=== PATIENT | female | born 1985 | race Caucasian/White ===

== ENCOUNTER 2016-08-30 21:06 | Emergency (ER) | payer OTHER ==
[~2016-08-30] VITALS: Ht 157.5 cm; Wt 113.4 kg
[~2016-08-30 21:06] MED LIST: HYDR-757 PO; IBUP-1773 PO; LETR2.5T4 PO; MTF500T PO
--- OUTSIDE RECORDS SUMMARY | 2016-08-30 21:11 | XMS REPORT ---
Author SONAM Jones [facility] eClinicalWorks Address Unknown Phone Unavailable Care Team Providers [facility] [employer] Team Member Name Role Phone SONAM FERNANDEZ CP Unavailable Allergies No Known Allergies Problems Problem Type Condition Code Onset Dates Condition Status Problem Syncope and collapse 780.2 Active Problem Female infertility of unspecified origin 628.9 Active Problem Encounter for dental examination Z01.20 Active Assessment Encounter for test, result unknown Z32.00 Active Problem Acute upper respiratory infections of unspecified site 465.9 Active Problem Pain in joint, shoulder region 719.41 Active Medications No Known Medications Procedures Procedure Coding System Code Date VENIPUNCT, ROUTINE* CPT-4 91325 January 24, 2016 CHORIONIC GONADOTROPIN ASSAY CPT-4 91095 January 24, 2016 Results No Known Results Summary Purpose eClinicalWorks Submission
--- NOTE | 2016-08-30 21:25 | ED Abdominal Pain ---
General Chief Complaint: Abdominal/GI Problems Stated Complaint: ABD PAIN Nursing Triage Note: PT C/O DIFFUSE ABD CRAMPING, N/V/D SINCE LAST NOC. Sepsis Screen: No Definite Risk Source of Information: Patient Exam Limitations: No Limitations History of Present Illness Time Seen By Provider: 21:24 Initial Comments To ER with diffuse abdominal pain and cramping. Pain is periumbilical both sides. Began this evening. She had nausea vomiting and diarrhea that started last night but subsided this morning. She has not had any nausea vomiting or diarrhea since 9 a.m. this morning with the pain has gotten worse. Timing/Duration: 1-2 Days Severity/Quality: Cramping Location: Generalized Abdomen, Periumbilical Radiation: No Radiation Activities at Onset: None Associated Symptoms: No Back Pain, No Chest Pain, No Diaphoresis, No Fever/ Chills, Nausea/Vomiting Allergies and Home Medications Allergies Coded Allergies: No Known Drug Allergies (Unverified , 09/12/11) Home Medications Hydrocodone Bit/Acetaminophen 1 Each Tablet #30 1-2 EA PO Q4H PRN PRN MILD PAIN Prescribed by: JAH ROLLE on 10/01/14 0954 Ibuprofen 600 Mg Tablet #60 600 MG PO Q6H Prescribed by: JAH ROLLE on 10/01/14 0954 Metformin Hcl 500 Mg Tablet 500 MG PO DAILY (Reported) Review of Systems Constitutional: see HPINo chills, No fever EENTM: No Symptoms Reported Respiratory: No Symptoms Reported Cardiovascular: No Symptoms Reported Gastrointestinal: See HPI Abdominal Pain Diarrhea Nausea Vomiting Genitourinary: No Symptoms Reported Musculoskeletal: no symptoms reported Skin: no symptoms reported Psychiatric/Neurological: No Symptoms Reported Endocrine: No Symptoms Reported Hematologic/Lymphatic: No Symptoms Reported Past Uujssfw-Ohcpqj-Barkhq Hx Patient Social History Alcohol Use: Denies Use Recreational Drug Use: No Smoking Status: Never a Smoker 2nd Hand Smoke Exposure: No Recent Foreign Travel: No Contact w/Someone Who Travel: No Recent Infectious Disease Expo: No Recent Hopitalizations: No Seasonal Allergies Seasonal Allergies: No Surgeries HX Surgeries: Yes (LAPAROCOPY) Respiratory Hx Respiratory Disorders: No Cardiovascular Hx Cardiac Disorders: No Neurological Hx Neurological Disorders: No Reproductive System Hx Reproductive Disorders: Yes Genitourinary Hx Genitourinary Disorders: No Gastrointestinal Hx Gastrointestinal Disorders: No Musculoskeletal Hx Musculoskeletal Disorders: No Endocrine Hx Endocrine Disorders: No HEENT HX ENT Disorders: Yes (CONTACTS) Cancer Hx Cancer: No Psychosocial Hx Psychiatric Problems: No Integumentary HX Skin/Integumentary Disorder: No Blood Transfusions Hx Blood Disorders: Yes Physical Exam Vital Signs VS - Last 72 Hours, by Label 08/30/16 21:16 Temp 98.9 Pulse 90 Resp 18 B/P 145/84 Pulse Ox 99 O2 Delivery Room Air Capillary Refill : Less Than 3 Seconds General Appearance: WD/WN no apparent distress HEENT: PERRL/EOMI normal ENT inspection Neck: non-tender full range of motion Respiratory: normal breath sounds no respiratory distress no accessory muscle use Cardiovascular: regular rate, rhythm no murmur Gastrointestinal: normal bowel sounds soft other (there is tenderness to palpation only on the left upper quadrant) Extremities: normal range of motion non-tender Neurologic/Psychiatric: alert normal mood/affect oriented x 3 Skin: normal color warm/dry Progress/Results/Core Measures Results/Orders Lab Results Laboratory Tests Test 08/30/16 21:30 08/30/16 21:42 Range/Units Alanine Aminotransferase (ALT/SGPT) 45 0-55 U/L Albumin 4.2 3.2-4.5 G/DL Alkaline Phosphatase 66 40-136 U/L Anion Gap 14 5-14 MMOL/L Aspartate Amino Transf (AST/SGOT) 37 H 5-34 U/L BUN/Creatinine Ratio 12 Basophils # (Auto) 0.0 0.0-0.1 10^3/uL Basophils (%) (Auto) 0 0-10 % Blood Urea Nitrogen 9 7-18 MG/DL Calcium Level 9.4 8.5-10.1 MG/DL Carbon Dioxide Level 19 L 21-32 MMOL/L Chloride Level 106 98-107 MMOL/L Creatinine 0.77 0.60-1.30 MG/DL Eosinophils # (Auto) 0.1 0.0-0.3 10^3/uL Eosinophils (%) (Auto) 1 0-10 % Estimat Glomerular Filtration Rate > 60 Glucose Level 110 H 70-105 MG/DL Hematocrit 43 35-52 % Hemoglobin 14.4 11.5-16.0 G/DL Lymphocytes # (Auto) 0.7 L 1.0-4.0 X 10^3 Lymphocytes (%) (Auto) 7 L 12-44 % Mean Corpuscular Hemoglobin 31 25-34 PG Mean Corpuscular Hemoglobin Concent 33 32-36 G/DL Mean Corpuscular Volume 93 80-99 FL Mean Platelet Volume 10.3 7.4-10.4 FL Monocytes # (Auto) 0.6 0.0-1.0 X 10^3 Monocytes (%) (Auto) 6 0-12 % Neutrophils # (Auto) 8.1 H 1.8-7.8 X 10^3 Neutrophils (%) (Auto) 86 H 42-75 % Platelet Count 312 130-400 10^3/uL Potassium Level 4.0 3.6-5.0 MMOL/L Red Blood Count 4.63 4.35-5.85 10^6/uL Red Cell Distribution Width 13.3 10.0-14.5 % Sodium Level 139 135-145 MMOL/L Total Bilirubin 0.4 0.1-1.0 MG/DL Total Protein 7.6 6.4-8.2 G/DL White Blood Count 9.4 4.3-11.0 10^3/uL Urine Bacteria NONE /HPF Urine Bilirubin NEGATIVE NEGATIVE Urine Casts NONE /LPF Urine Clarity CLEAR Urine Color YELLOW Urine Crystals NONE /LPF Urine Culture Indicated NO Urine Glucose (UA) NEGATIVE NEGATIVE Urine Ketones NEGATIVE NEGATIVE Urine Leukocyte Esterase NEGATIVE NEGATIVE Urine Mucus NEGATIVE /LPF Urine Nitrite NEGATIVE NEGATIVE Urine Protein NEGATIVE NEGATIVE Urine RBC NONE /HPF Urine RBC (Auto) NEGATIVE NEGATIVE Urine Specific [place] 1.020 1.016-1.022 Urine Squamous Epithelial Cells 5-10 /HPF Urine Urobilinogen NORMAL NORMAL MG/DL Urine WBC RARE /HPF Urine pH 5 5-9 My Orders Orders-GRACE GIL APRN Saline Lock/Iv-Start (08/30/16 21:22) Cbc With Automated Diff (08/30/16 21:22) Comprehensive Metabolic Panel (08/30/16 21:22) Lipase (08/30/16 21:22) Ua Culture If Indicated (08/30/16 21:22) Hyoscyamine Sl Tablet (Levsin Sl Tablet) (08/30/16 21:30) Ketorolac Injection (Toradol Injection) (08/30/16 21:30) Lactated Ringers (Lr 1000 Ml Iv Solution (08/30/16 21:30) Urine Bedside (08/30/16 21:22) Medications Given in ED Current Medications Medications Dose Ordered Sig/Milly Route Start Time Stop Time Status Last Admin Dose Admin Hyoscyamine Sulfate 0.25 mg ONCE ONCE PO 08/30/16 21:30 08/30/16 21:31 DC 08/30/16 21:35 0.25 MG Ketorolac Tromethamine 30 mg ONCE ONCE IVP 08/30/16 21:30 08/30/16 21:31 DC 08/30/16 21:35 30 MG Vital Signs/I&O Vital Sign - Last 12Hours 08/30/16 21:16 Temp 98.9 Pulse 90 Resp 18 B/P 145/84 Pulse Ox 99 O2 Delivery Room Air Blood Pressure Mean: 104 Departure Impression Impression: Primary Impression: Nausea vomiting and diarrhea Disposition: HOME, SELF-CARE Condition: Stable Departure-Patient Inst. Decision time for Depature: 22:11 Referrals: NO,LOCAL PHYSICIAN (PCP) Primary Care Physician Patient Instructions: No Instuctions Given Add. Discharge Instructions: 1. Drink plenty of fluids. 2. Nausea medication as needed 3. Cramping medication as needed 3. Follow-up with your doctor next week 4. Return to ER for any worsening such as fevers, worsening pain, bloody diarrhea. All discharge instructions reviewed with patient and/or family. Voiced understanding. Scripts Hyoscyamine Sulfate (Levsin-Sl)0.125 Mg Tab.subl0.125 Mg SL Q4H PRN CRAMPS #10 TAB Prov:GRACE GIL APRN 08/30/16 Ondansetron (Zofran Odt)8 Mg Tab.rapdis8 Mg PO Q6H PRN NAUSEA/VOMITING #10 TAB Prov:GRACE GIL APRN 08/30/16 Work/School Note: Work Release Form Date Seen in the Emergency Department: Aug 30, 2016 Return to Work: Sep 01, 2016 GRACE GIL APRN Aug 30, 2016 21:25
[2016-08-30] MEDS ORDERED: LACTATED RINGERS 1,000 ML IV SCH (21:30)
[2016-08-30] MEDS ORDERED: HYOSCYAMINE 0.125 MG (LEVSIN) TAB PO ONE (21:30)
[2016-08-30] MEDS ORDERED: KETOROLAC 30 MG/ML VIAL IVP ONE (21:30)
[2016-08-30 21:41] LABS: BASOPHILS % (AUTO) 0 % (0-10); EOSINOPHILS # (AUTO) 0.1 10^3/uL (0.0-0.3); EOSINOPHILS % (AUTO) 1 % (0-10); LYMPHOCYTES # (AUTO) 0.7 X 10^3 (1.0-4.0); LYMPHOCYTES % (AUTO) 7 % (12-44); MEAN CORPUSCULAR HEMOGLOBIN 31 PG (25-34); MEAN CORPUSCULAR HGB CONC 33 G/DL (32-36); MEAN CORPUSCULAR VOLUME 93 FL (80-99); MEAN PLATELET VOLUME 10.3 FL (7.4-10.4); MONOCYTES # (AUTO) 0.6 X 10^3 (0.0-1.0); MONOCYTES % (AUTO) 6 % (0-12); NEUTROPHILS # (AUTO) 8.1 X 10^3 (1.8-7.8); NEUTROPHILS % (AUTO) 86 % (42-75); PLATELET COUNT 312 10^3/uL (130-400); RED BLOOD COUNT 4.63 10^6/uL (4.35-5.85); RED CELL DISTRIBUTION WIDTH 13.3 % (10.0-14.5); WHITE BLOOD COUNT 9.4 10^3/uL (4.3-11.0)
[2016-08-30 21:53] LABS: BILIRUBIN,URINE NEGATIVE (NEGATIVE); KETONES,URINE NEGATIVE (NEGATIVE); LEUKOCYTE ESTERASE ,URINE NEGATIVE (NEGATIVE); NITRITE,URINE NEGATIVE (NEGATIVE); PH,URINE 5 (5-9); PROTEIN,URINE NEGATIVE (NEGATIVE); UROBILINOGEN,URINE NORMAL (NORMAL)
[2016-08-30 22:00] LABS: WBC,URINE RARE /HPF
[2016-08-30 22:05] LABS: ALANINE AMINOTRANSFERASE 45 U/L (0-55); ALBUMIN 4.2 G/DL (3.2-4.5); ANION GAP 14 MMOL/L (5-14); ASPARTATE AMINO TRANSFERASE 37 U/L (5-34); BILIRUBIN,TOTAL 0.4 MG/DL (0.1-1.0); BLOOD UREA NITROGEN 9 MG/DL (7-18); BUN/CREATININE RATIO 12; CALCIUM 9.4 MG/DL (8.5-10.1); CARBON DIOXIDE 19 MMOL/L (21-32); CHLORIDE 106 MMOL/L (98-107); CREATININE SERUM 0.77 MG/DL (0.60-1.30); GFR ESTIMATED > 60; GLUCOSE 110 MG/DL (70-105); SODIUM 139 MMOL/L (135-145); TOTAL PROTEIN 7.6 G/DL (6.4-8.2)
[2016-08-30] MEDS ORDERED: ONDA8TAB9 PO (22:12)
[2016-08-30] MEDS ORDERED: HYOS0.1283 SL (22:12)
[2016-08-30 22:18] LABS: LIPASE 25 U/L (8-78)
[2016-08-30 22:28] VITALS: BP 145/84
== END 2016-08-30 22:30 | disposition home or self-care (01) ==
LOC: EDUNIT# 21:06 → ER 21:07
DX: R11.2 Nausea with vomiting, unspecified (principal); R19.7 Diarrhea, unspecified
CPT/HCPCS: 36415; 80053; 81000; 83690; 85025; 96374

== ENCOUNTER 2017-03-03 02:37 | Emergency (ER) | payer OTHER ==
[~2017-03-03] VITALS: Ht 157.5 cm; Wt 113.4 kg
[~2017-03-03 02:37] MED LIST changes: +HYOS0.1283 SL; +ONDA8TAB9 PO
--- NOTE | 2017-03-03 03:09 | ED Lower Extremity ---
General Chief Complaint: Lower Extremity Stated Complaint: LEFT ANKLE PAIN Nursing Triage Note: Pt report worsening pain over 24 hrs in left foot. Pt states she no longer can stand to bear weight in the night when getting up. Pt has tried Ibuprofen. Pt denies any injury. Nursing Sepsis Screen: No Definite Risk Source: patient, spouse Exam Limitations: no limitations History of Present Illness Time seen by provider: 03:02 Initial Comments Patient states she presents for a left foot swelling and pain started approximately 24 hours ago is progressively gotten worse not given her any rest tonight. She has been taking ibuprofen 4-6 tablets every 6 hours around-the- clock as well as Tylenol. She has a history of PCO S but no diabetes or prior injury to this foot. She has no wounds to the foot. It is painful over the dorsum with some swelling compared to right. She is right-handed. She says never injured the foot never had a fracture of the foot never had a major ankle sprain. She has no pain in her calfs nor shortness of breath no redness nor tenderness nor cough or hemoptysis. She says this is happened once or twice before to this left foot and she taken to urgent care and was told to do rice therapy which she did and it eventually got better. She's never had an x-ray of it nor any workup prove why it's injured. Allergies and Home Medications Allergies Coded Allergies: No Known Drug Allergies (Unverified , 09/12/11) Home Medications Hydrocodone Bit/Acetaminophen 1 Each Tablet, 1-2 EA PO Q4H PRN for MILD PAIN, # 30 Prescribed by: JAH ROLLE on 10/01/14 0954 Hyoscyamine Sulfate 0.125 Mg Tab.subl, 0.125 MG SL Q4H PRN for CRAMPS, #10 Prescribed by: GRACE GIL on 08/30/162211 Ibuprofen 600 Mg Tablet, 600 MG PO Q6H, #60 Prescribed by: JAH ROLLE on 10/01/14 0954 Metformin Hcl 500 Mg Tablet, 500 MG PO DAILY, (Reported) Ondansetron 8 Mg Tab.rapdis, 8 MG PO Q6H PRN for NAUSEA/VOMITING, #10 Prescribed by: GRACE GIL on 08/30/162211 Constitutional: No chills, No diaphoresis EENTM: No blurred vision, No double vision Respiratory: No cough, No hemoptysis, No short of breath Cardiovascular: No chest pain, No palpitations Gastrointestinal: No abdominal pain, No constipation, No nausea Genitourinary: No discharge, No dysuria Musculoskeletal: see HPI, No back pain, joint pain Skin: No pruritus, No rash Psychiatric/Neurological: Denies Headache, Denies Numbness, Denies Paresthesia Past Qgjeplp-Euleoe-Pffuah Hx Patient Social History Alcohol Use: Rarely Uses Recreational Drug Use: No Smoking Status: Never a Smoker 2nd Hand Smoke Exposure: No Recent Foreign Travel: No Contact w/Someone Who Travel: No Recent Infectious Disease Expo: No Recent Hopitalizations: No Seasonal Allergies Seasonal Allergies: No Surgeries History of Surgeries: Yes (LAPAROCOPY) Respiratory History of Respiratory Disorde: No Cardiovascular History of Cardiac Disorders: No Neurological History of Neurological Disord: No Reproductive System : No (no menses in last year) Hx Reproductive Disorders: Yes Female Reproductive Disorders: Menstrual Problems, Polycystic Ovarian Dis Gastrointestinal History of Gastrointestinal Di: No Musculoskeletal History of Musculoskeletal Dis: No Endocrine History of Endocrine Disorders: No HEENT History of HEENT Disorders: No Cancer History of Cancer: No Psychosocial History of Psychiatric Problem: No Integumentary History of Skin or Integumenta: No Blood Transfusions History of Blood Disorders: No Physical Exam Vital Signs Vital Sign - Last 12Hours 03/03/17 02:45 Temp 96.4 Pulse 99 Resp 20 B/P (MAP) 171/88 Pulse Ox 93 O2 Delivery Room Air Capillary Refill : Less Than 3 Seconds General Appearance: WD/WN, no apparent distress HEENT: PERRL/EOMI, pharynx normal Cardiovascular: normal peripheral pulses, regular rate, rhythm Respiratory: lungs clear, normal breath sounds Legs: bilateral leg non-tender, bilateral leg normal inspection, bilateral leg normal range of motion, bilateral leg no evidence of injury Knees: bilateral knee non-tender, bilateral knee normal inspection, bilateral knee normal range of motion, bilateral knee no evidence of injury Ankles: right ankle non-tender, right ankle normal inspection, left ankle normal range of motion, right ankle no evidence of injury, left ankle joint effusion, left ankle pain (directly over the dorsal extensor retinaculum), left ankle soft tissue tenderness, left ankle swelling (trace edema) Feet: bilateral foot non-tender, bilateral foot normal inspection, bilateral foot normal range of motion, bilateral foot no evidence of injury Neurologic/Tendon: normal sensation, normal motor functions, normal tendon functions, responds to pain, no evidence tendon injury Neurologic/Psychiatric: no motor/sensory deficits, alert, oriented x 3 Skin: normal color, warm/dry Lymphatic: no adenopathy Progress/Results/Core Measures Results/Orders My Orders Orders - JEF TORRES Dexamethasone Injection (Decadron Inject (03/03/17 03:15) Hydrocodone/Apap 5/325 Tablet (Lortab 5 (03/03/17 03:15) Vital Signs/I&O Vital Sign - Last 12Hours 03/03/17 02:45 Temp 96.4 Pulse 99 Resp 20 B/P (MAP) 171/88 Pulse Ox 93 O2 Delivery Room Air Blood Pressure Mean: 115 Progress Note : Time: 03:08 Progress Note No evidence of DVT on clinical exam. Her pain is directly over the retinaculum and seems like a soft tissue injury or reinjury. She would best be served by following up with podiatry. No evidence of a hot, swollen, red, infected joint or any fevers nausea or chills. With no traumatic history and x-rays back to be on unremarkable. Departure Impression Impression: Primary Impression: Left ankle pain Qualified Codes: M25.572 - Pain in left ankle and joints of left foot Additional Impression: Left ankle swelling Disposition: 01 HOME, SELF-CARE Condition: Stable Departure-Patient Inst. Decision time for Depature: 03:09 Referrals: NO,LOCAL PHYSICIAN (PCP/Family) Primary Care Physician Patient Instructions: Sprain (DC) Add. Discharge Instructions: Respiratory ankle when possible. Elevate above the level of your heart. Apply a light compression dressing such as an Sagar bandage. Apply ice for 20 minutes every 4-6 hours as needed to control swelling and pain. Sunday follow-up with a surfacer operator or your primary care physician. If your foot or calf becomes red hot and swollen or you develop a fever or nausea then you should return to the ER. Take Tylenol 1000 mg every 8 hours or ibuprofen 800 mg every 8 hours. In lieu of ibuprofen you can use Naprosyn or Aleve 2 capsules twice a day. The Decadron shot should start taking effect within 12-24 hours. It may cause a little insomnia or flushing in the face for the next few days. All discharge instructions reviewed with patient and/or family. Voiced understanding. JEF TORRES Mar 03, 2017 03:09
[2017-03-03] MEDS ORDERED: HYDROcodone/APAP 5 MG/325 MG (LORTAB) TAB PO ONE (03:15)
[2017-03-03] MEDS ORDERED: DEXAMETHASONE 4 MG/ML SDV (DECADRON) IV ONE (03:15)
[2017-03-03 03:27] VITALS: BP 171/88
== END 2017-03-03 03:27 | disposition home or self-care (01) ==
LOC: EDUNIT# 02:37 → ER 02:39
DX: M25.472 Effusion, left ankle (principal); Z87.42 Personal history of other diseases of the female genital tract; Z79.84 Long term (current) use of oral hypoglycemic drugs
CPT/HCPCS: 96374; 99284

== ENCOUNTER 2019-05-25 02:45 | Emergency (ER) | payer OTHER ==
[~2019-05-25] VITALS: Ht 157 cm; Wt 104.0 kg
[2019-05-25 03:43] LABS: BASOPHILS % (AUTO) 0 % (0-10); EOSINOPHILS # (AUTO) 0.1 10^3/uL (0.0-0.3); EOSINOPHILS % (AUTO) 2 % (0-10); HEMATOCRIT 42 % (35-52); HEMOGLOBIN 13.8 G/DL (11.5-16.0); LYMPHOCYTES % (AUTO) 22 % (12-44); MEAN CORPUSCULAR HEMOGLOBIN 31 PG (25-34); MEAN CORPUSCULAR HGB CONC 33 G/DL (32-36); MEAN CORPUSCULAR VOLUME 94 FL (80-99); MEAN PLATELET VOLUME 9.8 FL (7.4-10.4); MONOCYTES # (AUTO) 0.7 X 10^3 (0.0-1.0); MONOCYTES % (AUTO) 8 % (0-12); NEUTROPHILS % (AUTO) 68 % (42-75); PLATELET COUNT 331 10^3/uL (130-400); RED CELL DISTRIBUTION WIDTH 13.4 % (10.0-14.5); WHITE BLOOD COUNT 8.8 10^3/uL (4.3-11.0)
[2019-05-25] MEDS ORDERED: ONDANSETRON 4 MG/2 ML (SDV) Z0FRAN ONE (03:53)
[2019-05-25] MEDS ORDERED: LACTATED RINGERS 1,000 ML IV ONE (03:56)
[2019-05-25] MEDS ORDERED: ONDANSETRON 4 MG/2 ML (SDV) Z0FRAN IVP ONE (04:00)
[2019-05-25 04:02] LABS: BILIRUBIN,URINE NEGATIVE (NEGATIVE); CLARITY,URINE CLEAR; COLOR,URINE YELLOW; GLUCOSE, URINE (UA) NEGATIVE (NEGATIVE); KETONES,URINE NEGATIVE (NEGATIVE); LEUKOCYTE ESTERASE ,URINE 1+ (NEGATIVE); NITRITE,URINE NEGATIVE (NEGATIVE); PH,URINE 5.5 (5-9); PROTEIN,URINE NEGATIVE (NEGATIVE)
[2019-05-25 04:05] LABS: ALANINE AMINOTRANSFERASE 26 U/L (0-55); ALBUMIN 4.1 GM/DL (3.2-4.5); ALKALINE PHOSPHATASE 62 U/L (40-136); AMYLASE 153 U/L (25-125); BILIRUBIN,TOTAL 0.3 MG/DL (0.1-1.0); BUN/CREATININE RATIO 14; CALCIUM 9.6 MG/DL (8.5-10.1); CARBON DIOXIDE 21 MMOL/L (21-32); CHLORIDE 107 MMOL/L (98-107); CREATININE SERUM 0.86 MG/DL (0.60-1.30); GFR ESTIMATED > 60; GLUCOSE 187 MG/DL (70-105); LIPASE 49 U/L (8-78); POTASSIUM 4.1 MMOL/L (3.6-5.0); SODIUM 143 MMOL/L (135-145); TOTAL PROTEIN 7.5 GM/DL (6.4-8.2)
[2019-05-25] MEDS ORDERED: ORPHENADRINE 60 MG/2 ML (NORFLEX) AMP IV ONE (04:15)
[2019-05-25] MEDS ORDERED: KETOROLAC 30 MG/ML VIAL IVP ONE (04:15)
[2019-05-25 04:18] LABS: BACTERIA,URINE FEW /HPF; RBC,URINE 50-100 /HPF; SQUAMOUS EPITHELIAL CELL,UR 0-2 /HPF; WBC,URINE RARE /HPF
--- NOTE | 2019-05-25 04:18 | ED Abdominal Pain ---
General Chief Complaint: Abdominal/GI Problems Stated Complaint: ABD PAIN LT SIDE Source of Information: Patient History of Present Illness Date Seen by Provider: May 25, 2019 Time Seen by Provider: 03:25 Initial Comments PT ARRIVES VIA POV FROM HOME STATES SHE WOKE UP AT 0200 WITH SEVERE PAIN IN LLQ, THEN BEGAN HAVING NAUSEA AND VOMITING PAIN IS CONSTANT AND NOTHING WORSENS OR IMPROVES PAIN HAS NOT TAKEN ANYTHING FOR PAIN NO FEVER NO URINARY SYMPTOMS NO HISTORY OF SIMILAR ONLY PRIOR SURGERY WAS LAPAROSCOPY / HYSTEROSCOPY FOR INFERTILITY PROBLEMS--YEARS AGO. STATES DOES NOT FEEL LIKE PAIN SHE HAS HAD FROM OVARIAN CYSTS. LMP IS UNKNOWN--STATES SHE HAS PCOS AND DOES NOT REALLY HAVE PERIODS. NO CONTROL PCP: Allergies and Home Medications Allergies Coded Allergies: No Known Drug Allergies (Unverified , 09/12/11) Home Medications Hydrocodone Bit/Acetaminophen 1 Each Tablet, 1-2 EA PO Q4H PRN for MILD PAIN Prescribed by: JAH ROLLE on 10/01/14953 Hydrocodone/Ibuprofen 1 Each Tablet, 1-2 EACH PO Q4H PRN for PAIN-MODERATE Prescribed by: VERONICA KNOX on 05/25/19636 Hyoscyamine Sulfate 0.125 Mg Tab.subl, 0.125 MG SL Q4H PRN for CRAMPS Prescribed by: GRACE GIL on 08/30/162211 Ibuprofen 600 Mg Tablet, 600 MG PO Q6H Prescribed by: JAH ROLLE on 10/01/14953 Metformin Hcl 500 Mg Tablet, 500 MG PO DAILY, (Reported) Nitrofurantoin Monohyd/M-Cryst 100 Mg Capsule, 100 MG PO BID Prescribed by: VERONICA KNOX on 05/25/19636 Ondansetron 8 Mg Tab.rapdis, 8 MG PO Q6H PRN for NAUSEA/VOMITING Prescribed by: GRACE GIL on 08/30/162211 Ondansetron 8 Mg Tab.rapdis, 8 MG PO Q6H Prescribed by: VERONICA KNOX on 05/25/19636 Tamsulosin HCl 0.4 Mg Cap, 0.4 MG PO DAILY Prescribed by: VERONICA KNOX on 05/25/19636 Patient Home Medication List Home Medication List Reviewed: Yes Review of Systems Review of Systems Constitutional: no symptoms reported Respiratory: No Symptoms Reported Cardiovascular: No Symptoms Reported Gastrointestinal: See HPI, Abdominal Pain, Nausea, Vomiting Genitourinary: No Symptoms Reported Musculoskeletal: no symptoms reported; No back pain Skin: no symptoms reported Psychiatric/Neurological: Anxiety Endocrine: No Symptoms Reported Hematologic/Lymphatic: No Symptoms Reported Past Jwumota-Mlmrru-Xibpqf Hx Patient Social History Alcohol Use: Denies Use Recreational Drug Use: No Smoking Status: Current Everyday Smoker Type Used: Cigarettes 2nd Hand Smoke Exposure: No Recent Foreign Travel: No Contact w/Someone Who Travel: No Recent Hopitalizations: No Physical Abuse: No Sexual Abuse: No Mistreated: No Fear: No Immunizations Up To Date Tetanus Booster (TDap): Unknown PED Vaccines UTD: Yes Seasonal Allergies Seasonal Allergies: No Past Medical History Surgeries: Yes (LAPAROSCOPY/HYSTEROSCOPY FOR INFERTILITY ISSUES) Respiratory: No Cardiac: No Neurological: No : No (NO PERIODS FOR LONG TIME DUE TO PCOS, INFERTILE) Reproductive Disorders: Yes (INFERTILITY) Female Reproductive Disorders: Menstrual Problems, Polycystic Ovarian Dis Genitourinary: No Gastrointestinal: No Musculoskeletal: No Endocrine: Yes (MORBID OBESITY) HEENT: No Cancer: No Psychosocial: No Integumentary: No Blood Disorders: No Physical Exam Vital Signs Vital Signs - First Documented 05/25/19 03:22 Temp 36.7 Pulse 89 Resp 22 B/P (MAP) 140/108 (119) Pulse Ox 96 O2 Delivery Room Air Capillary Refill : Height/Weight/BMI Height: 5'2.00" Weight: 250lbs. oz. [id number]; 40.27 BMI Method:Stated General Appearance: obese, other (MOANING, ROCKING BACK AND FORTH, GUARDING LEFT ABDOMEN WITH PILLOW. APPEARS TO BE IN DISCOMFORT) Respiratory: normal breath sounds, no respiratory distress, no accessory muscle use, other (HYPERVENTILATING) Cardiovascular: regular rate, rhythm, no murmur Gastrointestinal: soft, guarding, tenderness (LLQ) Extremities: normal inspection, normal capillary refill Back: no CVA tenderness Neurologic/Psychiatric: research administrator II-XII nml as tested, no motor/sensory deficits, alert, oriented x 3 Skin: normal color, warm/dry; No rash Progress/Results/Core Measures Results/Orders Lab Results Laboratory Tests Test 05/25/19 03:30 05/25/19 03:40 Range/Units White Blood Count 8.8 4.3-11.0 10^3/uL Red Blood Count 4.44 4.35-5.85 10^6/uL Hemoglobin 13.8 11.5-16.0 G/DL Hematocrit 42 35-52 % Mean Corpuscular Volume 94 80-99 FL Mean Corpuscular Hemoglobin 31 25-34 PG Mean Corpuscular Hemoglobin Concent 33 32-36 G/DL Red Cell Distribution Width 13.4 10.0-14.5 % Platelet Count 331 130-400 10^3/uL Mean Platelet Volume 9.8 7.4-10.4 FL Neutrophils (%) (Auto) 68 42-75 % Lymphocytes (%) (Auto) 22 12-44 % Monocytes (%) (Auto) 8 0-12 % Eosinophils (%) (Auto) 2 0-10 % Basophils (%) (Auto) 0 0-10 % Neutrophils # (Auto) 6.0 1.8-7.8 X 10^3 Lymphocytes # (Auto) 2.0 1.0-4.0 X 10^3 Monocytes # (Auto) 0.7 0.0-1.0 X 10^3 Eosinophils # (Auto) 0.1 0.0-0.3 10^3/uL Basophils # (Auto) 0.0 0.0-0.1 10^3/uL Sodium Level 143 135-145 MMOL/L Potassium Level 4.1 3.6-5.0 MMOL/L Chloride Level 107 98-107 MMOL/L Carbon Dioxide Level 21 21-32 MMOL/L Anion Gap 15 H 5-14 MMOL/L Blood Urea Nitrogen 12 7-18 MG/DL Creatinine 0.86 0.60-1.30 MG/DL Estimat Glomerular Filtration Rate > 60 BUN/Creatinine Ratio 14 Glucose Level 187 H 70-105 MG/DL Calcium Level 9.6 8.5-10.1 MG/DL Corrected Calcium 9.5 8.5-10.1 MG/DL Total Bilirubin 0.3 0.1-1.0 MG/DL Aspartate Amino Transf (AST/SGOT) 25 5-34 U/L Alanine Aminotransferase (ALT/SGPT) 26 0-55 U/L Alkaline Phosphatase 62 40-136 U/L Total Protein 7.5 6.4-8.2 GM/DL Albumin 4.1 3.2-4.5 GM/DL Amylase Level 153 H 25-125 U/L Lipase 49 8-78 U/L Urine Color YELLOW Urine Clarity CLEAR Urine pH 5.5 5-9 Urine Specific [place] 1.025 H 1.016-1.022 Urine Protein NEGATIVE NEGATIVE Urine Glucose (UA) NEGATIVE NEGATIVE Urine Ketones NEGATIVE NEGATIVE Urine Nitrite NEGATIVE NEGATIVE Urine Bilirubin NEGATIVE NEGATIVE Urine Urobilinogen 0.2 < = 1.0 MG/DL Urine Leukocyte Esterase 1+ H NEGATIVE Urine RBC (Auto) 3+ H NEGATIVE Urine RBC 50-100 H /HPF Urine WBC RARE /HPF Urine Squamous Epithelial Cells 0-2 /HPF Urine Crystals NONE /LPF Urine Bacteria FEW H /HPF Urine Casts NONE /LPF Urine Mucus NEGATIVE /LPF Urine Culture Indicated NO My Orders Orders - VERONICA KNOX DO Ed Iv/Invasive Line Start (05/25/19 03:28) Urine Bedside (05/25/19 03:28) Amylase (05/25/19 03:28) Cbc With Automated Diff (05/25/19 03:28) Comprehensive Metabolic Panel (05/25/19 03:28) Lipase (05/25/19 03:28) Ua Culture If Indicated (05/25/19 03:28) Ondansetron Injection (Zofran Injectio (05/25/19 03:53) Ondansetron Injection (Zofran Injectio (05/25/19 04:00) Ed Iv/Invasive Line Start (05/25/19 03:56) Lactated Ringers (Lr 1000 Ml Iv Solution (05/25/19 03:56) Ct Abd/Pelvis Wo(Kidney Stone) (05/25/19 04:07) Acute Abd Series (05/25/19 04:07) Ketorolac Injection (Toradol Injection) (05/25/19 04:15) Orphenadrine Injection (Norflex Injectio (05/25/19 04:15) Rx-Hydrocodone/Apap 5-325 Mg (Rx-Vicodin (05/25/19 06:30) Rx-Ondansetron Po (Rx-Zofran Po) (05/25/19 06:28) Nitrofurantoin Capsule,Macro (Macrobid C (05/25/19 06:30) Tamsulosin Capsule (Flomax Capsule) (05/25/19 06:30) Medications Given in ED Current Medications Medications Dose Ordered Sig/Milly Route Start Time Stop Time Status Last Admin Dose Admin Ketorolac Tromethamine 30 mg ONCE ONCE IVP 05/25/19 04:15 05/25/19 04:16 DC 05/25/19 04:33 30 MG Lactated Ringer's 1,000 ml @ 0 mls/hr Q0M ONCE IV 05/25/19 03:56 05/25/19 03:57 DC 05/25/19 04:03 1,000 MLS/HR Ondansetron HCl 8 mg ONCE ONCE IVP 05/25/19 04:00 05/25/19 04:01 DC 05/25/19 04:01 8 MG Orphenadrine Citrate 60 mg ONCE ONCE IV 05/25/19 04:15 05/25/19 04:16 DC 05/25/19 04:32 60 MG Vital Signs/I&O 05/25/19 03:22 Temp 36.7 Pulse 89 Resp 22 B/P (MAP) 140/108 (119) Pulse Ox 96 O2 Delivery Room Air Progress Progress Note : Progress Note PT VOMITED/DRY HEAVED MULTIPLE TIMES ON ARRIVAL GIVEN ZOFRAN AND TORADOL WITH COMPLETE RESOLUTION OF PAIN AND NAUSEA Diagnostic Imaging Comments ABDOMEN XRAYS--NO ACUTE PROCESS, MULTIPLE CALCIFICATIONS IN PELVIS--PENDING RADIOLOGIST REVIEW CT ABDOMEN / PELVIS--PUNCTATE CALCIFICATION LEFT UVJ WITH MILD DILATION OF LEFT RENAL COLLECTING SYSTEM. MILD LEFT PERINEPHRIC STRANDING. NON OBSTRUCTING RIGHT INTRARENAL CALCULUS. HEPATOMEGALY AND DIFFUSE HEPATIC STEATOSIS. 5.1 CM RIGHT ADNEXAL CYSTIC MASS. PER [facility] VIA FAX AT 0619 Reviewed: Reviewed by Me Departure Impression Primary Impression: Calculus of distal left ureter Additional Impression: Right ovarian cyst Disposition: HOME, SELF-CARE Condition: Improved Departure-Patient Inst. Referrals: NO,LOCAL PHYSICIAN (PCP) Primary Care Physician CELI PASCUAL MD Patient Instructions: How to Strain Your Urine, Kidney Stones (DC), Ovarian Cyst (DC) Add. Discharge Instructions: LOTS OF CLEAR LIQUIDS STRAIN ALL URINE--RETURN ANY STONES TO DR'S OFFICE FOLLOW UP WITH DR. PASCUAL OR UROLOGIST OF CHOICE THIS WEEK FOR FURTHER CARE--RETURN TO ER IF SYMPTOMS WORSEN FOLLOW UP WITH YOUR STATIONARY ENGINEER SUPERVISOR IN 1-2 WEEKS FOR FOLLOW UP ON OVARIAN CYST All discharge instructions reviewed with patient and/or family. Voiced understanding. Scripts Ondansetron (Ondansetron Odt) 8 Mg Tab.rapdis 8 MG PO Q6H for Nausea/Vomiting, #10 TAB Prov: VERONICA KNOX DO 05/25/19 Nitrofurantoin Monohyd/M-Cryst (Macrobid 100 mg Capsule) 100 Mg Capsule 100 MG PO BID, #20 CAP Prov: VERONICA KNOX DO 05/25/19 Hydrocodone/Ibuprofen (Hydrocodone-Ibuprofen 7.5-200) 1 Each Tablet 1-2 EACH PO Q4H PRN for PAIN-MODERATE for 3 Days, #20 TAB Prov: VERONICA KNOX DO 05/25/19 Tamsulosin HCl (Flomax) 0.4 Mg Cap 0.4 MG PO DAILY, #10 CAP Prov: VERONICA KNOX DO 05/25/19 VERONICA KNOX DO May 25, 2019 04:18 POS
[2019-05-25] MEDS ORDERED: RX-ONDANSETRON 4 MG ODT (ZOFRAN) PPK #4 PO STA (06:28)
[2019-05-25] MEDS ORDERED: TAMSULOSIN 0.4 MG (FLOMAX) CAP PO SCH (06:30)
[2019-05-25] MEDS ORDERED: NITROFURANTOIN 100 MG (MACROBID) CAPSULE PO ONE (06:30)
[2019-05-25] MEDS ORDERED: RX-HYDROCODONE/APAP 5/325 MG #4 TAB PK PO PRN (06:30)
[2019-05-25] MEDS ORDERED: ONDA8TAB13 PO (06:37)
[2019-05-25] MEDS ORDERED: TAMS0.4C98 PO (06:37)
[2019-05-25] MEDS ORDERED: NITR-65 PO (06:37)
[2019-05-25] MEDS ORDERED: HYDR-87 PO (06:37)
--- NOTE | 2019-05-25 06:46 | Diagnostic Imaging Report ---
INDICATION: Pain FINDINGS: The lungs are clear. The heart and vessels normal. There is no effusion or pneumothorax. The bowel gas pattern unremarkable. Pelvic phleboliths present. Colonic fecal load is borderline mildly elevated. In the appropriate scenario mild constipation could not be excluded. This is not grossly pathologic however. IMPRESSION: No convincing evidence for acute abnormality. Questionable findings of mild constipation. Dictated by: Dictated on workstation # [id number]
--- NOTE | 2019-05-25 07:01 | Diagnostic Imaging Report ---
PROCEDURE: CT urinary tract, rule out kidney stone. TECHNIQUE: Multiple contiguous axial images were obtained through the abdomen and pelvis without the use of intravenous contrast. Auto Exposure Controls were utilized during the CT exam to meet ALARA standards for radiation dose reduction. INDICATION: Abdominal and pelvic pain. FINDINGS: Lung bases demonstrate no infiltrate or evidence of an effusion. There is no pericardial collection. The liver demonstrates marked low density with hepatomegaly. There is diffuse hepatic steatosis with some focal fatty sparing along the gallbladder fossa. Gallbladder nondistended without radiodense gallstone or evidence of biliary dilatation. The pancreas is unremarkable. The spleen is normal in size. There is no adrenal mass. There is a punctate stone demonstrated at the left ureterovesicular junction measures just over [address] This results in minimal left-sided hydronephrosis and hydroureter. There is a punctate stone in the right kidney. There is no right-sided hydronephrosis or stone within the collecting system. There are no findings of bowel obstruction. There is no abnormal bowel thickening. The appendix is normal. There is moderate stool within the colon. There is a 4.6 cm low density right adnexal lesion most compatible with an ovarian cyst. Left ovary unremarkable. Uterus is normal. Urinary bladder otherwise unremarkable. There are no findings of free air or free fluid or abscess. There are no pathologically enlarged lymph nodes. Aorta normal in caliber. There is no acute or suspicious osseous abnormality. IMPRESSION: 1. Tiny stone measuring just over 1 mm just at the left ureterovesicular junction results in mild left-sided hydronephrosis and hydroureter. 2. Punctate nonobstructive stone within the right kidney. 3. Hepatic steatosis. 4. Right ovarian cyst. No free air, free fluid or focal inflammation within the omentum or mesentery. Dictated by: Dictated on workstation # [id number]
[2019-05-25 07:17] VITALS: BP 121/64
== END 2019-05-25 07:17 | disposition home or self-care (01) ==
LOC: EDUNIT# 02:45 → ER 02:47
DX: N13.2 Hydronephrosis with renal and ureteral calculous obstruction (principal); N83.201 Unspecified ovarian cyst, right side; E66.01 Morbid (severe) obesity due to excess calories; F17.210 Nicotine dependence, cigarettes, uncomplicated; Z79.84 Long term (current) use of oral hypoglycemic drugs; Z68.41 Body mass index [BMI] 40.0-44.9, adult
CPT/HCPCS: 36415; 74022; 74176; 80053; 81000; 82150; 83690; 84703; 85025; 96361; 96374; 96375

== ENCOUNTER 2020-06-25 21:33 | Inpatient (IN) | payer OTHER ==
[~2020-06-25] VITALS: Ht 157.4 cm; Wt 126.8 kg
[~2020-06-25 21:33] MED LIST changes: +HYDR-87 PO; +NITR-65 PO; +ONDA8TAB13 PO; +TMSL.4C PO
[2020-06-25] MEDS ORDERED: LACTATED RINGERS 1,000 ML IV ONE (22:03)
[2020-06-25] MEDS ORDERED: KETOROLAC 30 MG/ML VIAL ONE (22:09)
[2020-06-25 22:15] LABS: BASOPHILS % (AUTO) 0 % (0-10); EOSINOPHILS # (AUTO) 0.1 10^3/uL (0.0-0.3); EOSINOPHILS % (AUTO) 0 % (0-10); HEMATOCRIT 40 % (35-52); HEMOGLOBIN 13.3 g/dL (11.5-16.0); LYMPHOCYTES # (AUTO) 1.7 10^3/uL (1.0-4.0); LYMPHOCYTES % (AUTO) 12 % (12-44); MEAN CORPUSCULAR HEMOGLOBIN 31 pg (25-34); MEAN CORPUSCULAR HGB CONC 33 g/dL (32-36); MEAN CORPUSCULAR VOLUME 94 fL (80-99); MEAN PLATELET VOLUME 10.5 fL (9.0-12.2); MONOCYTES # (AUTO) 0.9 10^3/uL (0.0-1.0); MONOCYTES % (AUTO) 7 % (0-12); NEUTROPHILS % (AUTO) 80 % (42-75); PLATELET COUNT 326 10^3/uL (130-400); WHITE BLOOD COUNT 13.7 10^3/uL (4.3-11.0)
[2020-06-25 22:25] LABS: ALBUMIN 3.8 GM/DL (3.2-4.5)
[2020-06-25] MEDS ORDERED: cefTRIAXone 1,000 MG/2.86 ml vial (IM ONLY) ONE (22:25)
[2020-06-25] MEDS ORDERED: WATER (STERILE) FOR INJECTION 10 ML ONE (22:25)
[2020-06-25 22:26] LABS: CHLORIDE 104 MMOL/L (98-107); POTASSIUM 3.7 MMOL/L (3.6-5.0); SODIUM 136 MMOL/L (135-145)
[2020-06-25 22:27] LABS: CALCIUM 8.9 MG/DL (8.5-10.1)
[2020-06-25 22:28] LABS: GLUCOSE 255 MG/DL (70-105); INR 1.1 (0.8-1.4); PROTHROMBIN TIME PATIENT 14.2 SEC (12.2-14.7); TOTAL PROTEIN 7.6 GM/DL (6.4-8.2)
[2020-06-25] MEDS ORDERED: VANCOMYCIN INJECTION 2,000 MG in NS IV 500 ML 500 ML IV ONE (22:28)
[2020-06-25 22:29] LABS: CARBON DIOXIDE 20 MMOL/L (21-32)
[2020-06-25 22:30] LABS: BILIRUBIN,TOTAL 0.4 MG/DL (0.1-1.0)
[2020-06-25] MEDS ORDERED: cefTRIAXone FOR IV USE 1,000 MG in WATER (STERILE) FOR INJECTION 10 ML IV ONE (22:30)
[2020-06-25 22:31] LABS: ALKALINE PHOSPHATASE 67 U/L (40-136)
[2020-06-25 22:32] LABS: CREATININE SERUM 0.82 MG/DL (0.60-1.30); GFR ESTIMATED > 60
[2020-06-25 22:33] LABS: BUN/CREATININE RATIO 13
[2020-06-25 22:35] LABS: ALANINE AMINOTRANSFERASE 23 U/L (0-55)
--- NOTE | 2020-06-25 22:45 | ED General ---
General Chief Complaint: Bite-Animal/Human/Insect Stated Complaint: BUG BITE,FEVER Nursing Triage Note: c/o possible spider bite since sunday, reports pain/redness worsened sunday. c/o fever today. Nursing Sepsis Screen: Possible Severe Sepsis Risk Source of Information: Patient Exam Limitations: No Limitations History of Present Illness Date Seen by Provider: Jun 25, 2020 Time Seen by Provider: 21:42 Initial Comments This 35-year-old woman presents to the emergency room with complaints of pain, swelling, and induration of the right upper inner thigh with associated fever. Symptoms started on June 21. She also reports a mild dry cough. She noticed some clear drainage coming from the center of the affected area but no purulent drainage. She denies any history of MRSA. She has no primary care provider. Allergies and Home Medications Allergies Coded Allergies: No Known Drug Allergies (Unverified , 09/12/11) Patient Home Medication List Home Medication List Reviewed: Yes Review of Systems Review of Systems Constitutional: see HPI EENTM: no symptoms reported Respiratory: see HPI Cardiovascular: other (Tachycardia) Gastrointestinal: no symptoms reported Genitourinary: no symptoms reported : No Musculoskeletal: no symptoms reported Skin: see HPI Psychiatric/Neurological: No Symptoms Reported Hematologic/Lymphatic: No Symptoms Reported Immunological/Allergic: no symptoms reported Past Sltavek-Aqbhme-Dkrjlj Hx Past Med/Social Hx: Reviewed Nursing Past Med/Soc Hx Patient Social History Alcohol Use: Rarely Uses Recreational Drug Use: No Smoking Status: Current Everyday Smoker Type Used: Cigarettes 2nd Hand Smoke Exposure: No Recent Foreign Travel: No Contact w/Someone Who Travel: No Recent Infectious Disease Expo: No Recent Hopitalizations: No Immunizations Up To Date Tetanus Booster (TDap): Unknown PED Vaccines UTD: Yes Seasonal Allergies Seasonal Allergies: No Past Medical History Surgeries: Yes (LAPAROSCOPY/HYSTEROSCOPY FOR INFERTILITY ISSUES) Respiratory: No Cardiac: No Neurological: No : No Last Menstrual Period: Jun 11, 2020 Reproductive Disorders: Yes (INFERTILITY) Female Reproductive Disorders: Menstrual Problems, Polycystic Ovarian Dis Genitourinary: No Gastrointestinal: No Musculoskeletal: No Endocrine: Yes (MORBID OBESITY) HEENT: No Cancer: No Psychosocial: No Integumentary: No Blood Disorders: No Physical Exam-Suspected Sepsis Physical Exam Vital Signs Vital Signs - First Documented 06/25/20 21:37 Temp 38.1 Pulse 96 Resp 22 B/P (MAP) 130/80 (97) Pulse Ox 98 O2 Delivery Room Air Capillary Refill : Less Than 3 Seconds Blood Pressure Mean: 97 Height, Weight, BMI Height: 5'2.00" Weight: 250lbs. oz. 113.622865fl; 42.00 BMI Method:Stated General Appearance: No Apparent Distress, WD/WN, Obese HEENT: PERRL/EOMI, Normal ENT Inspection Neck: Normal Inspection Respiratory: Lungs Clear, Normal Breath Sounds, No Accessory Muscle Use Cardiovascular: No Edema, No Murmur, Tachycardia Gastrointestinal: Non Tender, Soft Extremity: No Pedal Edema, Other (Large area of erythema, induration, and tenderness at the right upper inner thigh) Neurologic/Psychiatric: Alert, Oriented x3, No Motor/Sensory Deficits, Normal Mood/Affect, tobacco sizer II-XII Norm as Tested Skin: other (See above) Focused Exam Sepsis Stage: Severe Sepsis Possible Source: Skin/Soft Tissue Lactate Level 06/25/20 01:04: 06/25/20 21:55: Lactic Acid Level 2.18*H Time of Focused Exam: 23:00 Respiratory: Lungs Clear, Normal Breath Sounds, No Accessory Muscle Use Cardiovascular: No Edema, No Murmur, Tachycardia Capillary Refill: Less Than 3 Seconds Peripheral Pulses: 3+ Radial Pulses (L) Skin: normal color, warm/dry, other (Erythema of the right inner thigh as previously described) Lactic Acid Level Laboratory Tests Test 06/25/20 21:55 Lactic Acid Level 2.18 MMOL/L (0.50-2.00) *H Within 3hrs of presentation: Admin fluids, Admin 30ml/kg IBW due to BMI>30, Admin ABX, Blood cultures prior to ABX's, Focus exam, Lactate level Progress/Results/Core Measures Suspected Sepsis Recent Fever Within 48 Hours: Yes Infection Criteria Present: Suspected New Infection New/Unexplained Altered Menta: No Sepsis Screen: Possible Severe Sepsis Risk SIRS Temperature: Pulse: 96 Respiratory Rate: 22 Laboratory Tests 06/25/20 21:55: White Blood Count 13.7H Blood Pressure 130 /80 Mean: 97 06/25/20 01:04: 06/25/20 21:55: Lactic Acid Level 2.18*H Laboratory Tests 06/25/20 21:55: Creatinine 0.82, INR Comment 1.1, Platelet Count 326, Total Bilirubin 0.4 Results/Orders Lab Results Laboratory Tests Test 06/25/20 00:38 06/25/20 01:04 06/25/20 21:55 Range/Units Urine Color YELLOW Urine Clarity SL CLOUDY Urine pH 6.0 5-9 Urine Specific [place] 1.025 H 1.016-1.022 Urine Protein NEGATIVE NEGATIVE Urine Glucose (UA) 1+ H NEGATIVE Urine Ketones TRACE H NEGATIVE Urine Nitrite NEGATIVE NEGATIVE Urine Bilirubin NEGATIVE NEGATIVE Urine Urobilinogen 0.2 < = 1.0 MG/DL Urine Leukocyte Esterase NEGATIVE NEGATIVE Urine RBC (Auto) 1+ H NEGATIVE Urine RBC 5-10 H /HPF Urine WBC NONE /HPF Urine Squamous Epithelial Cells 5-10 /HPF Urine Crystals NONE /LPF Urine Bacteria FEW H /HPF Urine Casts NONE /LPF Urine Mucus MODERATE H /LPF Urine Culture Indicated CULTURE PENDING White Blood Count 13.7 H 4.3-11.0 10^3/uL Red Blood Count 4.28 3.80-5.11 10^6/uL Hemoglobin 13.3 11.5-16.0 g/dL Hematocrit 40 35-52 % Mean Corpuscular Volume 94 80-99 fL Mean Corpuscular Hemoglobin 31 25-34 pg Mean Corpuscular Hemoglobin Concent 33 32-36 g/dL Red Cell Distribution Width 12.6 10.0-14.5 % Platelet Count 326 130-400 10^3/uL Mean Platelet Volume 10.5 9.0-12.2 fL Immature Granulocyte % (Auto) 1 % Neutrophils (%) (Auto) 80 H 42-75 % Lymphocytes (%) (Auto) 12 12-44 % Monocytes (%) (Auto) 7 0-12 % Eosinophils (%) (Auto) 0 0-10 % Basophils (%) (Auto) 0 0-10 % Neutrophils # (Auto) 11.0 H 1.8-7.8 10^3/uL Lymphocytes # (Auto) 1.7 1.0-4.0 10^3/uL Monocytes # (Auto) 0.9 0.0-1.0 10^3/uL Eosinophils # (Auto) 0.1 0.0-0.3 10^3/uL Basophils # (Auto) 0.0 0.0-0.1 10^3/uL Immature Granulocyte # (Auto) 0.1 0.0-0.1 10^3/uL Prothrombin Time 14.2 12.2-14.7 SEC INR Comment 1.1 0.8-1.4 Activated Partial Thromboplast Time 30 24-35 SEC Sodium Level 136 135-145 MMOL/L Potassium Level 3.7 3.6-5.0 MMOL/L Chloride Level 104 98-107 MMOL/L Carbon Dioxide Level 20 L 21-32 MMOL/L Anion Gap 12 5-14 MMOL/L Blood Urea Nitrogen 11 7-18 MG/DL Creatinine 0.82 0.60-1.30 MG/DL Estimat Glomerular Filtration Rate > 60 BUN/Creatinine Ratio 13 Glucose Level 255 H 70-105 MG/DL Lactic Acid Level 2.18 *H 0.50-2.00 MMOL/L Calcium Level 8.9 8.5-10.1 MG/DL Corrected Calcium 9.1 8.5-10.1 MG/DL Total Bilirubin 0.4 0.1-1.0 MG/DL Aspartate Amino Transf (AST/SGOT) 13 5-34 U/L Alanine Aminotransferase (ALT/SGPT) 23 0-55 U/L Alkaline Phosphatase 67 40-136 U/L Lactate Dehydrogenase 188 125-220 U/L C-Reactive Protein High Sensitivity 17.16 H 0.00-0.50 MG/DL Total Protein 7.6 6.4-8.2 GM/DL Albumin 3.8 3.2-4.5 GM/DL Procalcitonin 0.08 <0.10 NG/ML Serum Test, Qualitative NEGATIVE NEGATIVE Coronavirus 2019 ([facility]) Negative Negative Micro Results Microbiology 06/25/20 Influenza Types A,B Antigen (CHRISTIE) - Final, Complete My Orders Orders - MEG SILVA MD Cbc With Automated Diff (06/25/20 21:46) Comprehensive Metabolic Panel (06/25/20 21:46) Blood Culture (06/25/20 21:46) Sputum Culture (06/25/20 21:46) Urinalysis (06/25/20 21:46) Urine Culture (06/25/20 21:46) Protime With Inr (06/25/20 21:46) Partial Thromboplastin Time (06/25/20 21:46) Chest 1 View, Ap/Pa Only (06/25/20 21:46) Ed Iv/Invasive Line Start (06/25/20 21:46) Ed Iv/Invasive Line Start (06/25/20 21:46) Vital Signs Adult Sepsis Patie Q15M (06/25/20 21:46) O2 (06/25/20 21:46) Remove Rings In Anticipation O (06/25/20 21:46) Lactic Acid Analyzer (06/25/20 21:46) Influenza A And B Antigens (06/25/20 21:46) Procalcitonin (Pct) (06/25/20 21:46) Hs C Reactive Protein (06/25/20 21:46) LDH (06/25/20 21:46) Hcg,Qualitative Serum (06/25/20 21:46) Covid 19 Inhouse Test (06/25/20 21:46) Lactated Ringers (Lr 1000 Ml Iv Solution (06/25/20 22:03) Ketorolac Injection (Toradol Injection) (06/25/20 22:09) Ceftriaxone For Iv Use (Rocephin For I (06/25/20 22:30) Water (Sterile) For Injection (Sterile W (06/25/20 22:25) Ceftriaxone For Im Use (Rocephin For Im (06/25/20 22:25) Vancomycin Injection (Vancomycin Injecti (06/25/20 22:28) Wound Culture (06/25/20 22:35) Ns Iv 1000 Ml (Sodium Chloride 0.9%) (06/25/20 23:15) Hemoglobin A1c (06/25/20 23:09) Medications Given in ED Current Medications Medications Dose Ordered Sig/Milly Route Start Time Stop Time Status Last Admin Dose Admin Ceftriaxone Sodium 1000 mg/ Sterile Water 10 ml @ 200 mls/hr ONCE ONCE IV 06/25/20 22:30 06/25/20 22:32 DC 06/25/20 22:30 200 MLS/HR Ketorolac Tromethamine 30 mg STK-MED ONCE .ROUTE 06/25/20 22:09 06/25/20 22:12 DC 06/25/20 22:13 30 MG Lactated Ringer's 1,000 ml @ ud STK-MED ONCE IV 06/25/20 22:03 06/25/20 22:06 DC 06/25/20 22:08 0 MLS/HR Sodium Chloride 1,000 ml @ 0 mls/hr Q0M ONCE IV 06/25/20 23:15 06/25/20 23:16 DC 06/25/20 23:10 0 MLS/HR Vancomycin HCl 2000 mg/Sodium Chloride 500 ml @ 260 mls/hr 2228 ONCE IV 06/25/20 22:28 06/26/20 00:23 DC 06/25/20 23:05 260 MLS/HR Vital Signs/I&O 06/25/20 06/25/20 06/25/20 06/25/20 21:37 22:13 23:31 23:57 Temp 38.1 38.1 37.2 37.8 Pulse 96 122 118 Resp 22 22 20 B/P (MAP) 130/80 (97) 103/67 127/67 Pulse Ox 98 96 96 O2 Delivery Room Air Room Air Room Air 06/26/20 06/26/20 00:19 01:08 Temp 37.3 Pulse 111 Resp 20 B/P (MAP) 101/62 (75) Pulse Ox 96 94 O2 Delivery Room Air Room Air 06/26/20 00:00 Intake Total 1010 ml Balance 1010 ml Capillary Refill : Less Than 3 Seconds Blood Pressure Mean: 97 Progress Note #1: Time: 22:45 Progress Note Patient was seen and examined. Tachycardia and fevers likely related to sepsis from cellulitis. Bedside ultrasound revealed a very small fluid collection toward the center of the affected area. This was a centimeter or less in diameter. Patient was treated with Toradol. Incision and drainage was attempted but only blood was yielded. The opening was cultured. Antibiotic therapy is being initiated with Rocephin and vancomycin. Rapid influenza and Covid screens are pending. Chest x-ray was unremarkable. Progress Note #2: Time: 23:18 Progress Note Rapid Covid and influenza screens were negative. Patient was no longer considered a PUI because of the negative rapid test and a lab profile that did not fit Covid. Sepsis is likely due to the cellulitis of the right thigh. Initial antibiotic therapy was started with Rocephin and vancomycin. It was then acknowledged that her blood sugar was 255 and she needs further evaluation for diabetes. Per severe sepsis order set Zosyn and vancomycin were selected for further treatment due to the possibility of diabetes. A1c was added to the work-up to evaluate for possible diabetes. Pain was treated with Toradol. Tylenol have been received at home. She received 2 L of IV boluses in the ER in addition to a 500 mL bag given with the vancomycin. This more than satisfies 30 mL/kg of ideal body weight which is only 1560 mL. Diagnostic Imaging Diagonstic Imaging: Xray Plain Films/CT/US/NM/MRI: chest Comments Chest x-ray viewed by me and report not yet available. No acute abnormalities appreciated. Departure Communication (Admissions) Time/Spoke to Admitting Phy: 23:00 Dr. Abdullahi Impression Primary Impression: Severe sepsis Additional Impressions: Cellulitis of right thigh Hyperglycemia Disposition: ADMITTED INPATIENT Condition: Improved Admissions Decision to Admit Reason: Admit from ER (General) Decision to Admit/Date: Jun 25, 2020 Time/Decision to Admit Time: 21:45 Departure-Patient Inst. Referrals: NO,LOCAL PHYSICIAN (PCP/Family) Primary Care Physician MEG SILVA MD Jun 25, 2020 22:45
[2020-06-25] MEDS ORDERED: NS IV 1000 ML 1,000 ML IV ONE (23:15)
--- NOTE | 2020-06-25 23:56 | NUR ---
"ZIA BRAXTON admitted to room 420-1, with an admitting diagnosis of SEVERE SEPSIS|CELLULITIS RIGHT THIGH, on 06/25/20 from ED via STRETCHER, accompanied by STAFF.ZIA BRAXTON introduced to surroundings, call light, bed controls, phone, TV, temperature control, lights, meal times, smoking policy, visitor policy, side rail policy, bathrooms and showers. Patient Rights given to patient in the handbook.ZIA BRAXTON verbalizes understanding that [facility] is not responsible for the loss or damage to any personal effects or valuables that are kept in the patients posession during their hospitalization."
[2020-06-25 23:57] VITALS: BP 127/67
[2020-06-26] VITALS (8 sets, daily range): BP systolic 101–126; BP diastolic 62–81
[2020-06-26] MEDS ORDERED: PIPERACILLIN/TAZO 4.5 GM/NS 100 ML IV ONE ×2 (00:30)
[2020-06-26] MEDS ORDERED: fentaNYL INJECTION 100 MCG/2 ML AMP IV PRN (00:30)
[2020-06-26 00:45] LABS: BILIRUBIN,URINE NEGATIVE (NEGATIVE); CLARITY,URINE SL CLOUDY; COLOR,URINE YELLOW; GLUCOSE, URINE (UA) 1+ (NEGATIVE); KETONES,URINE TRACE (NEGATIVE); LEUKOCYTE ESTERASE ,URINE NEGATIVE (NEGATIVE); NITRITE,URINE NEGATIVE (NEGATIVE); PROTEIN,URINE NEGATIVE (NEGATIVE)
[2020-06-26 00:56] LABS: BACTERIA,URINE FEW /HPF
[2020-06-26] MEDS: LACTATED RINGERS 1,000 ML IV SCH ×3 (01:10→14:25)
[2020-06-26] MEDS ORDERED: NS (IVPB) 100 ML ONE ×2 (01:14→06:10)
[2020-06-26] MEDS ORDERED: PIPERACILLIN/TAZO 4.5 GM VIAL (ZOSYN) IV ONE ×2 (01:14→06:09)
[2020-06-26 02:08] LABS: BASOPHILS % (AUTO) 0 % (0-10); EOSINOPHILS % (AUTO) 0 % (0-10); HEMATOCRIT 36 % (35-52); HEMOGLOBIN 11.7 g/dL (11.5-16.0); LYMPHOCYTES # (AUTO) 1.3 10^3/uL (1.0-4.0); LYMPHOCYTES % (AUTO) 10 % (12-44); MEAN CORPUSCULAR HEMOGLOBIN 31 pg (25-34); MEAN CORPUSCULAR HGB CONC 32 g/dL (32-36); MEAN CORPUSCULAR VOLUME 95 fL (80-99); MEAN PLATELET VOLUME 10.8 fL (9.0-12.2); MONOCYTES # (AUTO) 0.7 10^3/uL (0.0-1.0); MONOCYTES % (AUTO) 5 % (0-12); NEUTROPHILS # (AUTO) 11.6 10^3/uL (1.8-7.8); NEUTROPHILS % (AUTO) 84 % (42-75); PLATELET COUNT 290 10^3/uL (130-400); WHITE BLOOD COUNT 13.8 10^3/uL (4.3-11.0)
[2020-06-26 02:30] LABS: ALANINE AMINOTRANSFERASE 17 U/L (0-55); ALBUMIN 3.2 GM/DL (3.2-4.5); ALKALINE PHOSPHATASE 56 U/L (40-136); BILIRUBIN,TOTAL 0.3 MG/DL (0.1-1.0); BUN/CREATININE RATIO 15; CALCIUM 7.9 MG/DL (8.5-10.1); CARBON DIOXIDE 20 MMOL/L (21-32); CHLORIDE 109 MMOL/L (98-107); CREATININE SERUM 0.74 MG/DL (0.60-1.30); GFR ESTIMATED > 60; GLUCOSE 255 MG/DL (70-105); POTASSIUM 3.5 MMOL/L (3.6-5.0); SODIUM 138 MMOL/L (135-145); TOTAL PROTEIN 6.4 GM/DL (6.4-8.2)
[2020-06-26] MEDS: IBUPROFEN 600 MG (MOTRIN) TAB PO PRN ×2 (04:10→10:06)
[2020-06-26] MEDS ORDERED: ACETAMINOPHEN 325 MG TABLET PO PRN (04:15)
[2020-06-26] MEDS ORDERED: MELATONIN 3 MG TABLET PO PRN (04:15)
[2020-06-26] MEDS ORDERED: ONDANSETRON 4 MG/2 ML (SDV) Z0FRAN IV PRN (04:15)
[2020-06-26] MEDS ORDERED: ONDANSETRON 4 MG (ZOFRAN) ORAL DISSOLVE TAB PO PRN (04:15)
[2020-06-26] MEDS ORDERED: diphenhydrAMINE 25 MG TAB (BENADRYL) PO PRN (04:15)
[2020-06-26] MEDS ORDERED: ANTACID SUSP 30 ML UDC (MYLANTA) PO PRN (04:15)
[2020-06-26] MEDS ORDERED: polyethylene glycoL POWDER 17 GM (MIRALAX) PACK PO PRN (04:15)
[2020-06-26] MEDS: PIPERACILLIN/TAZO 4.5 GM/NS 100 ML IV SCH ×6 (06:38→21:57)
[2020-06-26] MEDS: inSUlin ASPART (NovoLOG) 1 UNIT/0.01 ML (CHARGE PER UNIT) SC SCH ×4 (06:38→20:55)
--- NOTE | 2020-06-26 07:30 | Diagnostic Imaging Report ---
EXAM: CHEST 1 VIEW, AP/PA ONLY INDICATION: Sepsis. COMPARISON: None. FINDINGS: Normal heart size and pulmonary vascularity. No dense consolidation, pleural effusion or pneumothorax. No acute osseous findings. IMPRESSION: No acute cardiopulmonary findings. Dictated by: Dictated on workstation # [id number]
[2020-06-26] MEDS: DOCUSATE SODIUM 100 MG (COLACE) CAP PO SCH ×2 (09:59→20:56)
[2020-06-26] MEDS: SENNOSIDES 8.6 MG (SENOKOT) TAB PO SCH ×2 (10:00→20:56)
[2020-06-26] MEDS: VANCOMYCIN INJECTION 1,000 MG in NS (IVPB) 250 ML IV SCH ×2 (10:01→16:00)
[2020-06-26] MEDS: ENOXAPARIN 60 MG/0.6 ML (LOVENOX) SYR SC SCH ×2 (10:01→20:56)
--- NOTE | 2020-06-26 13:36 | History & Physical-Hospitalist ---
History of Present Illness HPI/Chief Complaint Janelle Briseno is a 35 year old female with PMH PCOS who presented with right thigh pain. She has been having fevers. She has swelling and redness of her inner right thigh. She has not had any drainage. She has no history of MRSA. She has no history of diabetes. She does not take any medications regularly. She took Metformin in the past for PCOS. Source: patient Exam Limitations: no limitations Date Seen 06/26/20 Time Seen by a Provider: 07:30 Attending Physician Ce Mai MD PCP No,Local Physician Referring Physician Date of Admission Jun 25, 2020 at 23:17 Home Medications & Allergies Home Medications Reviewed patient Home Medication Reconciliation performed by pharmacy medication reconciliations heat transfer technician and/or nursing. Patients Allergies have been reviewed. Allergies Allergies Coded Allergies No Known Drug Allergies (Unverified09/12/11) Past Qvuadqc-Awbesk-Wntrne Hx Past Med/Social Hx: Reviewed Nursing Past Med/Soc Hx Patient Social History Alcohol Use: Rarely Uses Recreational Drug Use: No Smoking Status: Current Everyday Smoker Type Used: Cigarettes 2nd Hand Smoke Exposure: No Recent Foreign Travel: No Contact w/other who traveled: No Recent Hopitalizations: No Recent Infectious Disease Expo: No Immunizations Up To Date Tetanus Booster (TDap): Unknown Pediatric: Yes Seasonal Allergies Seasonal Allergies: No Past Medical History : No Reproductive: Yes (INFERTILITY) Female Reproductive Disorders: Menstrual Problems, Polycystic Ovarian Dis History of Blood Disorders: No Review of Systems Constitutional: fever EENTM: no symptoms reported Respiratory: no symptoms reported Cardiovascular: no symptoms reported Gastrointestinal: no symptoms reported Genitourinary: no symptoms reported Musculoskeletal: no symptoms reported Skin: rash Psychiatric/Neurological: No Symptoms Reported Physical Exam Physical Exam Vital Signs Vital Signs - First Documented 06/25/20 21:37 Temp 38.1 Pulse 96 Resp 22 B/P (MAP) 130/80 (97) Pulse Ox 98 O2 Delivery Room Air Capillary Refill : Less Than 3 Seconds Height, Weight, BMI Height: 5'2.00" Weight: 250lbs. oz. 113.790643gy; 51.18 BMI Method:Stated General Appearance: No Apparent Distress, Obese HEENT: PERRL/EOMI, Pharynx Normal Neck: Normal Inspection, Supple Respiratory: Lungs Clear, Normal Breath Sounds, No Respiratory Distress Cardiovascular: Regular Rate, Rhythm, No Edema, No Murmur, Normal Peripheral Pulses Gastrointestinal: Normal Bowel Sounds, Non Tender, Soft Extremity: No Pedal Edema, Inflammation, Swelling Neurologic/Psychiatric: Alert, Oriented x3, No Motor/Sensory Deficits, Normal Mood/Affect Skin: Warm/Dry, Rash (redness, swelling, induration of right inner thigh) Lymphatic: No Adenopathy Results Results/Procedures Labs Laboratory Tests 06/25/20 21:55 06/26/20 01:04 Patient resulted labs reviewed. Imaging: Reviewed Imaging Report Assessment/Plan Admission Diagnosis Severe sepsis due to cellulitis and abscess of right thigh Admission Status: Inpatient Order (span 2 midnights) Reason for Inpatient Admission: IV antibiotics and fluids Assessment and Plan Severe sepsis Cellulitis of right thigh Abscess of right thigh Lactic acidosis SIRS+ with fever and leukocytosis Lactic acid >2 I&D performed in ER, minimal output Culture pending Started on Vancomycin and Zosyn IV fluids Hyperglycemia Likely T2DM HgbA1C pending Sliding scale insulin PCOS Super obese BMI 51.2, clinically significant, no acute management needs DVT prophylaxis: Lovenox Diagnosis/Problems Diagnosis/Problems (1) Severe sepsis Status: Acute (2) Cellulitis of right thigh Status: Acute (3) Abscess of right thigh Status: Acute (4) Lactic acidosis Status: Acute (5) Hyperglycemia Status: Acute (6) PCOS (polycystic ovarian syndrome) Status: Chronic (7) Super obese Status: Chronic Clinical Quality Measures DVT/VTE Risk/Contraindication: Risk Factor Score Per Nursin RFS Level Per Nursing on Admit: 3=High CE MAI MD Jun 26, 2020 13:36
[2020-06-26] MEDS: ACETAMINOPHEN 500 MG TAB (TYLENOL) PO PRN (16:00)
[2020-06-26] MEDS: ONDANSETRON 4 MG/2 ML (SDV) Z0FRAN IV PRN (16:43)
--- NOTE | 2020-06-26 18:00 | NUR ---
PATIENT C/O HAVING HEADACHE UNRELIEVED BY TYLENOL OR FENTANYL, OXY GIVEN 5MG, C/O CHILLING, TEMP 101, C/O NAUSEA , ZOFRAN GIVEN, C/O CHEST HEAVINESS, BP 125/84, PULSE 118,DR MAI NOTIFIED AND ORDER GIVEN TO CONSULT DR ALTAMIRANO IN AM,
[2020-06-27] VITALS (10 sets, daily range): BP systolic 91–127; BP diastolic 55–74
[2020-06-27] MEDS: ONDANSETRON 4 MG/2 ML (SDV) Z0FRAN IV PRN (00:36)
[2020-06-27] MEDS: VANCOMYCIN INJECTION 1,000 MG in NS (IVPB) 250 ML IV SCH ×3 (00:37→17:09)
[2020-06-27] MEDS: ACET/BUTAL/CAFF (FIORICET) TAB PO PRN ×3 (01:10→15:16)
[2020-06-27] MEDS: LACTATED RINGERS 1,000 ML IV SCH ×3 (02:31→20:28)
[2020-06-27 05:54] LABS: BASOPHILS % (AUTO) 0 % (0-10); EOSINOPHILS % (AUTO) 0 % (0-10); HEMATOCRIT 33 % (35-52); HEMOGLOBIN 10.9 g/dL (11.5-16.0); LYMPHOCYTES # (AUTO) 1.5 10^3/uL (1.0-4.0); LYMPHOCYTES % (AUTO) 10 % (12-44); MEAN CORPUSCULAR HEMOGLOBIN 31 pg (25-34); MEAN CORPUSCULAR HGB CONC 33 g/dL (32-36); MEAN CORPUSCULAR VOLUME 96 fL (80-99); MEAN PLATELET VOLUME 10.6 fL (9.0-12.2); MONOCYTES # (AUTO) 0.7 10^3/uL (0.0-1.0); MONOCYTES % (AUTO) 5 % (0-12); NEUTROPHILS # (AUTO) 13.1 10^3/uL (1.8-7.8); NEUTROPHILS % (AUTO) 85 % (42-75); PLATELET COUNT 262 10^3/uL (130-400); WHITE BLOOD COUNT 15.4 10^3/uL (4.3-11.0)
[2020-06-27 06:10] LABS: ALBUMIN 3.1 GM/DL (3.2-4.5); CHLORIDE 104 MMOL/L (98-107); POTASSIUM 3.6 MMOL/L (3.6-5.0); SODIUM 135 MMOL/L (135-145)
[2020-06-27 06:11] LABS: CALCIUM 8.3 MG/DL (8.5-10.1)
[2020-06-27 06:12] LABS: GLUCOSE 193 MG/DL (70-105); TOTAL PROTEIN 6.4 GM/DL (6.4-8.2)
[2020-06-27 06:13] LABS: CARBON DIOXIDE 20 MMOL/L (21-32)
[2020-06-27 06:14] LABS: BILIRUBIN,TOTAL 0.6 MG/DL (0.1-1.0)
[2020-06-27 06:16] LABS: ALKALINE PHOSPHATASE 55 U/L (40-136); CREATININE SERUM 0.69 MG/DL (0.60-1.30); GFR ESTIMATED > 60
[2020-06-27 06:17] LABS: BUN/CREATININE RATIO 7
[2020-06-27 06:19] LABS: ALANINE AMINOTRANSFERASE 19 U/L (0-55)
[2020-06-27] MEDS: inSUlin ASPART (NovoLOG) 1 UNIT/0.01 ML (CHARGE PER UNIT) SC SCH ×4 (06:24→20:28)
[2020-06-27] MEDS: PIPERACILLIN/TAZO 4.5 GM/NS 100 ML IV SCH ×6 (06:24→21:54)
[2020-06-27 06:55] LABS: BAND NEUTROPHILS 6 %; LYMPHOCYTES % (MANUAL) 7 %; MONOCYTES % (MANUAL) 5 %; NEUTROPHILS % (MANUAL) 82 %; RBC MORPH NORMAL
[2020-06-27] MEDS: DOCUSATE SODIUM 100 MG (COLACE) CAP PO SCH ×2 (08:36→20:28)
[2020-06-27] MEDS: SENNOSIDES 8.6 MG (SENOKOT) TAB PO SCH ×2 (08:37→20:28)
[2020-06-27] MEDS: ENOXAPARIN 60 MG/0.6 ML (LOVENOX) SYR SC SCH ×2 (09:57→20:28)
--- NOTE | 2020-06-27 09:59 | NUR ---
DR ALTAMIRANO HERE, PATIENT GOING TO SURGERY FOR INCISION AND DRAINAGE RIGHT THIGH ABSCESS, LOVENOX HELD
--- NOTE | 2020-06-27 10:39 | Consultation - Surgery ---
History of Present Illness History of Present Illness Patient Consulted On(ghislaine/time) 06/27/20 10:33 Time Seen by Provider: 09:19 History of Present Illness Surgery asked to consult regarding right thigh abscess. HPI per ED: This 35-year-old woman presents to the emergency room with complaints of pain, swelling, and induration of the right upper inner thigh with associated fever. Symptoms started on June 21. She also reports a mild dry cough. She noticed some clear drainage coming from the center of the affected area but no purulent drainage. She denies any history of MRSA. She has no primary care provider. When I spoke to the pt this morning she stated the pain was about 4 out of 10; over the entire upper thigh. She thinks it has gotten slightly worse and the redness is outside the line they cat yesterday. She states she has had "boils before", not sure if they have ever been this bad; did have "cyst removed from my chest because is was right in bra line". She states she noticed the redness getting worse over the past 2 days and that's why she finally came in. Describes pain as dull and achey; does not radiate anywhere. Allergies and Home Medications Allergies Coded Allergies: No Known Drug Allergies (Unverified , 09/12/11) Patient Home Medication List Home Medication List Reviewed: Yes Past Bsgorgc-Elyvaj-Cxlrlg Hx Patient Social History Alcohol Use: Rarely Uses Recreational Drug Use: No Smoking Status: Current Everyday Smoker Type Used: Cigarettes 2nd Hand Smoke Exposure: No Recent Foreign Travel: No Contact w/Someone Who Travel: No Recent Infectious Disease Expo: No Recent Hopitalizations: No Immunizations Up To Date Tetanus Booster (TDap): Unknown PED Vaccines UTD: Yes Seasonal Allergies Seasonal Allergies: No Surgeries History of Surgeries: Yes (LAPAROSCOPY/HYSTEROSCOPY FOR INFERTILITY ISSUES) Respiratory History of Respiratory Disorde: No Cardiovascular History of Cardiac Disorders: No Neurological History of Neurological Disord: No Reproductive System : No Hx Reproductive Disorders: Yes (INFERTILITY) Female Reproductive Disorders: Menstrual Problems, Polycystic Ovarian Dis Genitourinary History of Genitourinary Disor: No Gastrointestinal History of Gastrointestinal Di: No Musculoskeletal History of Musculoskeletal Dis: No Endocrine History of Endocrine Disorders: Yes (MORBID OBESITY) HEENT History of HEENT Disorders: No Cancer History of Cancer: No Psychosocial History of Psychiatric Problem: No Integumentary History of Skin or Integumenta: Yes Blood Transfusions History of Blood Disorders: No Family Medical History Significant Family History: Heart Disease (grandmother had [place]), Diabetes (grand mother), Other Conditions/Hx (State her mother has no medical problems, Father is addicted to drugs and doesn't know much about him) Review of Systems-General Constitutional: chills; No diaphoresis; fever; No malaise, No weakness EENTM: No blurred vision, No double vision, No mouth pain, No mouth swelling, No epistaxis Respiratory: No cough, No dyspnea on exertion, No hemoptysis, No phlegm, No short of breath Cardiovascular: No chest pain, No edema, No palpitations Gastrointestinal: No abdominal pain, No jaundice, No nausea, No vomiting Genitourinary: No dysuria, No frequency, No hematuria Musculoskeletal: No joint pain, No joint swelling, No muscle pain, No muscle stiffness, No muscle cramps Skin: see HPI, other (hx of similar, never this bad) Psychiatric/Neurological: Denies Anxiety, Denies Depressed, Denies Seizure, Denies Tremors Other pt denies any hx of abnormal bleeding or bruising Physical Exam-General Problems Physical Exam Vital Signs Vital Signs - First Documented 06/25/20 21:37 Temp 38.1 Pulse 96 Resp 22 B/P (MAP) 130/80 (97) Pulse Ox 98 O2 Delivery Room Air Capillary Refill : Greater Than 3 Seconds General Appearance: mild distress, obese (morbidly) Eyes: Bilateral Eye PERRL, Bilateral Eye EOMI HEENT: pharynx normal; No scleral icterus (R), No scleral icterus (L) Neck: non-tender, full range of motion, supple, normal inspection Respiratory: lungs clear, normal breath sounds, no respiratory distress, no accessory muscle use Cardiovascular: regular rate, rhythm, no murmur Gastrointestinal: non tender, soft, no organomegaly, no pulsatile mass Rectal: deferred Extremities: no pedal edema, no calf tenderness, normal capillary refill, other (right upper inner thigh, firm area measuring appx 10cm, erythema measure about 60 square cm) Neurologic/Psychiatric: engineering coordinator II-XII nml as tested, no motor/sensory deficits, alert, normal mood/affect, oriented x 3 Skin: normal color, warm/dry Lymphatic: no adenopathy (neck, axilla or left groin. ?? LN palpated right groin) Data Review Labs Laboratory Tests 06/26/20 11:35: Glucometer 180H 06/26/20 15:53: Glucometer 203H 06/26/20 20:19: Glucometer 202H 06/27/20 05:33: White Blood Count 15.4H, Red Blood Count 3.48L, Hemoglobin 10.9L, Hematocrit 33L , Mean Corpuscular Volume 96, Mean Corpuscular Hemoglobin 31, Mean Corpuscular Hemoglobin Concent 33, Red Cell Distribution Width 12.6, Platelet Count 262, Mean Platelet Volume 10.6, Immature Granulocyte % (Auto) 1, Neutrophils (%) (Auto) 85H, Lymphocytes (%) (Auto) 10L, Monocytes (%) (Auto) 5, Eosinophils (%) (Auto) 0, Basophils (%) (Auto) 0, Neutrophils # (Auto) 13.1H, Lymphocytes # (Auto) 1.5, Monocytes # (Auto) 0.7, Eosinophils # (Auto) 0.0, Basophils # (Auto) 0.0, Immature Granulocyte # (Auto) 0.1, Neutrophils % (Manual) 82, Lymphocytes % (Manual) 7, Monocytes % (Manual) 5, Band Neutrophils 6, Blood Morphology Comment NORMAL, Sodium Level 135, Potassium Level 3.6, Chloride Level 104, Carbon Dioxid e Level 20L, Anion Gap 11, Blood Urea Nitrogen 5L, Creatinine 0.69, Estimat Glomerular Filtration Rate > 60, BUN/Creatinine Ratio 7, Glucose Level 193H, Calcium Level 8.3L, Corrected Calcium 9.0, Total Bilirubin 0.6, Aspartate Amino Transf (AST/SGOT) 12, Alanine Aminotransferase (ALT/SGPT) 19, Alkaline Phospha tase 55, Total Protein 6.4, Albumin 3.1L Microbiology 06/25/20 Gram Stain, Resulted Pending 06/25/20 Wound Culture - Preliminary, Resulted No growth 06/25/20 Blood Culture - Preliminary, Resulted No growth 06/25/20 Influenza Types A,B Antigen (CHRISTIE) - Final, Complete Assessment/Plan Assessment/Plan Assessment/Plan Right upper thigh Abscess Morbid Obesity I discussed with pt her options; 1) continue ABX, US tomorrow and could continue to monitor or surgery if worsens/US shows large abscess or 2) go to OR today for I&D with packing and drainage. We did talk about the fact that sometimes an I&D is done; no large abscess is found, but it stills seems to get better faster. She is on ABX and the erythema still spread; she wants to go to surgery and does not want to wait. Plan to go to OR to do I&D of right thigh. All questions answered to her satisfaction. Clinical Quality Measures DVT/VTE Risk/Contraindication: Risk Factor Score Per Nursin RFS Level Per Nursing on Admit: 3=High URBAN ALTAMIRANO DO Jun 27, 2020 10:39
[2020-06-27] MEDS ORDERED: PROPOFOL INJECTION 50 ML IV ONE (10:42)
[2020-06-27] MEDS ORDERED: MIDAZOLAM 2 MG/2 ML (VERSED) VIAL ONE (10:43)
[2020-06-27] MEDS ORDERED: fentaNYL INJECTION 100 MCG/2 ML AMP ONE (10:43)
--- NOTE | 2020-06-27 11:22 | NUR ---
TO SURGERY PER BED, VERBALIZED UNDERSTANDING Addendum: 06/27/20 at 1813 by ELIZABETH WATERMAN RN ABOVE ENTRY SHOULD BE [id number]
[2020-06-27] MEDS ORDERED: LACTATED RINGERS 1,000 ML IV PRN (11:30)
--- NOTE | 2020-06-27 11:50 | NUR ---
RETURNED FROM SURGERY, ALERT AND AWAKE, DRESSING DRY AND INTACT TO RIGHT THIGH, NO C/O PAIN REPORT FROM [facility]IA [place]
--- NOTE | 2020-06-27 12:02 | Progress Note-Post Operative ---
Post-Operative Progess Note Surgeon (s)/Dive Master (s) Surgeon URBAN ALTAMIRANO DO Dive Master: none Pre-Operative Diagnosis Right thigh Abscess Post-Operative Diagnosis same Procedure & Operative Findings Date of Procedure 06/27/20 Procedure Performed/Findings I&D with packing Anesthesia Type IV sedation by MANAGER TRADING Estimated Blood Loss Estimated blood loss (mL): less than 10ml Specimens/Packing Specimens Removed abscess culture Packing: right leg marked and agreed on at preoperative time out URBAN ALTAMIRANO DO Jun 27, 2020 12:02
[2020-06-27] MEDS: ACETAMINOPHEN 500 MG TAB (TYLENOL) PO PRN ×2 (14:36→20:29)
--- NOTE | 2020-06-27 15:34 | Progress Note - Hospitalist ---
Subjective HPI/CC On Admission Date Seen by Provider: Jun 27, 2020 Time Seen by Provider: 10:20 Janelle Briseno is a 35 year old female with PMH PCOS who presented with right thigh pain. She has been having fevers. She has swelling and redness of her inner right thigh. She has not had any drainage. She has no history of MRSA. She has no history of diabetes. She does not take any medications regularly. She took Metformin in the past for PCOS. Subjective/Events-last exam She has continued to have fevers. Her cellulitis is worsening. She would prefer to have a incision and drainage done today. Focused Exam Lactate Level 06/25/20 01:04: Lactic Acid Level 1.28 06/25/20 21:55: Lactic Acid Level 2.18*H Time of Focused Exam: 23:00 Objective Exam Vital Signs Vital Signs Date Time Temp Pulse Resp B/P (MAP) Pulse Ox O2 Delivery O2 Flow Rate FiO2 06/27/20 12:00 37.2 82 16 91/59 (70) 94 Room Air 06/27/20 11:20 6 Capillary Refill : Greater Than 3 Seconds General Appearance: No Apparent Distress, Obese Respiratory: Lungs Clear, Normal Breath Sounds, No Respiratory Distress Cardiovascular: No Murmur, Tachycardia Gastrointestinal: Normal Bowel Sounds, Non Tender, Soft Extremity: Inflammation, Swelling Neurologic/Psychiatric: Alert, Oriented x3, No Motor/Sensory Deficits Skin: Warm/Dry, Other (right inner thigh abscess with surrounding cellulitis worsening) Results/Procedures Lab Laboratory Tests 06/27/20 05:33 Patient resulted labs reviewed. Imaging: Reviewed Imaging Report Assessment/Plan Assessment and Plan Assess & Plan/Chief Complaint Severe sepsis Cellulitis of right thigh Abscess of right thigh Surgery consulted, appreciate assistance Planning for I&D today Continue Vancomycin and Zosyn Await culture results Hyperglycemia Likely T2DM HgbA1C pending Sliding scale insulin PCOS Super obese BMI 51.2, clinically significant, no acute management needs DVT prophylaxis: Lovenox Diagnosis/Problems Diagnosis/Problems (1) Severe sepsis Status: Acute (2) Cellulitis of right thigh Status: Acute (3) Abscess of right thigh Status: Acute (4) Lactic acidosis Status: Acute (5) Hyperglycemia Status: Acute (6) PCOS (polycystic ovarian syndrome) Status: Chronic (7) Super obese Status: Chronic Clinical Quality Measures DVT/VTE Risk/Contraindication: Risk Factor Score Per Nursin RFS Level Per Nursing on Admit: 3=High PERLA MAI MD Jun 27, 2020 15:34
--- NOTE | 2020-06-27 20:10 | OPERATIVE REPORT ---
DATE OF SERVICE: PREOPERATIVE DIAGNOSIS: Right thigh abscess. POSTOPERATIVE DIAGNOSIS: Right thigh abscess. PROCEDURE PERFORMED: Incision and drainage with packing, 8.1 cm incision. SURGEON: Dioni Elmore DO WATCH AND CLOCK REPAIR CLERK: None. ANESTHESIA: IV sedation by the MANAGER BUSINESS BANKING. SPECIMEN: Abscess culture. BLOOD LOSS: Less than 10 mL. The right leg was marked and agreed upon at timeout. INDICATION FOR PROCEDURE: The patient had a right upper inner thigh abscess that was getting worse. FINDINGS: The patient had abscess that was deep, a lot of purulent fluid. Culture was obtained. PROCEDURE NOTE: After informed consent was obtained, the patient was brought to the operating room. She remained in her bed. Legs were frog legged and she was then sterilely prepped and draped in normal fashion. An incision was made with #10 blade right above the firm area on her right upper thigh. This had been yoli previously, I made incision with #10 blade, carried down through the skin into subcutaneous tissue, it was approximately 8.1 cm long. Actually, it got down pretty deep with down 5.5 cm, encountered some purulent fluid. Culture obtained and then started dissecting bluntly and dissected another 3-4 cm laterally and got out more loculation of purulent fluid. I then used a pulse chief operator synthesis to carefully flushed this out. Hemostasis was obtained along the skin edges and deeper, did not really see any necrotic tissue, so it did not look like a necrotizing fasciitis and at this point after copiously irrigating with approximately a liter and half of the suction chief operator synthesis, I then elected to pack with one-inch iodoform packing, packed this tightly, a fit in this spot and then area was cleaned and dried, dressing placed. The patient tolerated the procedure. Sponge, instrument and needle count correct at the end of the case. Job ID: [id number] DocumentID: [id number] Dictated Date: 06/27/2020 12:02:49 Medical Device Sales Date: 06/27/2020 20:10:31 Dictated By: DIONI ELMORE DO
[2020-06-28] VITALS: BP 117/58
[2020-06-28] MEDS: VANCOMYCIN INJECTION 1,000 MG in NS (IVPB) 250 ML IV SCH ×3 (00:03→18:57)
[2020-06-28] MEDS: ACETAMINOPHEN 500 MG TAB (TYLENOL) PO PRN (03:48)
[2020-06-28 03:58] VITALS: BP 120/58
[2020-06-28] MEDS: inSUlin ASPART (NovoLOG) 1 UNIT/0.01 ML (CHARGE PER UNIT) SC SCH ×4 (05:47→21:17)
[2020-06-28] MEDS: PIPERACILLIN/TAZO 4.5 GM/NS 100 ML IV SCH ×6 (05:47→21:17)
[2020-06-28 06:21] LABS: BASOPHILS % (AUTO) 0 % (0-10); EOSINOPHILS # (AUTO) 0.1 10^3/uL (0.0-0.3); EOSINOPHILS % (AUTO) 1 % (0-10); HEMATOCRIT 29 % (35-52); HEMOGLOBIN 9.3 g/dL (11.5-16.0); LYMPHOCYTES # (AUTO) 1.5 10^3/uL (1.0-4.0); LYMPHOCYTES % (AUTO) 14 % (12-44); MEAN CORPUSCULAR HEMOGLOBIN 31 pg (25-34); MEAN CORPUSCULAR HGB CONC 33 g/dL (32-36); MEAN CORPUSCULAR VOLUME 95 fL (80-99); MEAN PLATELET VOLUME 10.7 fL (9.0-12.2); MONOCYTES # (AUTO) 0.5 10^3/uL (0.0-1.0); MONOCYTES % (AUTO) 5 % (0-12); NEUTROPHILS # (AUTO) 8.7 10^3/uL (1.8-7.8); NEUTROPHILS % (AUTO) 80 % (42-75); PLATELET COUNT 281 10^3/uL (130-400); WHITE BLOOD COUNT 10.8 10^3/uL (4.3-11.0)
[2020-06-28 06:47] LABS: ALANINE AMINOTRANSFERASE 22 U/L (0-55); ALBUMIN 2.9 GM/DL (3.2-4.5); ALKALINE PHOSPHATASE 83 U/L (40-136); BILIRUBIN,TOTAL 0.4 MG/DL (0.1-1.0); BUN/CREATININE RATIO 9; CALCIUM 8.3 MG/DL (8.5-10.1); CARBON DIOXIDE 26 MMOL/L (21-32); CHLORIDE 106 MMOL/L (98-107); CREATININE SERUM 0.64 MG/DL (0.60-1.30); GFR ESTIMATED > 60; GLUCOSE 163 MG/DL (70-105); POTASSIUM 3.3 MMOL/L (3.6-5.0); SODIUM 138 MMOL/L (135-145); TOTAL PROTEIN 6.2 GM/DL (6.4-8.2)
[2020-06-28] MEDS: LACTATED RINGERS 1,000 ML IV SCH ×2 (07:00→14:17)
[2020-06-28] MEDS: DOCUSATE SODIUM 100 MG (COLACE) CAP PO SCH ×2 (08:02→21:16)
[2020-06-28] MEDS: SENNOSIDES 8.6 MG (SENOKOT) TAB PO SCH ×2 (08:02→21:17)
--- NOTE | 2020-06-28 08:13 | Progress Note - Surgery ---
LOKESH VANESSA MED STUDENT 06/28/20 0813: Subjective Date Seen by a Provider: Jun 28, 2020 Time Seen by a Provider: 06:50 Subjective/Events-last exam Pt was seen and examined. She was resting in bed in NAD. She complains of 3-4/10 pain to her R thigh that has improved since the I&D and with pain medication. She denies chest pain, abd pain, N/V, SOB. Review of Systems General: No Chills HEENT: Head Aches Pulmonary: No Dyspnea Cardiovascular: No: Chest Pain, Palpitations, Lt Headedness Gastrointestinal: No: Nausea, Vomiting, Abdominal Pain Genitourinary: No Dysuria Neurological: No: Numbness Focused Exam Lactate Level 06/25/20 21:55: Lactic Acid Level 2.18*H Time of Focused Exam: 23:00 Objective Exam Vital Signs Date Time Temp Pulse Resp B/P (MAP) Pulse Ox O2 Delivery O2 Flow Rate FiO2 06/28/20 03:58 37.7 90 18 120/58 (78) 96 Room Air 06/28/20 00:00 36.5 78 18 117/58 (77) 96 Room Air 06/27/20 20:24 88 18 109/61 (77) 98 Room Air 06/27/20 20:00 Room Air 06/27/20 16:00 37.0 91 18 120/74 (89) 94 Room Air 06/27/20 12:00 37.2 82 16 91/59 (70) 94 Room Air 06/27/20 11:50 Room Air 06/27/20 11:50 36.3 18 101/58 (72) 95 Room Air 06/27/20 11:40 18 98/57 (71) 95 Room Air 06/27/20 11:38 Room Air 06/27/20 11:31 Room Air 06/27/20 11:30 18 93/55 (68) 100 Room Air 06/27/20 11:20 OxyMask 6 06/27/20 11:20 36.2 16 95/56 (69) 98 OxyMask 6 I & O 06/28/20 07:00 Intake Total 1050 ml Balance 1050 ml Capillary Refill : Less Than 3 Seconds General Appearance: No Apparent Distress, Obese HEENT: PERRL/EOMI Neck: Full Range of Motion, Normal Inspection, Non Tender, Supple Respiratory: Chest Non Tender, Lungs Clear, Normal Breath Sounds, No Accessory Muscle Use, No Respiratory Distress Cardiovascular: Regular Rate, Rhythm, No Gallop, No JVD, No Murmur, Normal Peripheral Pulses Peripheral Pulses: 3+ Radial Pulses (L) Gastrointestinal: normal bowel sounds, non tender, soft Extremity: Inflammation (R medial thigh), Swelling (R medial thigh) Neurologic/Psychiatric: Alert, Oriented x3, No Motor/Sensory Deficits, Normal Mood/Affect Skin: Warm/Dry, Other (right inner thigh abscess with surrounding cellulitis worsening) Lymphatic: No Adenopathy Results Lab Laboratory Tests 06/27/20 16:07: Glucometer 193H 06/27/20 20:22: Glucometer 173H 06/28/20 05:14: Glucometer 145H 06/28/20 05:45: White Blood Count 10.8, Red Blood Count 2.99L, Hemoglobin 9.3L, Hematocrit 29L, Mean Corpuscular Volume 95, Mean Corpuscular Hemoglobin 31, Mean Corpuscular Hemoglobin Concent 33, Red Cell Distribution Width 12.4, Platelet Count 281, Mean Platelet Volume 10.7, Immature Granulocyte % (Auto) 1, Neutrophils (%) (Auto) 80H, Lymphocytes (%) (Auto) 14, Monocytes (%) (Auto) 5, Eosinophils (%) (Auto) 1, Basophils (%) (Auto) 0, Neutrophils # (Auto) 8.7H, Lymphocytes # (Auto) 1.5, Monocytes # (Auto) 0.5, Eosinophils # (Auto) 0.1, Basophils # (Auto) 0.0, Immature Granulocyte # (Auto) 0.1, Sodium Level 138, Potassium Level 3.3L, Chloride Level 106, Carbon Dioxide Level 26, Anion Gap 6, Blood Urea Nitrogen 6L , Creatinine 0.64, Estimat Glomerular Filtration Rate > 60, BUN/Creatinine Ratio 9, Glucose Level 163H, Calcium Level 8.3L, Corrected Calcium 9.2, Total Bilir ubin 0.4, Aspartate Amino Transf (AST/SGOT) 20, Alanine Aminotransferase (ALT/SGPT) 22, Alkaline Phosphatase 83, Total Protein 6.2L, Albumin 2.9L Microbiology 06/25/20 Gram Stain - Final, Resulted 06/25/20 Wound Culture - Preliminary, Resulted No growth 06/25/20 Blood Culture - Preliminary, Resulted No growth 06/25/20 Influenza Types A,B Antigen (CHRISTIE) - Final, Complete 06/25/20 Urine Culture - Final, Complete 3 or more isolates Assessment/Plan Assessment/Plan Assessment/Plan s/p R medial thigh abscess I&D - 06/27 R thigh cellulitis Morbid Obesity POD#1 s/p I&D of R thigh abscess; draining large amounts of serous drainage with some blood tinge, large area of cellulitis around the site that appears to be worsening. Pt is on Abx therapy Continue to monitor VS/labs, pain management, dressing changes daily and prn Clinical Quality Measures DVT/VTE Risk/Contraindication: Risk Factor Score Per Nursin RFS Level Per Nursing on Admit: 3=JHON Montague DO 06/28/202028: Subjective Subjective/Events-last exam Patient lying in bed. Patient right thigh beginning to feel better. The erythema seems to be regressing. Pain controlled. Denies any nausea vomiting fever sweats chills shortness of breath or chest pain at this time. WBC decrea sing Objective Exam General Appearance: No Apparent Distress, Obese HEENT: PERRL/EOMI, Normal ENT Inspection Neck: Normal Inspection, Supple Respiratory: Chest Non Tender, No Accessory Muscle Use, No Respiratory Distress Cardiovascular: Regular Rate, Rhythm, No JVD Gastrointestinal: non tender, soft, other (Right thigh open wound packed decreasing erythema) Extremity: Inflammation (R medial thigh), Swelling (R medial thigh) Neurologic/Psychiatric: Alert, Oriented x3, No Motor/Sensory Deficits, Normal Mood/Affect Skin: Warm/Dry, Other (right inner thigh open wound with surrounding cellulitis regressing slight surrounding induration) Lymphatic: No Adenopathy Assessment/Plan Assessment/Plan Assessment/Plan s/p R medial thigh abscess I&D - 06/27 R thigh cellulitis Morbid Obesity POD#1 s/p I&D of R thigh abscess; Dressing changes daily Continue antibiotics Pain control Supervisory-Addendum Brief Verification & Attestation Participated in pt care: history, MDM, physical Personally performed: exam, history, MDM, supervision of care Care discussed with: Medical Student Procedures: n/a Results interpretation: Verified all documentation Verification and Attestation of Medical Student E/M Service A medical student performed and documented this service in my presence. I reviewed and verified all information documented by the medical student and made modifications to such information, when appropriate. I personally performed the physical exam and medical decision making. Jhon Mcfadden, Jun 28, 2020,20:28 LOKESH VANESSA MED STUDENT Jun 28, 2020 08:13 JHON MCFADDEN DO Jun 28, 2020 20:29
[2020-06-28 08:49] VITALS: BP 105/55
[2020-06-28] MEDS ORDERED: IBUP-2473 PO (09:43)
--- NOTE | 2020-06-28 09:43 | NUR ---
I SPOKE WITH THE PATIENT TO COMPLETE THIS MED REC. PT IS ONLY TAKING IBUPROFEN RIGHT NOW.
[2020-06-28] MEDS: ENOXAPARIN 60 MG/0.6 ML (LOVENOX) SYR SC SCH ×2 (10:06→21:16)
--- NOTE | 2020-06-28 13:01 | Anesthesia-General Post-Op ---
General Patient Condition Mental Status/LOC: Same as Preop Cardiovascular: Satisfactory Nausea/Vomiting: Absent Respiratory: Satisfactory Pain: Controlled Complications: Absent Post Op Complications Complications None Follow Up Care/Instructions Patient Instructions None needed. Anesthesia/Patient Condition Patient Condition Patient is doing well, no complaints, stable vital signs, no apparent adverse anesthesia problems. No complications reported per nursing. KALPESH GRAY CRNA Jun 28, 2020 13:01
--- NOTE | 2020-06-28 13:56 | Progress Note - Hospitalist ---
Subjective HPI/CC On Admission Date Seen by Provider: Jun 28, 2020 Time Seen by Provider: 13:52 Janelle Briseno is a 35 year old female with PMH PCOS who presented with right thigh pain. She has been having fevers. She has swelling and redness of her inner right thigh. She has not had any drainage. She has no history of MRSA. She has no history of diabetes. She does not take any medications regularly. She took Metformin in the past for PCOS. Subjective/Events-last exam Pt reports doing better today. No complaints. Erythema much better today. Focused Exam Lactate Level 06/25/20 21:55: Lactic Acid Level 2.18*H Time of Focused Exam: 23:00 Objective Exam Vital Signs Vital Signs Date Time Temp Pulse Resp B/P (MAP) Pulse Ox O2 Delivery O2 Flow Rate FiO2 06/28/20 08:49 37.2 72 16 105/55 (72) 95 Room Air 06/27/20 11:20 6 Capillary Refill : Less Than 3 Seconds General Appearance: No Apparent Distress, Obese Respiratory: Lungs Clear, No Respiratory Distress Cardiovascular: Regular Rate, Rhythm, No Murmur Neurologic/Psychiatric: Alert, Oriented x3 Results/Procedures Lab Laboratory Tests 06/28/20 05:45 Patient resulted labs reviewed. Imaging: Reviewed Imaging Report Assessment/Plan Assessment and Plan Assess & Plan/Chief Complaint Severe sepsis Cellulitis of right thigh Abscess of right thigh Surgery consulted, appreciate assistance I&D POD #1 Continue Vancomycin and Zosyn Await culture results from OR Hyperglycemia NIDDMII- newly diagnosed HgbA1C 8.4 Sliding scale insulin PCOS Super obese BMI 51.2, clinically significant, no acute management needs DVT prophylaxis: Lovenox Clinical Quality Measures DVT/VTE Risk/Contraindication: Risk Factor Score Per Nursin RFS Level Per Nursing on Admit: 3=High TRINITY DELA CRUZ MD Jun 28, 2020 13:56
[2020-06-28] MEDS ORDERED: KCL 20 MEQ TAB (K-DUR) PO NR (14:00)
[2020-06-28] MEDS: ACET/BUTAL/CAFF (FIORICET) TAB PO PRN ×2 (15:00→21:32)
--- NOTE | 2020-06-28 15:05 | NUR ---
"RD ASSESSMENT PMHx: PCOS PT INTERACTION: Pt was awake and pleasant during nutrition assessment. Pt states current appetite is not good, and has been this way for about 1week. Note avg PO intake 64% x2d, per chart review. Pt states following a regular diet at home, and has no issues with chewing/swallowing food. Pt states some recent issues with nausea and vomiting. Note last BM was 06/28, and pt currently on bowel regimen of colace BID, and senna BID, per chart review. Pt states no recent wt changes. Note unable to determine recent wt hx, per chart review. Note presence of wound (R thigh), per chart review. ABNORMAL NUTRITION-RELATED LAB VALUES LOW: K 3.3; BUN 6; Ca 8.3; Pro 6.2; alb 2.9; HIGH: glu 163; Est. kcal needs: 2516-5262 kcal | 25-30 kcal/kg IBW, based on IBW of 50 kg (110#) Est. Pro needs: 60-70 g Pro | 1.2-1.4 g Pro/kg IBW PES STATEMENT: Inadequate oral intake (NI-2.1) related to loss of appetite, as evidenced by pt interview, and avg PO intake 60% x2d. Inadequate protein intake (NI-5.6.1) related to increased protein needs as evidenced by presence of wound (R thigh). INTERVENTION: Continue with current diet order of CHO 75g/m 0snack diet. Add Ensure HP (vary) to meals TID. Provides 160 kcal and 16 g Pro per serving, for perceived benefit to wound healing. Will continue to follow and reassess as pt needs, intake, and status change. Joao OCAMPO, MS RD LD [phone] cell"
[2020-06-28 16:00] VITALS: BP 122/65
[2020-06-28] MEDS ORDERED: guaiFENesin/DM (ROBITUSSIN DM) 10 ML UDC PO PRN (16:30)
[2020-06-29] MEDS: VANCOMYCIN INJECTION 1,000 MG in NS (IVPB) 250 ML IV SCH (00:03)
[2020-06-29 00:36] VITALS: BP 117/58
[2020-06-29] MEDS: LACTATED RINGERS 1,000 ML IV SCH ×2 (05:00→05:10)
[2020-06-29] MEDS: PIPERACILLIN/TAZO 4.5 GM/NS 100 ML IV SCH ×2 (05:10)
[2020-06-29] MEDS: inSUlin ASPART (NovoLOG) 1 UNIT/0.01 ML (CHARGE PER UNIT) SC SCH ×2 (05:56→11:30)
[2020-06-29 06:27] LABS: BASOPHILS % (AUTO) 0 % (0-10); EOSINOPHILS # (AUTO) 0.1 10^3/uL (0.0-0.3); EOSINOPHILS % (AUTO) 2 % (0-10); HEMATOCRIT 30 % (35-52); HEMOGLOBIN 9.9 g/dL (11.5-16.0); LYMPHOCYTES # (AUTO) 1.3 10^3/uL (1.0-4.0); LYMPHOCYTES % (AUTO) 17 % (12-44); MEAN CORPUSCULAR HEMOGLOBIN 31 pg (25-34); MEAN CORPUSCULAR HGB CONC 33 g/dL (32-36); MEAN CORPUSCULAR VOLUME 96 fL (80-99); MEAN PLATELET VOLUME 10.4 fL (9.0-12.2); MONOCYTES # (AUTO) 0.5 10^3/uL (0.0-1.0); MONOCYTES % (AUTO) 7 % (0-12); NEUTROPHILS # (AUTO) 5.6 10^3/uL (1.8-7.8); NEUTROPHILS % (AUTO) 74 % (42-75); PLATELET COUNT 295 10^3/uL (130-400); WHITE BLOOD COUNT 7.5 10^3/uL (4.3-11.0)
[2020-06-29 06:44] LABS: ALANINE AMINOTRANSFERASE 25 U/L (0-55); ALBUMIN 2.9 GM/DL (3.2-4.5); ALKALINE PHOSPHATASE 58 U/L (40-136); BILIRUBIN,TOTAL 0.3 MG/DL (0.1-1.0); BUN/CREATININE RATIO 8; CALCIUM 8.2 MG/DL (8.5-10.1); CARBON DIOXIDE 24 MMOL/L (21-32); CHLORIDE 106 MMOL/L (98-107); CREATININE SERUM 0.64 MG/DL (0.60-1.30); GFR ESTIMATED > 60; GLUCOSE 138 MG/DL (70-105); POTASSIUM 3.3 MMOL/L (3.6-5.0); SODIUM 137 MMOL/L (135-145); TOTAL PROTEIN 6.3 GM/DL (6.4-8.2)
--- NOTE | 2020-06-29 07:41 | Progress Note - Surgery ---
LOKESH VANESSA MED STUDENT 06/29/20 0741: Subjective Date Seen by a Provider: Jun 29, 2020 Time Seen by a Provider: 06:40 Subjective/Events-last exam Pt seen and examined. She was resting in bed, NAD. She says that her headache, chest pain, and abd pain have all resolved. Complains of 2/10 pain to R thigh. Denies N/V, SOB. Review of Systems General: No Chills HEENT: No Head Aches Pulmonary: No Dyspnea Cardiovascular: No: Chest Pain, Palpitations, Lt Headedness Gastrointestinal: No: Nausea, Vomiting, Abdominal Pain Genitourinary: No Dysuria Neurological: No: Numbness Focused Exam Time of Focused Exam: 23:00 Objective Exam Vital Signs Date Time Temp Pulse Resp B/P (MAP) Pulse Ox O2 Delivery O2 Flow Rate FiO2 06/29/20 00:36 36.3 74 20 117/58 (77) 95 Room Air 06/28/20 20:00 Room Air 06/28/20 16:00 36.9 72 20 122/65 (84) 96 Room Air 06/28/20 08:49 37.2 72 16 105/55 (72) 95 Room Air 06/28/20 08:00 95 Room Air I & O 06/29/20 07:00 Intake Total 1360 ml Balance 1360 ml Capillary Refill : Less Than 3 Seconds General Appearance: No Apparent Distress, Obese HEENT: PERRL/EOMI, Normal ENT Inspection Neck: Full Range of Motion, Normal Inspection, Non Tender, Supple Respiratory: Chest Non Tender, Lungs Clear, Normal Breath Sounds, No Accessory Muscle Use, No Respiratory Distress Cardiovascular: Regular Rate, Rhythm, No JVD Peripheral Pulses: 3+ Radial Pulses (L) Gastrointestinal: normal bowel sounds, non tender, soft Extremity: Inflammation (R medial thigh), Swelling (R medial thigh), Other (Right thigh open wound packed decreasing erythema) Neurologic/Psychiatric: Alert, Oriented x3, No Motor/Sensory Deficits, Normal Mood/Affect Skin: Warm/Dry, Other (right inner thigh open wound with surrounding cellulitis regressing slight surrounding induration) Lymphatic: No Adenopathy Results Lab Laboratory Tests 06/28/20 11:38: Glucometer 151H 06/28/20 15:38: Glucometer 104 06/28/20 20:56: Glucometer 120H 06/29/20 05:54: Glucometer 148H 06/29/20 06:11: White Blood Count 7.5, Red Blood Count 3.15L, Hemoglobin 9.9L, Hematocrit 30L, Mean Corpuscular Volume 96, Mean Corpuscular Hemoglobin 31, Mean Corpuscular Hemoglobin Concent 33, Red Cell Distribution Width 12.8, Platelet Count 295, Mean Platelet Volume 10.4, Immature Granulocyte % (Auto) 1, Neutrophils (%) (Auto) 74, Lymphocytes (%) (Auto) 17, Monocytes (%) (Auto) 7, Eosinophils (%) (Auto) 2, Basophils (%) (Auto) 0, Neutrophils # (Auto) 5.6, Lymphocytes # (Auto) 1.3, Monocytes # (Auto) 0.5, Eosinophils # (Auto) 0.1, Basophils # (Auto) 0.0, Immature Granulocyte # (Auto) 0.0, Sodium Level 137, Potassium Level 3.3L, Chloride Level 106, Carbon Dioxide Level 24, Anion Gap 7, Blood Urea Nitrogen 5L , Creatinine 0.64, Estimat Glomerular Filtration Rate > 60, BUN/Creatinine Ratio 8, Glucose Level 138H, Calcium Level 8.2L, Corrected Calcium 9.1, Total Bilirubin 0.3, Aspartate Amino Transf (AST/SGOT) 23, Alanine Aminotransferase (ALT/SGPT) 25, Alkaline Phosphatase 58, Total Protein 6.3L, Albumin 2.9L Microbiology 06/27/20 Gram Stain - Final, Resulted 06/27/20 Anaerobic Culture, Resulted Pending 06/27/20 Surgical Culture - Preliminary, Resulted Staphylococcus capitis 06/27/20 MRSA Screen - Final, Complete MRSA not isolated 06/25/20 Blood Culture - Preliminary, Resulted No growth 06/25/20 Urine Culture - Final, Complete 3 or more isolates Assessment/Plan Assessment/Plan Assessment/Plan s/p R medial thigh abscess I&D - 06/27 R thigh cellulitis Morbid Obesity POD#2 s/p I&D of R thigh abscess; Dressing changes daily Cellulitis improving Continue antibiotics Pain control Clinical Quality Measures DVT/VTE Risk/Contraindication: Risk Factor Score Per Nursin RFS Level Per Nursing on Admit: 3=High JHON CORDERO DO 06/29/20 1634: Subjective Subjective/Events-last exam Feeling better. erythema less. wanting to go home. minimal pain to right leg. Denies n/v fever sweats chills shortness of breath or chest pain. Objective Exam General Appearance: No Apparent Distress, Obese HEENT: PERRL/EOMI, Normal ENT Inspection Neck: Full Range of Motion, Normal Inspection Respiratory: Chest Non Tender, No Accessory Muscle Use, No Respiratory Distress Cardiovascular: Regular Rate, Rhythm, No JVD Gastrointestinal: non tender, soft Extremity: Inflammation (R medial thigh less), Swelling (R medial thigh less), Other (Right thigh open wound packed decreasing erythema) Neurologic/Psychiatric: Alert, Oriented x3, No Motor/Sensory Deficits, Normal Mood/Affect Skin: Normal Color, Warm/Dry, Erythema ( less right medial thigh), Other (right inner thigh open wound with surrounding cellulitis regressing slight surrounding induration) Assessment/Plan Assessment/Plan Assessment/Plan s/p R medial thigh abscess I&D - 06/27 R thigh cellulitis Morbid Obesity POD#2 s/p I&D of R thigh abscess; Dressing changes daily Cellulitis improving Continue antibiotics Pain control ok to dc home with outpatient follow up told if any issues with packing will arrange through office. Supervisory-Addendum Brief Verification & Attestation Participated in pt care: history, MDM, physical Personally performed: exam, history, MDM, supervision of care Care discussed with: Medical Student Procedures: n/a Results interpretation: Verified all documentation Verification and Attestation of Medical Student E/M Service A medical student performed and documented this service in my presence. I reviewed and verified all information documented by the medical student and made modifications to such information, when appropriate. I personally performed the physical exam and medical decision making. Jhon Cordero, Jun 29, 2020,16:34 LOKESH VANESSA MED STUDENT Jun 29, 2020 07:41 JHON CORDERO DO Jun 29, 2020 16:34
[2020-06-29 08:00] VITALS: BP 117/58
[2020-06-29] MEDS: DOCUSATE SODIUM 100 MG (COLACE) CAP PO SCH (08:58)
[2020-06-29] MEDS: SENNOSIDES 8.6 MG (SENOKOT) TAB PO SCH (08:58)
[2020-06-29] MEDS: ENOXAPARIN 60 MG/0.6 ML (LOVENOX) SYR SC SCH (08:58)
[2020-06-29] MEDS ORDERED: AMOX-358 PO (12:13)
[2020-06-29] MEDS ORDERED: BENZ100C18 PO (12:14)
[2020-06-29] MEDS ORDERED: BENZONATATE 100 MG (TESSALON) CAPSULE PO PRN ×2 (12:15→12:30)
--- NOTE | 2020-06-29 12:21 | Discharge Inst-Simple/Standard ---
Discharge Inst-Standard Patient Instructions/Follow Up Plan of Care/Instructions/FU: Please continue to take your medications as written. Please follow up with aprimary care doctor at [facility] to follow up this hospital stay and with Dr Cordero as well. Activity as Tolerated: Yes Discharge Diet: No Restrictions Return to The Hospital For: Chest pain, fever, shortness of breath, abdominal pain, confusion, worsening drainage, pain or redness from surgery site. TRINITY DELA CRUZ MD Jun 29, 2020 12:21
[2020-06-29] MEDS ORDERED: CHLORASEPTIC LOZENGE MM PRN (12:30)
[2020-06-29] MEDS ORDERED: METF-397 PO (12:34)
--- NOTE | 2020-06-29 14:39 | Discharge Summary ---
Diagnosis/Chief Complaint Date of Admission Jun 25, 2020 at 23:17 Date of Discharge Discharge Date: Jun 29, 2020 Admission Diagnosis Severe sepsis due to cellulitis and abscess of right thigh Primary Care No,Local Physician Discharge Diagnosis (1) Severe sepsis Status: Acute (2) Cellulitis of right thigh Status: Acute (3) Abscess of right thigh Status: Acute (4) Lactic acidosis Status: Acute (5) Hyperglycemia Status: Acute (6) PCOS (polycystic ovarian syndrome) Status: Chronic (7) Super obese Status: Chronic Discharge Summary Procedures/Consulations Surgery- Dr Elmore and Dr Cordero Discharge Physical Exam Allergies: Coded Allergies: No Known Drug Allergies (Unverified , 09/12/11) Vitals & I&Os Vital Signs Date Time Temp Pulse Resp B/P (MAP) Pulse Ox O2 Delivery O2 Flow Rate FiO2 06/29/20 08:00 36.4 60 20 117/58 (77) 93 Room Air 06/27/20 11:20 6 General Appearance: No Apparent Distress, Obese Respiratory: Lungs Clear, No Respiratory Distress Cardiovascular: Regular Rate, Rhythm, No Murmur Extremity: Other (surgical wound dressed, erythema improving) Neurologic/Psychiatric: Alert, Oriented x3 Hospital Course Pt was admitted due to abscess and cellulitis and severe sepsis. She was started on IV abx and under I&D in the OR. She responded well and was able to be discharged home in stable condition on Augmentin. She was found to have elevated blood sugars and A1c was 8.4. She has had previously issues with this and was on metformin while seeking fertility treatment. Metformin was resumed upon discharge. She is to follow up at [facility] where she is employed. Labs (last 24 hrs) Laboratory Tests 06/28/20 15:38: Glucometer 104 06/28/20 20:56: Glucometer 120H 06/29/20 05:54: Glucometer 148H 06/29/20 06:11: White Blood Count 7.5, Red Blood Count 3.15L, Hemoglobin 9.9L, Hematocrit 30L, Mean Corpuscular Volume 96, Mean Corpuscular Hemoglobin 31, Mean Corpuscular Hemoglobin Concent 33, Red Cell Distribution Width 12.8, Platelet Count 295, Mean Platelet Volume 10.4, Immature Granulocyte % (Auto) 1, Neutrophils (%) (Auto) 74, Lymphocytes (%) (Auto) 17, Monocytes (%) (Auto) 7, Eosinophils (%) (Auto) 2, Basophils (%) (Auto) 0, Neutrophils # (Auto) 5.6, Lymphocytes # (Auto) 1.3, Monocytes # (Auto) 0.5, Eosinophils # (Auto) 0.1, Basophils # (Auto) 0.0, Immature Granulocyte # (Auto) 0.0, Sodium Level 137, Potassium Level 3.3L, Chloride Level 106, Carbon Dioxide Level 24, Anion Gap 7, Blood Urea Nitrogen 5L , Creatinine 0.64, Estimat Glomerular Filtration Rate > 60, BUN/Creatinine Ratio 8, Glucose Level 138H, Calcium Level 8.2L, Corrected Calcium 9.1, Total Bilirubin 0.3, Aspartate Amino Transf (AST/SGOT) 23, Alanine Aminotransferase (ALT/SGPT) 25, Alkaline Phosphatase 58, Total Protein 6.3L, Albumin 2.9L 06/29/20 11:13: Glucometer 130H Microbiology 06/27/20 Gram Stain - Final, Resulted 06/27/20 Anaerobic Culture, Resulted Pending 06/27/20 Surgical Culture - Preliminary, Resulted Staphylococcus capitis Susceptibility To Follow 06/27/20 MRSA Screen - Final, Complete MRSA not isolated 06/25/20 Blood Culture - Preliminary, Resulted No growth 06/25/20 Urine Culture - Final, Complete 3 or more isolates Patient resulted labs reviewed. Pending Labs Laboratory Tests 06/29/20 11:13: Glucometer 130 Imaging: Reviewed Imaging Report Discussion & Recommendations Discharge Planning: >30 minutes discharge planning Discharge Home Medications: Active Scripts Active Metformin HCl 500 Mg Tablet 500 Mg PO BID Tessalon Perles (Benzonatate) 100 Mg Capsule 100 Mg PO TID PRN Augmentin 875-125 Tablet (Amoxicillin/Potassium Clav) 1 Each Tablet 1 Each PO BID Reported Ibuprofen 200 Mg Tablet 400-600 Mg PO Q6H PRN Instructions to patient/family Please see electronic discharge instructions given to patient. Clinical Quality Measures DVT/VTE Risk/Contraindication: Risk Factor Score Per Nursin RFS Level Per Nursing on Admit: 3=High Copy Copies To 1: [facility]/TRINITY BUCKNER MD Jun 29, 2020 14:39
[2020-06-29 16:07] VITALS: BP 111/63
[2020-06-29 16:19] VITALS: BP 111/63
== END 2020-06-29 16:15 | disposition home or self-care (01) | DRG 854 ==
LOC: EDUNIT# 21:33 → ER 21:34 → 4TH 23:17
PROVIDERS: ADMIT Internal Medicine; ATTEND Internal Medicine
PROC: 0J9L0ZZ Drainage of Right Upper Leg Subcutaneous Tissue and Fascia, Open Approach (ICD-10-PCS; principal; 2020-06-27 10:51)
DX: A41.9 Sepsis, unspecified organism (principal); L03.115 Cellulitis of right lower limb; Z68.43 Body mass index [BMI] 50.0-59.9, adult; E87.2 Acidosis; R65.20 Severe sepsis without septic shock; E11.65 Type 2 diabetes mellitus with hyperglycemia; E66.01 Morbid (severe) obesity due to excess calories; F17.210 Nicotine dependence, cigarettes, uncomplicated; E28.2 Polycystic ovarian syndrome
CPT/HCPCS: 36415; 71045; 80053; 81000; 82962; 83036; 83605; 83615; 84145; 84703; 85007; 85025; 85027; 85610; 85730; 86141; 87040; 87070; 87075; 87076; 87077; 87081; 87088; 87185; 87186; 87205; 87635; 87804

== ENCOUNTER 2022-05-14 14:32 | Emergency (ER) | payer OTHER ==
[~2022-05-14] VITALS: Ht 157 cm; Wt 122.1 kg
[~2022-05-14 14:32] MED LIST changes: +AMOX-358 PO; +BENZ100C18 PO; +HYDR-4085 PO; -HYDR-87 PO; +IBUP-2473 PO; +METF-397 PO
--- NOTE | 2022-05-14 14:36 | ED Abdominal Pain ---
General Stated Complaint: RIGHT SIDE ABD PAIN Source of Information: Patient Exam Limitations: No Limitations History of Present Illness Date Seen by Provider: May 14, 2022 Time Seen by Provider: 14:37 Initial Comments 37 y/o female presents this afternoon with c/o right sided abdominal/flank pain that started around midnight. Pain is constant and progressively worsening, radiates into lower back. She also c/o nausea. Has h/o kidney stones, ovarian cysts, PCOS, insulin resistance. She denies fever, chills, vomiting, diarrhea, urinary symptoms, vaginal bleeding. Pt took ibuprofen at 1300 with no relief. Timing/Duration: 12-24 Hours Severity/Quality: Moderate, Sharp Location: RUQ, RLQ, Flank Radiation: Back Modifying Factors: Improves With Other (none) Associated Symptoms: Back Pain; No Chest Pain, No Diaphoresis, No Fever/Chills, No Fatigue, No Headache, No Heartburn; Nausea/Vomiting (nausea, no vomiting); No Shortness of Air, No Swelling/Mass in Abdomen, No Syncope, No Weakness Allergies and Home Medications Allergies Coded Allergies: No Known Drug Allergies (Unverified , 09/12/11) Patient Home Medication List Home Medication List Reviewed: Yes Cephalexin (Cephalexin) 500 Mg Tablet, 500 MG PO TID Prescribed by: Benson Musa on 05/14/22 1634 Ondansetron (Ondansetron Odt) 4 Mg Tab.rapdis, 4 MG SL Q4H PRN for NAUSEA/VOMITING Prescribed by: Benson Musa on 05/14/22 1633 Tramadol HCl (Tramadol HCl) 50 Mg Tablet, 50 MG PO Q4H PRN for pain Prescribed by: RIGO BEACH MD on 05/14/22 1653 Last Action: New Order Discontinued Medications Amoxicillin/Potassium Clav (Augmentin 875-125 Tablet) 1 Each Tablet, 1 EACH PO BID Discontinued Reason: No Longer Taking Prescribed by: TRINITY DELA CRUZ on 06/29/20 1213 Last Action: Discontinued Benzonatate (Tessalon Perles) 100 Mg Capsule, 100 MG PO TID PRN for cough Discontinued Reason: No Longer Taking Prescribed by: TRINITY DELA CRUZ on 06/29/20 1214 Last Action: Discontinued Ibuprofen (Ibuprofen) 200 Mg Tablet, 400-600 MG PO Q6H PRN for PAIN-MILD (1-4), (Reported) Discontinued Reason: No Longer Taking Entered as Reported by: ZIA FERNANDO on 06/28/20 0943 Last Action: Discontinued Metformin HCl (Metformin HCl) 500 Mg Tablet, 500 MG PO BID Discontinued Reason: No Longer Taking Prescribed by: TRINITY DELA CRUZ on 06/29/20 1234 Last Action: Discontinued Tramadol HCl (Tramadol HCl) 50 Mg Tablet, 50 MG PO Q4H PRN for PAIN-SEVERE (8- 10) Prescribed by: Benson Musa on 05/14/22 1633 Last Action: Discontinued Tramadol HCl (Tramadol HCl) 50 Mg Tablet, 50 MG PO Q4H PRN for PAIN-SEVERE (8- 10) Prescribed by: Benson Musa on 05/14/22 1647 Last Action: Discontinued Review of Systems Review of Systems Constitutional: No chills, No dizziness, No fever, No malaise, No weakness EENTM: No Symptoms Reported Respiratory: Denies Cough, Denies Shortness of Air, Denies Wheezing Cardiovascular: Denies Chest Pain, Denies Edema, Denies Irregular Heart Rate, Denies Lightheadedness, Denies Palpitations Gastrointestinal: Denies Abdomen Distended; Abdominal Pain; Denies Blood Streaked Stools, Denies Constipated, Denies Diarrhea, Denies Difficulty Swallowing; Nausea; Denies Poor Appetite, Denies Poor Fluid Intake, Denies Rectal Bleeding, Denies Vomiting Genitourinary: Denies Burning, Denies Discharge, Denies Drainage, Denies Frequency; Flank Pain; Denies Hematuria, Denies Incontinence, Denies Urgency Musculoskeletal: back pain; No muscle pain, No muscle stiffness, No muscle cramps, No muscle weakness Skin: no symptoms reported Endocrine: No Symptoms Reported Hematologic/Lymphatic: No Symptoms Reported Past [id number]-[id number] Hx Patient Social History Tobacco Use?: No Substance use?: No Alcohol Use?: No Immunizations Up To Date Tetanus Booster (TDap): Unknown PED Vaccines UTD: Yes Seasonal Allergies Seasonal Allergies: No Past Medical History Surgeries: Yes (LAPAROSCOPY/HYSTEROSCOPY FOR INFERTILITY ISSUES) Respiratory: No Cardiac: No Neurological: No Reproductive Disorders: Yes (INFERTILITY) Female Reproductive Disorders: Menstrual Problems, Polycystic Ovarian Dis Genitourinary: No Gastrointestinal: No Musculoskeletal: No Endocrine: Yes (MORBID OBESITY) HEENT: No Cancer: No Psychosocial: No Integumentary: Yes Blood Disorders: No Family Medical History Heart Disease, Diabetes, Other Conditions/Hx Physical Exam Vital Signs Vital Signs - First Documented 05/14/22 14:40 Temp 36.4 Pulse 90 Resp 16 B/P (MAP) 146/93 (110) Pulse Ox 97 O2 Delivery Room Air Capillary Refill : Height/Weight/BMI Height: 5'2.00" Weight: 250lbs. oz. [id number]; 51.18 BMI Method:Stated General Appearance: WD/WN, no apparent distress HEENT: PERRL/EOMI, normal ENT inspection Neck: non-tender, full range of motion, supple Respiratory: chest non-tender, lungs clear, normal breath sounds Cardiovascular: regular rate, rhythm, no edema Gastrointestinal: normal bowel sounds, soft, no organomegaly; No distended, No guarding, No rebound; tenderness (RUQ, RLQ) Back: normal inspection, no CVA tenderness Neurologic/Psychiatric: no motor/sensory deficits, alert, normal mood/affect, oriented x 3 Skin: normal color, warm/dry Progress/Results/Core Measures Results/Orders Lab Results Laboratory Tests Test 05/14/22 14:58 05/14/22 15:12 Range/Units White Blood Count 8.8 4.3-11.0 10^3/uL Red Blood Count 4.75 3.80-5.11 10^6/uL Hemoglobin 14.7 11.5-16.0 g/dL Hematocrit 44 35-52 % Mean Corpuscular Volume 92 80-99 fL Mean Corpuscular Hemoglobin 31 25-34 pg Mean Corpuscular Hemoglobin Concent 34 32-36 g/dL Red Cell Distribution Width 12.9 10.0-14.5 % Platelet Count 300 130-400 10^3/uL Mean Platelet Volume 10.5 9.0-12.2 fL Immature Granulocyte % (Auto) 0 % Neutrophils (%) (Auto) 79 H 42-75 % Lymphocytes (%) (Auto) 17 12-44 % Monocytes (%) (Auto) 3 0-12 % Eosinophils (%) (Auto) 1 0-10 % Basophils (%) (Auto) 0 0-10 % Neutrophils # (Auto) 7.0 1.8-7.8 X 10^3 Lymphocytes # (Auto) 1.5 1.0-4.0 X 10^3 Monocytes # (Auto) 0.3 0.0-1.0 X 10^3 Eosinophils # (Auto) 0.1 0.0-0.3 10^3/uL Basophils # (Auto) 0.0 0.0-0.1 10^3/uL Immature Granulocyte # (Auto) 0.0 0.0-0.1 10^3/uL Sodium Level 136 135-145 MMOL/L Potassium Level 4.2 3.6-5.0 MMOL/L Chloride Level 104 98-107 MMOL/L Carbon Dioxide Level 20 L 21-32 MMOL/L Anion Gap 12 5-14 MMOL/L Blood Urea Nitrogen 10 7-18 MG/DL Creatinine 0.81 0.60-1.30 MG/DL Estimat Glomerular Filtration Rate 96 BUN/Creatinine Ratio 12 Glucose Level 290 H 70-105 MG/DL Calcium Level 9.4 8.5-10.1 MG/DL Corrected Calcium 9.4 8.5-10.1 MG/DL Total Bilirubin 0.4 0.1-1.0 MG/DL Aspartate Amino Transf (AST/SGOT) 21 5-34 U/L Alanine Aminotransferase (ALT/SGPT) 31 0-55 U/L Alkaline Phosphatase 61 40-136 U/L C-Reactive Protein High Sensitivity 5.20 H 0.00-0.50 MG/DL Total Protein 7.8 6.4-8.2 GM/DL Albumin 4.0 3.2-4.5 GM/DL Lipase 42 8-78 U/L Serum Test, Qualitative NEGATIVE NEGATIVE Urine Color YELLOW Urine Clarity SL CLOUDY Urine pH 6.0 5-9 Urine Specific [place] 1.025 H 1.016-1.022 Urine Protein NEGATIVE NEGATIVE Urine Glucose (UA) 3+ H NEGATIVE Urine Ketones NEGATIVE NEGATIVE Urine Nitrite NEGATIVE NEGATIVE Urine Bilirubin NEGATIVE NEGATIVE Urine Urobilinogen 0.2 < = 1.0 MG/DL Urine Leukocyte Esterase TRACE H NEGATIVE Urine RBC (Auto) 3+ H NEGATIVE Urine RBC 5-10 H /HPF Urine WBC 10-25 H /HPF Urine Squamous Epithelial Cells 2-5 /HPF Urine Crystals NONE /LPF Urine Bacteria MODERATE H /HPF Urine Casts NONE /LPF Urine Mucus NEGATIVE /LPF Urine Yeast FEW H /HPF Urine Culture Indicated YES My Orders Orders - BENSON MUSA TICKET COUNTER Cbc With Automated Diff (05/14/22 14:39) Comprehensive Metabolic Panel (05/14/22 14:39) Hs C Reactive Protein (05/14/22 14:39) Lipase (05/14/22 14:39) Urinalysis (05/14/22 14:39) Ed Iv/Invasive Line Start (05/14/22 14:39) Hcg,Qualitative Serum (05/14/22 15:08) Ns Iv 1000 Ml (Sodium Chloride 0.9%) (05/14/22 15:15) Ondansetron Injection (Zofran Injectio (05/14/22 15:15) Ketorolac Injection (Toradol Injection) (05/14/22 15:30) Ct Abdomen/Pelvis W (05/14/22 15:22) Iohexol Injection (Omnipaque 350 Mg/Ml 1 (05/14/22 15:30) Ns (Ivpb) (Sodium Chloride 0.9% Ivpb Bag (05/14/22 15:30) Urine Culture (05/14/22 15:12) Ceftriaxone 1 Gm Pre-Mix (Rocephin 1 Gm (05/14/22 16:00) Medications Given in ED Current Medications Medications Dose Ordered Sig/Milly Route Start Time Stop Time Status Last Admin Dose Admin Ceftriaxone Sodium/Dextrose 50 ml @ 100 mls/hr ONCE ONCE IV 05/14/22 16:00 05/14/22 16:29 DC 05/14/22 16:05 100 MLS/HR Iohexol 100 ml ONCE ONCE IV 05/14/22 15:30 05/14/22 15:31 DC 05/14/22 15:45 100 ML Ketorolac Tromethamine 30 mg ONCE ONCE IVP 05/14/22 15:30 05/14/22 15:31 DC 05/14/22 15:25 30 MG Ondansetron HCl 4 mg ONCE ONCE IVP 05/14/22 15:15 05/14/22 15:16 DC 05/14/22 15:21 4 MG Sodium Chloride 100 ml ONCE ONCE IV 05/14/22 15:30 05/14/22 15:31 DC 05/14/22 15:45 80 ML Sodium Chloride 1,000 ml @ 0 mls/hr Q0M ONCE IV 05/14/22 15:15 05/14/22 15:16 DC 05/14/22 15:21 0 MLS/HR Vital Signs/I&O 05/14/22 14:40 Temp 36.4 Pulse 90 Resp 16 B/P (MAP) 146/93 (110) Pulse Ox 97 O2 Delivery Room Air Progress Progress Note : Progress Note Pt reports resolution of nausea and pain following zofran and toradol admi nistration. She is afebrile, in NAD, vitals stable. She is resting comfortably in exam room during entire visit, has had no episodes of vomiting. She was given 1L NS. CT reveals 5mm calculus in ureter, no obstruction. She reports she is unable to tolerate hydrocodone or oxycodone for home pain control, they make her nauseous, but has had tramadol in the past and thinks she is fine with that. Urinalysis reveals trace leukocytes and bacteria. Pt given 1gm of rocephin and will treat with keflex while awaiting urine culture. Will discharge home with rx for tramadol 50mg Q4hr prn. She is to f/u with urology tomorrow. Return precautions discussed. Departure Impression Primary Impression: Ureterolithiasis Disposition: HOME, SELF-CARE Condition: Stable Departure-Patient Inst. Decision time for Depature: 16:20 Referrals: NO,LOCAL PHYSICIAN (PCP) Primary Care Physician UROLOGY DR HOGUE Patient Instructions: Kidney Stones in Adults Add. Discharge Instructions: Push fluids, drink at least 2 liters of water daily. Tramadol as needed for moderate-severe pain. Tylenol 500mg every 4 hours as needed. Ibuprofen 600mg every 6 hours as needed. Take antibiotic as prescribed. Strain your urine to collect stone when it passes. Follow up with urology in 1-2 days. Follow up with new/worsening concerns Scripts Tramadol HCl (Tramadol HCl) 50 Mg Tablet 50 MG PO Q4H PRN for pain for 3 Days, #10 TAB Prov: RIGO BEACH DO 05/14/22 Cephalexin (Cephalexin) 500 Mg Tablet 500 MG PO TID for 7 Days, #21 TAB Prov: BENSON MUSA TICKET COUNTER 05/14/22 Ondansetron (Ondansetron Odt) 4 Mg Tab.rapdis 4 MG SL Q4H PRN for NAUSEA/VOMITING, #8 TAB Prov: BENSON MUSA TICKET COUNTER 05/14/22 BENSON MUSA APRN May 14, 2022 14:36
[2022-05-14 15:13] LABS: BASOPHILS % (AUTO) 0 % (0-10); EOSINOPHILS # (AUTO) 0.1 10^3/uL (0.0-0.3); EOSINOPHILS % (AUTO) 1 % (0-10); HEMATOCRIT 44 % (35-52); HEMOGLOBIN 14.7 g/dL (11.5-16.0); LYMPHOCYTES # (AUTO) 1.5 X 10^3 (1.0-4.0); LYMPHOCYTES % (AUTO) 17 % (12-44); MEAN CORPUSCULAR HEMOGLOBIN 31 pg (25-34); MEAN CORPUSCULAR HGB CONC 34 g/dL (32-36); MEAN CORPUSCULAR VOLUME 92 fL (80-99); MEAN PLATELET VOLUME 10.5 fL (9.0-12.2); MONOCYTES # (AUTO) 0.3 X 10^3 (0.0-1.0); MONOCYTES % (AUTO) 3 % (0-12); NEUTROPHILS % (AUTO) 79 % (42-75); PLATELET COUNT 300 10^3/uL (130-400); WHITE BLOOD COUNT 8.8 10^3/uL (4.3-11.0)
[2022-05-14] MEDS ORDERED: NS IV 1000 ML 1,000 ML IV ONE (15:15)
[2022-05-14] MEDS ORDERED: ONDANSETRON 4 MG/2 ML (SDV) Z0FRAN IVP ONE (15:15)
[2022-05-14 15:16] LABS: POTASSIUM 4.2 MMOL/L (3.6-5.0)
[2022-05-14 15:17] LABS: CALCIUM 9.4 MG/DL (8.5-10.1)
[2022-05-14 15:18] LABS: TOTAL PROTEIN 7.8 GM/DL (6.4-8.2)
[2022-05-14 15:20] LABS: BILIRUBIN,TOTAL 0.4 MG/DL (0.1-1.0)
[2022-05-14 15:22] LABS: CREATININE SERUM 0.81 MG/DL (0.60-1.30)
[2022-05-14] MEDS ORDERED: KETOROLAC 30 MG/ML VIAL IVP ONE (15:30)
[2022-05-14] MEDS ORDERED: IOHEXOL 350 MG/ML 100 ML (OMNIPAQUE 350) VIAL IV ONE (15:30)
[2022-05-14] MEDS ORDERED: NS 100 ML (IVPB) BAG IV ONE (15:30)
[2022-05-14 15:34] LABS: BILIRUBIN,URINE NEGATIVE (NEGATIVE); CLARITY,URINE SL CLOUDY; COLOR,URINE YELLOW; GLUCOSE, URINE (UA) 3+ (NEGATIVE); KETONES,URINE NEGATIVE (NEGATIVE); LEUKOCYTE ESTERASE ,URINE TRACE (NEGATIVE); NITRITE,URINE NEGATIVE (NEGATIVE); PROTEIN,URINE NEGATIVE (NEGATIVE)
[2022-05-14 15:43] LABS: BACTERIA,URINE MODERATE /HPF; YEAST,URINE FEW /HPF
--- NOTE | 2022-05-14 15:55 | Diagnostic Imaging Report ---
EXAMINATION: CT abdomen and pelvis with intravenous contrast. TECHNIQUE: Multiple contiguous axial images were obtained through the abdomen and pelvis after the uneventful administration of intravenous contrast. All CT scans use one or more of the following dose optimizing techniques: automated exposure control, MA and/or KvP adjustment based on patient size and exam type or iterative reconstruction. HISTORY: Right flank pain, nausea COMPARISON: 05/25/2019 FINDINGS: Lung bases: Bibasilar dependent atelectasis. Solid organs: The liver is normal without focal lesion. The gallbladder is normal. There is no biliary ductal dilation. Pancreas is normal. Spleen is normal. Adrenal glands are normal. There is a 0.5 cm calculus within the mid right ureter resulting in moderate hydronephrosis and mildly delayed right nephrogram. Left kidney is unremarkable without hydronephrosis. Bowel: The stomach and small bowel are normal without obstruction. The colon is unremarkable. No findings of acute appendicitis. Peritoneum: There is no intraperitoneal free fluid or free air. No suspicious lymphadenopathy. Vasculature: Normal without aneurysm. Musculoskeletal: No suspicious osseous lesion or compression fracture. Pelvis: There is mild fluid within the endometrial cavity. Suggestion of a uterine fibroid. The urinary bladder is normal. IMPRESSION: A 0.5 cm calculus within the mid right ureter resulting in mild right hydronephrosis. Dictated by: Dictated on workstation # [id number]
[2022-05-14] MEDS ORDERED: cefTRIAXone 1 GM PRE-MIX 50 ML IV ONE (16:00)
[2022-05-14] MEDS ORDERED: TRM50T PO ×3 (16:33→16:53)
[2022-05-14] MEDS ORDERED: ONDA4TAB11 SL (16:33)
[2022-05-14] MEDS ORDERED: CEPH500T PO (16:34)
[2022-05-14 16:55] VITALS: BP 138/82
== END 2022-05-14 16:55 | disposition home or self-care (01) ==
LOC: EDUNIT# 14:32 → ER 14:35
DX: N20.1 Calculus of ureter (principal); E66.01 Morbid (severe) obesity due to excess calories; Z68.43 Body mass index [BMI] 50.0-59.9, adult; Z32.02 Encounter for pregnancy test, result negative
CPT/HCPCS: 36415; 74177; 80053; 81000; 83690; 84703; 85025; 86141; 87077; 87088; 87186

== ENCOUNTER 2022-05-14 18:22 | Emergency (ER) | payer OTHER ==
[~2022-05-14] VITALS: Ht 157 cm; Wt 122.1 kg
[~2022-05-14 18:22] MED LIST changes: +CEPH500T PO; +ONDA4TAB11 SL; +TRM50T PO
[2022-05-14] MEDS ORDERED: PROMETHAZINE INJ 25 MG/ML (PHENERGAN) AMP IVP ONE (19:00)
[2022-05-14] MEDS ORDERED: fentaNYL INJ 100 MCG/2 ML AMP IVP ONE (19:00)
[2022-05-14] MEDS ORDERED: LACTATED RINGERS 1,000 ML IV ONE ×2 (19:00→22:00)
[2022-05-14 19:23] LABS: BASOPHILS % (AUTO) 1 % (0-10); EOSINOPHILS % (AUTO) 0 % (0-10); HEMATOCRIT 44 % (35-52); HEMOGLOBIN 14.6 g/dL (11.5-16.0); LYMPHOCYTES # (AUTO) 0.3 10^3/uL (1.0-4.0); LYMPHOCYTES % (AUTO) 7 % (12-44); MEAN CORPUSCULAR HEMOGLOBIN 31 pg (25-34); MEAN CORPUSCULAR HGB CONC 33 g/dL (32-36); MEAN CORPUSCULAR VOLUME 94 fL (80-99); MEAN PLATELET VOLUME 10.6 fL (9.0-12.2); MONOCYTES # (AUTO) 0.1 10^3/uL (0.0-1.0); MONOCYTES % (AUTO) 2 % (0-12); NEUTROPHILS # (AUTO) 4.1 10^3/uL (1.8-7.8); NEUTROPHILS % (AUTO) 90 % (42-75); PLATELET COUNT 237 10^3/uL (130-400); WHITE BLOOD COUNT 4.5 10^3/uL (4.3-11.0)
[2022-05-14 19:47] LABS: BAND NEUTROPHILS 12 %; EOSINOPHILS % (MANUAL) 1 %; LYMPHOCYTES % (MANUAL) 12 %; MONOCYTES % (MANUAL) 1 %; NEUTROPHILS % (MANUAL) 75 %; TOXIC GRANULATION/VACUOLAZATIO 1+
[2022-05-14 20:45] LABS: CALCIUM 8.4 MG/DL (8.5-10.1); CREATININE SERUM 0.73 MG/DL (0.60-1.30); MAGNESIUM 1.4 MG/DL (1.6-2.4); POTASSIUM 3.7 MMOL/L (3.6-5.0)
--- NOTE | 2022-05-14 22:11 | ED General ---
General Chief Complaint: Fever-Adult/Adol Stated Complaint: POSSIBLE OVERDOSE Nursing Triage Note: PT STATES SHE TOOK 1 TRAMADOL AT 1720 AND ANOTHER AT 1810, PT STATES SHE DOESN'T FEEL RIGHT AND CAN'T STOP SHAKING. PT HAS NOT EATEN OR DRANK ANYTHING WITH THE MEDICATION. PT WAS SEEN HERE EARLIER FOR KIDNEY STONE AND UTI Source of Information: Patient, Old Records Exam Limitations: No Limitations History of Present Illness Date Seen by Provider: May 14, 2022 Time Seen by Provider: 18:50 Initial Comments This 37-year-old woman presents to the emergency room with complaints of abdominal pain and vomiting. She was seen this afternoon in the emergency room and diagnosed with a right obstructing ureteral stone. She also had evidence of pyuria and was treated for urinary tract infection with Rocephin. She was discharged home but symptoms were not controlled. She took Ultram and started vomiting afterwards. She does seem to have a a lot of problems with opioids causing nausea and vomiting. She is now also febrile and tachycardic. Allergies and Home Medications Allergies Coded Allergies: No Known Drug Allergies (Unverified , 09/12/11) Patient Home Medication List Home Medication List Reviewed: Yes Cephalexin (Cephalexin) 500 Mg Tablet, 500 MG PO TID Prescribed by: Benson Musa on 05/14/22 1634 Ondansetron (Ondansetron Odt) 4 Mg Tab.rapdis, 4 MG SL Q4H PRN for NAUSEA/VOMITING Prescribed by: Benson Musa on 05/14/22 1633 Tramadol HCl (Tramadol HCl) 50 Mg Tablet, 50 MG PO Q4H PRN for pain Prescribed by: RIGO BEACH MD on 05/14/22 1653 Discontinued Medications Amoxicillin/Potassium Clav (Augmentin 875-125 Tablet) 1 Each Tablet, 1 EACH PO BID Discontinued Reason: No Longer Taking Prescribed by: TRINITY DELA CRUZ on 06/29/20 1213 Benzonatate (Tessalon Perles) 100 Mg Capsule, 100 MG PO TID PRN for cough Discontinued Reason: No Longer Taking Prescribed by: TRINITY DELA CRUZ on 06/29/20 1214 Ibuprofen (Ibuprofen) 200 Mg Tablet, 400-600 MG PO Q6H PRN for PAIN-MILD (1-4), (Reported) Discontinued Reason: No Longer Taking Entered as Reported by: ZIA FERNANDO on 06/28/20 0943 Metformin HCl (Metformin HCl) 500 Mg Tablet, 500 MG PO BID Discontinued Reason: No Longer Taking Prescribed by: TRINITY DELA CRUZ on 06/29/20 1234 Tramadol HCl (Tramadol HCl) 50 Mg Tablet, 50 MG PO Q4H PRN for PAIN-SEVERE (8- 10) Prescribed by: Benson Musa on 05/14/22 1633 Tramadol HCl (Tramadol HCl) 50 Mg Tablet, 50 MG PO Q4H PRN for PAIN-SEVERE (8- 10) Prescribed by: Benson Musa on 05/14/22 1647 Review of Systems Review of Systems Constitutional: see HPI EENTM: no symptoms reported Respiratory: no symptoms reported Cardiovascular: see HPI Gastrointestinal: see HPI Genitourinary: see HPI : No Musculoskeletal: no symptoms reported Skin: no symptoms reported Psychiatric/Neurological: No Symptoms Reported Hematologic/Lymphatic: No Symptoms Reported Immunological/Allergic: no symptoms reported Past Gqjmcgl-Jtzxuw-Kxiybu Hx Patient Social History Tobacco Use?: No Substance use?: No Alcohol Use?: No Immunizations Up To Date Tetanus Booster (TDap): Unknown PED Vaccines UTD: Yes Second COVID19 Vaccination Ben: YES Seasonal Allergies Seasonal Allergies: No Past Medical History Surgery/Hospitalization HX: HYSTEROSCOPY, I&D, PCOS, INSULIN RESTANT Surgeries: Yes (LAPAROSCOPY/HYSTEROSCOPY FOR INFERTILITY ISSUES, abscess I&D) Respiratory: No Cardiac: No Neurological: No : No Reproductive Disorders: Yes (INFERTILITY) Female Reproductive Disorders: Menstrual Problems, Polycystic Ovarian Dis Genitourinary: Yes Kidney Stones Gastrointestinal: No Musculoskeletal: No Endocrine: Yes (MORBID OBESITY, insulin resistance, prediabetes) HEENT: No Cancer: No Psychosocial: No Integumentary: Yes Blood Disorders: No Family Medical History Heart Disease, Diabetes, Other Conditions/Hx Physical Exam-Suspected Sepsis Physical Exam Vital Signs Vital Signs - First Documented 05/14/22 18:29 Temp 38.8 Pulse 128 Resp 22 B/P (MAP) 124/62 (82) Pulse Ox 98 O2 Delivery Room Air Capillary Refill : Less Than 3 Seconds Blood Pressure Mean: 82 Height, Weight, BMI Height: 5'2.00" Weight: 250lbs. oz. 113.688691os; 49.00 BMI Method:Stated General Appearance: WD/WN, Moderate Distress, Obese HEENT: PERRL/EOMI, Normal ENT Inspection Neck: Normal Inspection; No JVD Respiratory: Lungs Clear, Normal Breath Sounds, No Accessory Muscle Use Cardiovascular: No Edema, No Murmur, Tachycardia Gastrointestinal: Normal Bowel Sounds, Non Tender, Soft Extremity: Normal Inspection, Non Tender, No Pedal Edema Neurologic/Psychiatric: Alert, Oriented x3, No Motor/Sensory Deficits, Normal Mood/Affect, guard chief II-XII Norm as Tested Skin: normal color, warm/dry Focused Exam Lactate Level 05/14/22 22:10: Lactic Acid Level 1.58 Progress/Results/Core Measures Suspected Sepsis SIRS Temperature: Pulse: 128 Respiratory Rate: 22 Laboratory Tests 05/14/22 19:12: White Blood Count 4.5 Blood Pressure 124 /62 Mean: 82 05/14/22 22:10: Lactic Acid Level 1.58 Laboratory Tests 05/14/22 19:12: Platelet Count 237 05/14/22 20:20: Creatinine 0.73 05/14/22 22:10: INR Comment 1.1 Results/Orders Lab Results Laboratory Tests Test 05/14/22 19:12 05/14/22 20:20 05/14/22 22:10 05/14/22 22:58 Range/Units White Blood Count 4.5 4.3-11.0 10^3/uL Red Blood Count 4.71 3.80-5.11 10^6/uL Hemoglobin 14.6 11.5-16.0 g/dL Hematocrit 44 35-52 % Mean Corpuscular Volume 94 80-99 fL Mean Corpuscular Hemoglobin 31 25-34 pg Mean Corpuscular Hemoglobin Concent 33 32-36 g/dL Red Cell Distribution Width 13.0 10.0-14.5 % Platelet Count 237 130-400 10^3/uL Mean Platelet Volume 10.6 9.0-12.2 fL Immature Granulocyte % (Auto) 0 % Neutrophils (%) (Auto) 90 H 42-75 % Lymphocytes (%) (Auto) 7 L 12-44 % Monocytes (%) (Auto) 2 0-12 % Eosinophils (%) (Auto) 0 0-10 % Basophils (%) (Auto) 1 0-10 % Neutrophils # (Auto) 4.1 1.8-7.8 10^3/uL Lymphocytes # (Auto) 0.3 L 1.0-4.0 10^3/uL Monocytes # (Auto) 0.1 0.0-1.0 10^3/uL Eosinophils # (Auto) 0.0 0.0-0.3 10^3/uL Basophils # (Auto) 0.0 0.0-0.1 10^3/uL Immature Granulocyte # (Auto) 0.0 0.0-0.1 10^3/uL Neutrophils % (Manual) 75 % Lymphocytes % (Manual) 12 % Monocytes % (Manual) 1 % Eosinophils % (Manual) 1 % Band Neutrophils 12 % Toxic Granulation 1+ Sodium Level 137 135-145 MMOL/L Potassium Level 3.7 3.6-5.0 MMOL/L Chloride Level 107 98-107 MMOL/L Carbon Dioxide Level 16 L 21-32 MMOL/L Anion Gap 14 5-14 MMOL/L Blood Urea Nitrogen 9 7-18 MG/DL Creatinine 0.73 0.60-1.30 MG/DL Estimat Glomerular Filtration Rate 109 BUN/Creatinine Ratio 12 Glucose Level 214 H 70-105 MG/DL Calcium Level 8.4 L 8.5-10.1 MG/DL Magnesium Level 1.4 L 1.6-2.4 MG/DL C-Reactive Protein High Sensitivity 6.81 H 0.00-0.50 MG/DL Prothrombin Time 14.6 12.2-14.7 SEC INR Comment 1.1 0.8-1.4 Activated Partial Thromboplast Time 27 24-35 SEC Lactic Acid Level 1.58 0.50-2.00 MMOL/L Influenza Type A (RT-PCR) Not Detected Not Detecte Influenza Type B (RT-PCR) Not Detected Not Detecte SARS-CoV-2 RNA (RT-PCR) Not Detected Not Detecte My Orders Orders - MEG SILVA MD Basic Metabolic Panel (05/14/22 18:51) Magnesium (05/14/22 18:51) Ed Iv/Invasive Line Start (05/14/22 18:51) Lactated Ringers (Lr 1000 Ml Iv Solution (05/14/22 19:00) Promethazine Injection (Phenergan Injec (05/14/22 19:00) Fentanyl Inj (Sublimaze Injection) (05/14/22 19:00) Cbc With Automated Diff (05/14/22 18:57) Hs C Reactive Protein (05/14/22 18:57) Manual Differential (05/14/22 19:12) Lactated Ringers (Lr 1000 Ml Iv Solution (05/14/22 22:00) Blood Culture (05/14/22 21:59) Protime With Inr (05/14/22 21:59) Partial Thromboplastin Time (05/14/22 21:59) Vital Signs Adult Sepsis Patie Q15M (05/14/22 21:59) Remove Rings In Anticipation O (05/14/22 21:59) Lactic Acid Analyzer (05/14/22 21:59) Ketorolac Injection (Toradol Injection) (05/14/22 22:15) Covid 19 Inhouse Test (05/14/22 22:52) Influenza A And B By Pcr (05/14/22 22:52) Magnesium 1 Gm/100 Ml Ivpb (Magnesium Gregory (05/15/22 00:15) Medications Given in ED Current Medications Medications Dose Ordered Sig/Milly Route Start Time Stop Time Status Last Admin Dose Admin Ketorolac Tromethamine 30 mg ONCE ONCE IVP 05/14/22 22:15 05/14/22 22:16 DC 05/14/22 22:19 30 MG Lactated Ringer's 1,000 ml @ 0 mls/hr Q0M ONCE IV 05/14/22 22:00 05/14/22 22:01 DC 05/14/22 22:19 0 MLS/HR Magnesium Sulfate/ Dextrose 100 ml @ 100 mls/hr ONCE ONCE IV 05/15/22 00:15 05/15/22 01:14 DC 05/15/22 00:26 100 MLS/HR Vital Signs/I&O 05/15/22 02:47 Temp 36.9 Pulse 99 Resp 22 B/P (MAP) 120/68 Pulse Ox 99 O2 Delivery Room Air Capillary Refill : Less Than 3 Seconds Blood Pressure Mean: 82 Progress Note : Time: 02:26 Progress Note Patient was treated with Rocephin during her prior ER visit. Nausea was treated with Phenergan. She took Zofran at home prior to arrival. Pain was initially treated with fentanyl and later Toradol. She received 2 L of IV fluid. Patient has signs of sepsis with tachycardia and fever in the context of urinary tract infection and obstructing ureteral stone. She likely has pyelonephritis. I discussed the situation with Dr. Tolentino. He agrees that she needs urology consultation. However, he is not in [place] tomorrow to be able to place a stent if needed. He recommended transfer to a facility that can accommodate her needs. Patient had been to [facility] previously, but [facility] is on transfer diversion. [facility] was graciously able to accommodate her needs. Transfer was excepted by Dr. Corcoran, hospitalist in consultation with Dr. Novoa, urologist. Blood pressure has remained stable and tachycardia has significantly improved. Unfortunately, no EMS transport is available until after 08:00. Patient is stable for transport by private vehicle and guarantees that she will go directly from our emergency room to [facility] for admission. Diagnostic Imaging Diagonstic Imaging: CT Plain Films/CT/US/NM/MRI: abdomen, pelvis Comments NAME: ZIA BRAXTON [facility] REC#: [id number] PT STATUS: REG ER : 1985 PHYSICIAN: BENSON MUSA THEATER TEACHER ADMIT DATE: 05/14/22/ER Signed Date of Exam:05/14/22 CT ABDOMEN/PELVIS W EXAMINATION: CT abdomen and pelvis with intravenous contrast. TECHNIQUE: Multiple contiguous axial images were obtained through the abdomen and pelvis after the uneventful administration of intravenous contrast. All CT scans use one or more of the following dose optimizing techniques: automated exposure control, MA and/or KvP adjustment based on patient size and exam type or iterative reconstruction. HISTORY: Right flank pain, nausea COMPARISON: 05/25/2019 FINDINGS: Lung bases: Bibasilar dependent atelectasis. Solid organs: The liver is normal without focal lesion. The gallbladder is normal. There is no biliary ductal dilation. Pancreas is normal. Spleen is normal. Adrenal glands are normal. There is a 0.5 cm calculus within the mid right ureter resulting in moderate hydronephrosis and mildly delayed right nephrogram. Left kidney is unremarkable without hydronephrosis. Bowel: The stomach and small bowel are normal without obstruction. The colon is unremarkable. No findings of acute appendicitis. Peritoneum: There is no intraperitoneal free fluid or free air. No suspicious lymphadenopathy. Vasculature: Normal without aneurysm. Musculoskeletal: No suspicious osseous lesion or compression fracture. Pelvis: There is mild fluid within the endometrial cavity. Suggestion of a uterine fibroid. The urinary bladder is normal. IMPRESSION: A 0.5 cm calculus within the mid right ureter resulting in mild right hydronephrosis. Dictated by: Dictated on workstation # [id number] Dict: 05/14/22 1547 Trans: 05/14/22 1553 PJ [id number] Interpreted by: TERRENCE CONTRERAS DO Electronically signed by: TERRENCE CONTRERAS DO 05/14/22 1553 Departure Impression Primary Impression: Sepsis Qualified Codes: A41.9 - Sepsis, unspecified organism Additional Impressions: Ureteral stone with hydronephrosis Pyelonephritis Nausea vomiting and diarrhea Disposition: XFER SHT-TRM HOSP Condition: Improved Transfer Transfer Reason: Exceeds level of care Time Spoke to Accepting Phy: 00:10 Transfer Progress Notes Transfer accepted by Dr. Corcoran and Dr. Novoa at [facility]. Transfer Time: 02:40 Transfer Facility: [facility] Method of Transfer: Private Vehicle Departure-Patient Inst. Referrals: NO,LOCAL PHYSICIAN (PCP/Family) Primary Care Physician MEG SILVA MD May 14, 2022 22:11
[2022-05-14] MEDS ORDERED: KETOROLAC 30 MG/ML VIAL IVP ONE (22:15)
[2022-05-14 23:04] LABS: INR 1.1 (0.8-1.4); PROTHROMBIN TIME PATIENT 14.6 SEC (12.2-14.7)
[2022-05-15] MEDS ORDERED: MAGNESIUM 1 GM/100 ML IVPB 100 ML IV ONE (00:15)
[2022-05-15 02:47] VITALS: BP 120/68
== END 2022-05-15 02:54 | disposition short-term general hospital (02) ==
LOC: EDUNIT# 18:22 → ER 18:25
DX: A41.9 Sepsis, unspecified organism (principal); N13.2 Hydronephrosis with renal and ureteral calculous obstruction; N12 Tubulo-interstitial nephritis, not specified as acute or chronic; E66.01 Morbid (severe) obesity due to excess calories; Z68.42 Body mass index [BMI] 45.0-49.9, adult; Z20.822 Contact with and (suspected) exposure to COVID-19
CPT/HCPCS: 36415; 80048; 83605; 83735; 85007; 85027; 85610; 85730; 86141; 87040; 87636

== ENCOUNTER 2022-06-16 11:02 | Emergency (ER) | payer OTHER ==
[~2022-06-16] VITALS: Ht 157.4 cm; Wt 122.1 kg
--- NOTE | 2022-06-16 12:14 | ED Abdominal Pain ---
General Chief Complaint: - Reproductive Stated Complaint: UPPER LEFT ABD/RIGHT FLANK PAIN Nursing Triage Note: RECENT KIDNEY STONE, LITHOTRIPSY ON SundayJun STENT REMOVED ON THIS PAST SUNDAY SINCE HAS BEEN HAVING INCREASED PAIN IN BILATERAL FLANK. Source of Information: Patient Exam Limitations: No Limitations History of Present Illness Date Seen by Provider: Jun 16, 2022 Time Seen by Provider: 11:20 Initial Comments Patient is a 37-year-old female who presents to the emergency department for evaluation of bilateral flank pain. Patient had lithotripsy and a ureteral stent placed earlier last month. The stent was removed on Sunday. Patient states since that time she has been having increasing pain. She had a urinalysis done at a walk-in clinic on Sunday that was unremarkable per her report. She denies any fever. Denies any nausea/vomiting. She states she has been taking Tylenol for the symptoms with minimal improvement. Allergies and Home Medications Allergies Coded Allergies: No Known Drug Allergies (Unverified , 09/12/11) Patient Home Medication List Home Medication List Reviewed: Yes Cephalexin (Cephalexin) 500 Mg Tablet, 500 MG PO TID Prescribed by: Sophia Mcpherson on 05/14/22 1634 Ondansetron (Ondansetron Odt) 4 Mg Tab.rapdis, 4 MG SL Q4H PRN for NAUSEA/VOMITING Prescribed by: Sophia Mcpherson on 05/14/22 1633 Tramadol HCl (Tramadol HCl) 50 Mg Tablet, 50 MG PO Q4H PRN for pain Prescribed by: RIGO BEACH MD on 05/14/22 1653 Review of Systems Review of Systems Constitutional: no symptoms reported EENTM: No Symptoms Reported Respiratory: No Symptoms Reported Cardiovascular: No Symptoms Reported Gastrointestinal: See HPI, Abdominal Pain Genitourinary: See HPI, Flank Pain Musculoskeletal: no symptoms reported Skin: no symptoms reported Psychiatric/Neurological: No Symptoms Reported Endocrine: No Symptoms Reported Hematologic/Lymphatic: No Symptoms Reported Past Imyyvif-Tjbgzz-Wrflkc Hx Patient Social History Tobacco Use?: No Use of E-Cig and/or Vaping dev: No Substance use?: No Alcohol Use?: No Pt feels they are or have been: No Immunizations Up To Date Tetanus Booster (TDap): Unknown PED Vaccines UTD: Yes Influenza Vaccine Up-to-Date: No; Not Current First/Initial COVID19 Vaccinat: 2020 Second COVID19 Vaccination Ben: 2020 Seasonal Allergies Seasonal Allergies: No Past Medical History Surgery/Hospitalization HX: HYSTEROSCOPY, I&D, PCOS, INSULIN RESTANT LITHOTRISPY Jun Surgeries: Yes (LAPAROSCOPY/HYSTEROSCOPY FOR INFERTILITY ISSUES, abscess I&D) Respiratory: No Cardiac: No Neurological: No Reproductive Disorders: Yes (INFERTILITY) Female Reproductive Disorders: Menstrual Problems, Polycystic Ovarian Dis Genitourinary: Yes Kidney Stones Gastrointestinal: No Musculoskeletal: No Endocrine: Yes (MORBID OBESITY, insulin resistance, prediabetes) HEENT: No Cancer: No Psychosocial: No Integumentary: Yes Blood Disorders: No Family Medical History Heart Disease, Diabetes, Other Conditions/Hx Physical Exam Vital Signs Vital Signs - First Documented 06/16/22 11:15 Temp 36.2 Pulse 79 Resp 18 B/P (MAP) 136/85 (102) Pulse Ox 97 O2 Delivery Room Air Capillary Refill : Less Than 3 Seconds Height/Weight/BMI Height: 5'2.00" Weight: 250lbs. oz. 113.569828tr; 49.00 BMI Method:Stated General Appearance: WD/WN, no apparent distress HEENT: PERRL/EOMI, normal ENT inspection, TMs normal, pharynx normal Neck: non-tender, full range of motion, supple, normal inspection Respiratory: chest non-tender, lungs clear Cardiovascular: regular rate, rhythm Gastrointestinal: normal bowel sounds, non tender, soft Extremities: normal range of motion, non-tender Neurologic/Psychiatric: no motor/sensory deficits, alert, normal mood/affect, oriented x 3 Skin: normal color, warm/dry Progress/Results/Core Measures Results/Orders Lab Results Laboratory Tests Test 06/16/22 11:30 06/16/22 11:47 Range/Units White Blood Count 6.8 4.3-11.0 10^3/uL Red Blood Count 4.49 3.80-5.11 10^6/uL Hemoglobin 14.1 11.5-16.0 g/dL Hematocrit 42 35-52 % Mean Corpuscular Volume 93 80-99 fL Mean Corpuscular Hemoglobin 31 25-34 pg Mean Corpuscular Hemoglobin Concent 34 32-36 g/dL Red Cell Distribution Width 13.2 10.0-14.5 % Platelet Count 344 130-400 10^3/uL Mean Platelet Volume 10.4 9.0-12.2 fL Immature Granulocyte % (Auto) 0 % Neutrophils (%) (Auto) 67 42-75 % Lymphocytes (%) (Auto) 25 12-44 % Monocytes (%) (Auto) 7 0-12 % Eosinophils (%) (Auto) 1 0-10 % Basophils (%) (Auto) 1 0-10 % Neutrophils # (Auto) 4.5 1.8-7.8 10^3/uL Lymphocytes # (Auto) 1.7 1.0-4.0 10^3/uL Monocytes # (Auto) 0.5 0.0-1.0 10^3/uL Eosinophils # (Auto) 0.0 0.0-0.3 10^3/uL Basophils # (Auto) 0.0 0.0-0.1 10^3/uL Immature Granulocyte # (Auto) 0.0 0.0-0.1 10^3/uL Sodium Level 139 135-145 MMOL/L Potassium Level 3.8 3.6-5.0 MMOL/L Chloride Level 106 98-107 MMOL/L Carbon Dioxide Level 23 21-32 MMOL/L Anion Gap 10 5-14 MMOL/L Blood Urea Nitrogen 7 7-18 MG/DL Creatinine 0.70 0.60-1.30 MG/DL Estimat Glomerular Filtration Rate 114 BUN/Creatinine Ratio 10 Glucose Level 145 H 70-105 MG/DL Calcium Level 9.7 8.5-10.1 MG/DL Corrected Calcium 9.6 8.5-10.1 MG/DL Total Bilirubin 0.4 0.1-1.0 MG/DL Aspartate Amino Transf (AST/SGOT) 19 5-34 U/L Alanine Aminotransferase (ALT/SGPT) 33 0-55 U/L Alkaline Phosphatase 58 40-136 U/L Total Protein 8.1 6.4-8.2 GM/DL Albumin 4.1 3.2-4.5 GM/DL Urine Color YELLOW Urine Clarity CLEAR Urine pH 6.0 5-9 Urine Specific [place] <=1.005 1.016-1.022 Urine Protein NEGATIVE NEGATIVE Urine Glucose (UA) NEGATIVE NEGATIVE Urine Ketones NEGATIVE NEGATIVE Urine Nitrite NEGATIVE NEGATIVE Urine Bilirubin NEGATIVE NEGATIVE Urine Urobilinogen 0.2 < = 1.0 MG/DL Urine Leukocyte Esterase NEGATIVE NEGATIVE Urine RBC (Auto) TRACE-I H NEGATIVE Urine RBC RARE /HPF Urine WBC RARE /HPF Urine Squamous Epithelial Cells NONE /HPF Urine Crystals NONE /LPF Urine Bacteria NEGATIVE /HPF Urine Casts NONE /LPF Urine Mucus NEGATIVE /LPF Urine Culture Indicated NO Urine Test NEGATIVE NEGATIVE My Orders Orders - MAXX SUÁREZ APRN Ua Culture If Indicated (06/16/22 12:13) Hcg,Qualitative Urine (06/16/22 12:13) Cbc With Automated Diff (06/16/22 12:13) Comprehensive Metabolic Panel (06/16/22 12:13) Ct Abdomen/Pelvis Wo (06/16/22 12:13) Iv/Invasive Line Insertion .IV INSERT (06/16/22 12:13) Vital Signs/I&O 06/16/22 06/16/22 11:15 13:55 Temp 36.2 Pulse 79 72 Resp 18 16 B/P (MAP) 136/85 (102) 117/69 Pulse Ox 97 99 O2 Delivery Room Air Room Air Blood Pressure Mean: 102 Progress Progress Note : Progress Note Patient is nontoxic and well-hydrated on exam. No adventitious lung sounds or increased work of breathing noted. No significant tenderness to palpation noted on abdominal exam. Laboratory evaluation is unremarkable. Urinalysis unremarkable. CT of the abdomen and pelvis reveals no acute abnormality. Dis cussed supportive care and anticipatory guidance. Follow-up with PCP. Return precautions for symptomology discussed. Patient verbalized understanding. Departure Impression Primary Impression: Bilateral flank pain Disposition: 01 HOME, SELF-CARE Condition: Stable Departure-Patient Inst. Decision time for Depature: 13:45 Referrals: NO,LOCAL PHYSICIAN (PCP/Family) Primary Care Physician Patient Instructions: Flank Pain ED Add. Discharge Instructions: Take your oxycodone as previously prescribed for breakthrough pain. You may also use tylenol and ibuprofen as needed for mild-moderate pain. All discharge instructions reviewed with patient and/or family. Voiced understanding. MAXX SUÁREZ APRN Jun 16, 2022 12:14
[2022-06-16 12:20] LABS: BASOPHILS % (AUTO) 1 % (0-10); EOSINOPHILS % (AUTO) 1 % (0-10); HEMATOCRIT 42 % (35-52); HEMOGLOBIN 14.1 g/dL (11.5-16.0); LYMPHOCYTES # (AUTO) 1.7 10^3/uL (1.0-4.0); LYMPHOCYTES % (AUTO) 25 % (12-44); MEAN CORPUSCULAR HEMOGLOBIN 31 pg (25-34); MEAN CORPUSCULAR HGB CONC 34 g/dL (32-36); MEAN CORPUSCULAR VOLUME 93 fL (80-99); MEAN PLATELET VOLUME 10.4 fL (9.0-12.2); MONOCYTES # (AUTO) 0.5 10^3/uL (0.0-1.0); MONOCYTES % (AUTO) 7 % (0-12); NEUTROPHILS # (AUTO) 4.5 10^3/uL (1.8-7.8); NEUTROPHILS % (AUTO) 67 % (42-75); PLATELET COUNT 344 10^3/uL (130-400); WHITE BLOOD COUNT 6.8 10^3/uL (4.3-11.0)
[2022-06-16 12:22] LABS: BILIRUBIN,URINE NEGATIVE (NEGATIVE); CLARITY,URINE CLEAR; COLOR,URINE YELLOW; GLUCOSE, URINE (UA) NEGATIVE (NEGATIVE); KETONES,URINE NEGATIVE (NEGATIVE); LEUKOCYTE ESTERASE ,URINE NEGATIVE (NEGATIVE); NITRITE,URINE NEGATIVE (NEGATIVE); PROTEIN,URINE NEGATIVE (NEGATIVE)
[2022-06-16 12:28] LABS: BACTERIA,URINE NEGATIVE /HPF; RBC,URINE RARE /HPF; WBC,URINE RARE /HPF
[2022-06-16 12:35] LABS: ALBUMIN 4.1 GM/DL (3.2-4.5); BILIRUBIN,TOTAL 0.4 MG/DL (0.1-1.0); CALCIUM 9.7 MG/DL (8.5-10.1); CREATININE SERUM 0.7 MG/DL (0.60-1.30); POTASSIUM 3.8 MMOL/L (3.6-5.0); TOTAL PROTEIN 8.1 GM/DL (6.4-8.2)
--- NOTE | 2022-06-16 13:12 | Diagnostic Imaging Report ---
EXAMINATION: CT abdomen and pelvis without contrast. TECHNIQUE: Multiple contiguous axial images were obtained through the abdomen and pelvis without the use of intravenous contrast. All CT scans use one or more of the following dose optimizing techniques: automated exposure control, MA and/or KvP adjustment based on patient size and exam type or iterative reconstruction. HISTORY: bilateral flank pain L>R COMPARISON: 05/14/2022 FINDINGS: Lung bases: The lung bases are clear. Solid organs: The liver is normal. The gallbladder is normal. There is no biliary ductal dilation. Pancreas is normal. Spleen is normal. Adrenal glands are normal. The kidneys are normal without visualized calculus or hydronephrosis. Bowel: The stomach and small bowel are normal without obstruction. The colon and appendix are normal. Peritoneum: There is no intraperitoneal free fluid or free air. No suspicious lymphadenopathy. Vasculature: Normal without aneurysm. Musculoskeletal: No suspicious osseous lesion or compression fracture. Pelvis: There is an anterior subserosal uterine fibroid. The urinary bladder is normal. IMPRESSION: 1. No acute abnormality in the abdomen or pelvis. 2. No obstructing renal calculus or hydronephrosis. Dictated by: Dictated on workstation # [id number]
[2022-06-16 13:55] VITALS: BP 117/69
== END 2022-06-16 13:55 | disposition home or self-care (01) ==
LOC: EDUNIT# 11:02 → ER 11:04
DX: R10.9 Unspecified abdominal pain (principal); E66.01 Morbid (severe) obesity due to excess calories; Z87.442 Personal history of urinary calculi; Z68.42 Body mass index [BMI] 45.0-49.9, adult; Z32.02 Encounter for pregnancy test, result negative
CPT/HCPCS: 36415; 74176; 80053; 81000; 84703; 85025

== ENCOUNTER → 2022-06-30 | Outpatient (CLI) | payer OTHER ==
--- NOTE | 2022-06-30 15:33 | Diagnostic Imaging Report ---
INDICATION: RLQ pain frequent micturition pelvic and perineal pain polycystic ovary COMPARISON: Chest radiograph dated 06/25/2020 FINDINGS: Supine and upright views of the abdomen show a nondistended bowel gas pattern. No abnormal air fluid levels or free intraperitoneal air is seen. No abnormal extraosseous calcifications are seen. Bony and soft tissue structures are within normal limits. No organomegaly is identified. Accompanying upright chest shows normal heart size and pulmonary vascularity. The lungs are well aerated and clear. The mediastinum is normal in appearance. IMPRESSION: 1. No bowel obstruction or free air. 2. Normal chest. No pneumonia or pulmonary edema. Dictated by: Dictated on workstation # [id number]
== END ==
LOC: RAD 12:50
PROVIDERS: ATTEND Registered Nurse Critical Care Medicine
DX: R10.31 Right lower quadrant pain (principal); R35.0 Frequency of micturition; R10.2 Pelvic and perineal pain; E28.2 Polycystic ovarian syndrome; J20.8 Acute bronchitis due to other specified organisms; J01.80 Other acute sinusitis; N76.89 Other specified inflammation of vagina and vulva
CPT/HCPCS: 74022

== ENCOUNTER 2022-07-03 16:56 | Emergency (ER) | payer OTHER ==
[~2022-07-03] VITALS: Ht 157.5 cm; Wt 115.2 kg
[2022-07-03 17:23] LABS: BILIRUBIN,URINE NEGATIVE (NEGATIVE); CLARITY,URINE CLEAR; COLOR,URINE YELLOW; GLUCOSE, URINE (UA) NEGATIVE (NEGATIVE); KETONES,URINE NEGATIVE (NEGATIVE); LEUKOCYTE ESTERASE ,URINE TRACE (NEGATIVE); NITRITE,URINE NEGATIVE (NEGATIVE); PH,URINE 5.5 (5-9); PROTEIN,URINE NEGATIVE (NEGATIVE)
[2022-07-03 17:31] LABS: BACTERIA,URINE TRACE /HPF; WBC,URINE 0-2 /HPF
[2022-07-03] MEDS ORDERED: MILK OF MAGNESIA 400 MG/5 ML 30 ML UDC PO STA (17:48)
--- NOTE | 2022-07-03 17:56 | ED Abdominal Pain ---
General Chief Complaint: Abdominal/GI Problems Stated Complaint: ABD PAIN,CONSTIPATION,BLOATING Nursing Triage Note: PT ABM TO RM 2 WITH COMPLAINT OF PELIC PAIN, BLOATING, AND CONSTIPATION. STATES SYMPTOMS STARTED ON SUNDAY. WENT TO URGENT CARE ON SUNDAY, IS WAITING ON XR REPORT FROM URGENT CARE. STATES TAKING MIRALAX HAS PRODUCED SMALL AMOUNT OF WATERY STOOL History of Present Illness Date Seen by Provider: Jul 03, 2022 Time Seen by Provider: 17:10 Initial Comments 37 year old female with PCOS presents with constipation for last 5-6 days. She is passing small amounts of watery stool and flatus. Has normal appetite and eating. Evaluated at Urgent Care 06/29/22 and had x-ray but had not received results. Does not have PCP, establishing Karis Orellana LOAN REVIEW ANALYST. Had kidney stones, once. Eating and drinking like normal, trying to increase activity. Timing/Duration: 3-4 Days Severity/Quality: Moderate Location: Generalized Abdomen Radiation: No Radiation Associated Symptoms: No Back Pain, No Swelling/Mass in Abdomen Allergies and Home Medications Allergies Coded Allergies: No Known Drug Allergies (Unverified , 09/12/11) Patient Home Medication List Home Medication List Reviewed: Yes Cephalexin (Cephalexin) 500 Mg Tablet, 500 MG PO TID Prescribed by: Sophia Mcpherson on 05/14/22 1634 Ondansetron (Ondansetron Odt) 4 Mg Tab.rapdis, 4 MG SL Q4H PRN for NAUSEA/VOMITING Prescribed by: Sophia Mcpherson on 05/14/22 1633 Tramadol HCl (Tramadol HCl) 50 Mg Tablet, 50 MG PO Q4H PRN for pain Prescribed by: RIGO BEACH MD on 05/14/22 1653 Review of Systems Review of Systems Constitutional: no symptoms reported, see HPI Gastrointestinal: See HPI, Abdominal Pain, Constipated; Denies Diarrhea, Denies Nausea, Denies Poor Appetite, Denies Poor Fluid Intake, Denies Rectal Bleeding, Denies Vomiting All Other Systems Reviewed Negative Unless Noted: Yes Past Pztaoog-Siuamm-Ryfwfi Hx Patient Social History Tobacco Use?: No Use of E-Cig and/or Vaping dev: No Substance use?: No Alcohol Use?: No Pt feels they are or have been: No Immunizations Up To Date Tetanus Booster (TDap): Unknown PED Vaccines UTD: Yes First/Initial COVID19 Vaccinat: 2020 Second COVID19 Vaccination Ben: 2020 Third COVID19 Vaccination Date: 2020 Seasonal Allergies Seasonal Allergies: No Past Medical History Surgery/Hospitalization HX: HYSTEROSCOPY, I&D, PCOS, INSULIN RESTANT LITHOTRISPY Jun Surgeries: Yes (LAPAROSCOPY/HYSTEROSCOPY FOR INFERTILITY ISSUES, abscess I&D) Respiratory: No Cardiac: No Neurological: No Reproductive Disorders: Yes (INFERTILITY) Female Reproductive Disorders: Menstrual Problems, Polycystic Ovarian Dis Genitourinary: Yes Kidney Stones Gastrointestinal: No Musculoskeletal: No Endocrine: Yes (MORBID OBESITY, insulin resistance, prediabetes) HEENT: No Cancer: No Psychosocial: No Integumentary: Yes Blood Disorders: No Family Medical History Reviewed Nursing Family Hx Heart Disease, Diabetes, Other Conditions/Hx Physical Exam Vital Signs Vital Signs - First Documented 07/03/22 07/03/22 17:03 19:15 Temp 36.5 Pulse 77 Resp 16 B/P (MAP) 139/75 (96) Pulse Ox 97 O2 Delivery Room Air Capillary Refill : Less Than 3 Seconds Height/Weight/BMI Height: 5'2.00" Weight: 250lbs. oz. 113.483698hi; 46.00 BMI Method:Stated General Appearance: WD/WN, no apparent distress HEENT: PERRL/EOMI, normal ENT inspection, TMs normal, pharynx normal Respiratory: chest non-tender, lungs clear, normal breath sounds Cardiovascular: normal peripheral pulses, regular rate, rhythm, no murmur Gastrointestinal: normal bowel sounds, non tender, soft, distended; No guarding, No rebound, No tenderness Extremities: normal range of motion, non-tender, normal inspection, no pedal edema, no calf tenderness, normal capillary refill Back: normal inspection, no CVA tenderness, no vertebral tenderness; No CVA tenderness (R), No CVA tenderness (L), No decreased range of motion, No muscle spasm, No vertebral tenderness Neurologic/Psychiatric: no motor/sensory deficits, alert, normal mood/affect, oriented x 3 Skin: normal color, warm/dry Progress/Results/Core Measures Results/Orders Lab Results Laboratory Tests Test 07/03/22 17:19 Range/Units Urine Color YELLOW Urine Clarity CLEAR Urine pH 5.5 5-9 Urine Specific [place] 1.020 1.016-1.022 Urine Protein NEGATIVE NEGATIVE Urine Glucose (UA) NEGATIVE NEGATIVE Urine Ketones NEGATIVE NEGATIVE Urine Nitrite NEGATIVE NEGATIVE Urine Bilirubin NEGATIVE NEGATIVE Urine Urobilinogen 0.2 < = 1.0 MG/DL Urine Leukocyte Esterase TRACE H NEGATIVE Urine RBC (Auto) 3+ H NEGATIVE Urine RBC 5-10 H /HPF Urine WBC 0-2 /HPF Urine Squamous Epithelial Cells 2-5 /HPF Urine Crystals NONE /LPF Urine Bacteria TRACE /HPF Urine Casts NONE /LPF Urine Mucus NEGATIVE /LPF Urine Culture Indicated NO My Orders Orders - VILLA DIAZ Ua Culture If Indicated (07/03/22 17:10) Urine Bedside (07/03/22 17:10) Ct Abd/Pelvis Wo(Kidney Stone) (07/03/22 17:47) Hyoscyamine Sl Tablet (Levsin Sl Tablet) (07/03/22 18:00) Docusate Sodium Capsule (Colace Capsule) (07/03/22 18:04) Medications Given in ED Current Medications Medications Dose Ordered Sig/Milly Route Start Time Stop Time Status Last Admin Dose Admin Hyoscyamine Sulfate 0.125 mg ONCE ONCE SL 07/03/22 18:00 07/03/22 18:01 DC 07/03/22 18:06 0.125 MG Vital Signs/I&O 07/03/22 07/03/22 17:03 19:15 Temp 36.5 Pulse 77 67 Resp 16 16 B/P (MAP) 139/75 (96) 112/58 Pulse Ox 97 98 O2 Delivery Room Air Room Air Blood Pressure Mean: 96 Progress Progress Note : Time: 17:10 Progress Note Reviewed x-ray findings from last week with patient. No acute findings. discussed her issues in detail, with PCOS she can experience irritable bowel syndrome. She had great bowel sounds and is eating without n/v so very doubtful bowel obstruction. Discussed risks vs benefits of CT. She had 1 in May and 01 Jun 2022 of abd/pelvis, both normal. She wishes to proceed with CT to "find out what is causing my constipation" Stressed the CT may not show the cause but will eliminate any emergent concerns. She understands the risks associated with radiation. 1814 CT showed small right renal stone, non-obstructing. No bowel obstruction or other acute findings. Will give Colace and recommend enema when she returns home. Patient agreeable. Stressed importance to establish with PCP to have her multiple concerns managed. Patient agreeable. Discharge instructions and return precautions reviewed with the patient Diagnostic Imaging Diagonstic Imaging: CT Plain Films/CT/US/NM/MRI: abdomen, pelvis Comments NAME: Z[facility]RA[facility]TON [facility] REC#: [id number] PT STATUS: REG ER : 1985 PHYSICIAN: VILLA DIAZ DEVELOPMENTAL TRAINING COUNSELOR ADMIT DATE: 07/03/22/ER Draft Date of Exam:07/03/22 CT ABD/PELVIS WO(KIDNEY STONE) PROCEDURE: CT abdomen and pelvis without contrast. TECHNIQUE: Multiple contiguous axial images were obtained through the abdomen and pelvis without the use of intravenous contrast. Auto Exposure Controls were utilized during the CT exam to meet ALARA standards for radiation dose reduction. DATE: July 03, 2022. COMPARISON: CT abdomen and pelvis June 16, 2022. INDICATION: 37-year-old female, bilateral flank pain. Microhematuria. FINDINGS: There are limitations for evaluation of the abdominal organs, neoplastic processes, abscess, and limited evaluation of the vasculature relating to the lack of intravenous contrast. There is minimal atelectasis in the imaged lung bases. The heart is not enlarged. There is no pericardial effusion. The liver is unremarkable in size and contour. The gallbladder is unremarkable. There is no intrahepatic or extrahepatic bile duct dilation. The main pancreatic duct is not abnormally dilated. Unremarkable appearance of the pancreatic parenchyma. The spleen is normal in size. The adrenal glands are unremarkable. There is a 1 to 2 mm nonobstructing right renal stone on axial image 83. The urinary collecting systems are not distended. There is no identified ureteral stone. The urinary bladder is unremarkable. There is somewhat prominent low-attenuation in the central aspect of the uterus. This is not well-evaluated on CT and is largely similar to the prior study. The intestinal tract is not distended. There is no evidence of acute appendicitis. The appendix is best seen on axial image 129 and adjacent sequential images. There is no free intraperitoneal air. There is no drainable fluid collection. There is no free pelvic fluid. There is no identified abnormally enlarged lymph node in the abdomen or pelvis which meets CT size criteria for adenopathy. There is no identified acute bony abnormality. IMPRESSION: CT ABDOMEN AND PELVIS. 1. A 1 to 2 mm nonobstructing right renal stone. 2. No current ureteral stone or hydronephrosis. 3. No identified acute abnormality in the abdomen or pelvis. Dictated on workstation # [id number] Dict: 07/03/22 1805 Trans: 07/03/22 1838 [facility] [id number] Interpreted by: MARIO PALACIOS MD Electronically signed by: Reviewed: Reviewed by Me Departure Impression Primary Impression: Irritable bowel Qualified Codes: K58.9 - Irritable bowel syndrome without diarrhea Additional Impressions: Abdominal pain Qualified Codes: R10.84 - Generalized abdominal pain Right renal stone Disposition: HOME, SELF-CARE Condition: Improved Departure-Patient Inst. Decision time for Depature: 18:10 Referrals: [facility] [place] [facility],LOCAL PHYSICIAN (PCP) Primary Care Physician Patient Instructions: Constipation, Adult (DC) Add. Discharge Instructions: Increase water intake, 16 oz every 2 hours while awake. Use Miralax 1 packet twice daily until passing stools, then 1 packet once daily for 3-4 more days, then every other day. Use Fleets Enema when you return home, these are over the counter. Try to hold for 5-10 min, lying on your left side. Increase fiber in your diet. Walk for 15-30 min daily for exercise, not including normal daily activity. Establish care with Karis Orellana NP at [facility], as scheduled. Follow up at [facility] walk in, if symptoms are not improving or worsen. Return to Emergency Dept for new, urgent healthcare needs. All discharge instructions reviewed with patient and/or family. Voiced understanding. VILLA DIAZ Jul 03, 2022 17:56
[2022-07-03] MEDS ORDERED: HYOSCYAMINE 0.125 MG (LEVSIN) TAB SL ONE (18:00)
[2022-07-03] MEDS ORDERED: DOCUSATE SODIUM 100 MG (COLACE) CAP PO STA (18:04)
--- NOTE | 2022-07-03 18:38 | Diagnostic Imaging Report ---
PROCEDURE: CT abdomen and pelvis without contrast. TECHNIQUE: Multiple contiguous axial images were obtained through the abdomen and pelvis without the use of intravenous contrast. Auto Exposure Controls were utilized during the CT exam to meet ALARA standards for radiation dose reduction. DATE: July 03, 2022. COMPARISON: CT abdomen and pelvis June 16, 2022. INDICATION: 37-year-old female, bilateral flank pain. Microhematuria. FINDINGS: There are limitations for evaluation of the abdominal organs, neoplastic processes, abscess, and limited evaluation of the vasculature relating to the lack of intravenous contrast. There is minimal atelectasis in the imaged lung bases. The heart is not enlarged. There is no pericardial effusion. The liver is unremarkable in size and contour. The gallbladder is unremarkable. There is no intrahepatic or extrahepatic bile duct dilation. The main pancreatic duct is not abnormally dilated. Unremarkable appearance of the pancreatic parenchyma. The spleen is normal in size. The adrenal glands are unremarkable. There is a 1 to 2 mm nonobstructing right renal stone on axial image 83. The urinary collecting systems are not distended. There is no identified ureteral stone. The urinary bladder is unremarkable. There is somewhat prominent low-attenuation in the central aspect of the uterus. This is not well-evaluated on CT and is largely similar to the prior study. The intestinal tract is not distended. There is no evidence of acute appendicitis. The appendix is best seen on axial image 129 and adjacent sequential images. There is no free intraperitoneal air. There is no drainable fluid collection. There is no free pelvic fluid. There is no identified abnormally enlarged lymph node in the abdomen or pelvis which meets CT size criteria for adenopathy. There is no identified acute bony abnormality. IMPRESSION: CT ABDOMEN AND PELVIS. 1. A 1 to 2 mm nonobstructing right renal stone. 2. No current ureteral stone or hydronephrosis. 3. No identified acute abnormality in the abdomen or pelvis. Dictated by: Dictated on workstation # [id number]
[2022-07-03 19:15] VITALS: BP 112/58
== END 2022-07-03 19:18 | disposition home or self-care (01) ==
LOC: EDUNIT# 16:56 → ER 16:58
DX: K58.9 Irritable bowel syndrome, unspecified (principal); N20.0 Calculus of kidney; E66.01 Morbid (severe) obesity due to excess calories; Z68.42 Body mass index [BMI] 45.0-49.9, adult; Z98.890 Other specified postprocedural states
CPT/HCPCS: 74176; 81000; 84703

== ENCOUNTER → 2022-12-01 | Outpatient (CLI) | payer OTHER ==
--- NOTE | 2022-12-01 16:20 | Diagnostic Imaging Report ---
PROCEDURE: Pelvic comp/transvaginal sonogram. TECHNIQUE: Complete transabdominal and transvaginal pelvic ultrasound was performed. In addition, limited pelvic Doppler was performed. INDICATION: Gynecological exam. FINDINGS: The uterus is anteverted measuring 8.0 x 4.9 x 5.7 cm. There appears to be a 3.5 cm fibroid. The endometrium is 11 mm in thickness. The right ovary measures 2.6 x 1.7 x 2.0 cm and the left ovary measures 2.7 x 1.5 x 1.7 cm. Both ovaries demonstrate blood flow. No adnexal mass or free fluid is detected. IMPRESSION: Uterine fibroid. The study is otherwise unremarkable. Dictated by: Dictated on workstation # [id number]
== END ==
LOC: RAD 14:49
PROVIDERS: ATTEND Nurse Practitioner Women's Health
DX: Z01.419 Encounter for gynecological examination (general) (routine) without abnormal findings (principal); D25.9 Leiomyoma of uterus, unspecified
CPT/HCPCS: 76830; 76856

== ENCOUNTER → 2022-12-18 | Outpatient (CLI) | payer OTHER ==
[~2022-12-18] MED LIST changes: +CATHETER FLUSH 10 ML SYR IVP PRN
--- NOTE | 2022-12-18 15:04 | Diagnostic Imaging Report ---
INDICATION: Right upper quadrant pain. TECHNIQUE: Patient was administered 5.5 mCi technetium-99m Choletec, and imaging over the abdomen was performed. At 45 minutes, patient ingested 8 ounces of Ensure, and a gallbladder ejection fraction was calculated. FINDINGS: There is homogeneous uptake of activity by the liver with prompt excretion of activity into the gallbladder and common duct. There is normal passage of activity into the small bowel. Small amount of gastric bile reflux is noted. Gallbladder ejection fraction is normal at 53%. IMPRESSION: 1. Patent cystic duct and common bile duct. 2. Mild gastric bile reflux. 3. Normal gallbladder ejection fraction of 53%. Dictated by: Dictated on workstation # [id number]
== END ==
LOC: CARD 12:09
PROVIDERS: ATTEND Surgery
DX: K83.5 Biliary cyst (principal); K81.9 Cholecystitis, unspecified
CPT/HCPCS: 78227; A9537

== ENCOUNTER 2023-01-24 13:02 | Outpatient (CLI) | payer OTHER ==
[~2023-01-24] VITALS: Ht 157.5 cm; Wt 110.7 kg
[~2023-01-24 13:02] MED LIST changes: -CATHETER FLUSH 10 ML SYR IVP PRN
[2023-01-24] MEDS ORDERED: NORE0.3561 PO (14:04)
--- NOTE | 2023-01-24 14:31 | HISTORY AND PHYSICAL ---
DATE OF SERVICE: 01/25/2023 HISTORY OF PRESENT ILLNESS: The patient is a 37-year-old female who we have seen before in the office. She reported some nonspecific abdominal symptoms, which started in May 2022. She had a right-sided nephrolithiasis and underwent lithotripsy. Approximately several weeks later, she then developed pain in different quadrants of the abdomen; however, this is mostly in the upper quadrants, including the right upper abdominal quadrant and did have some radiation of pain towards her back. She could not make any association between any types of foods that made this worse. She reports mild history of constipation, but no diarrhea. She did undergo an ultrasound, which did not show any gallstones. She then underwent a HIDA scan, which did show a normal ejection fraction of 53%; however, after the administration of the Kinevac analog, she did state that she did have pain in the right upper abdominal quadrant; however, this was short-lived and only lasted for approximately an hour. She was seen in the office recently with continued symptoms and reports that some days are better than others, but still reports pain in the right upper abdominal quadrant that does radiate towards her back and reports that she has even had some episodes of left upper quadrant pain. MEDICAL HISTORY: Nephrolithiasis, PCOS, sepsis with a stent. SURGICAL HISTORY: Lithotripsy and stent placement in 05/2022, I and D of thigh cellulitis in 06/2022, hysteroscope. ALLERGIES: No known drug allergies. MEDICATIONS: Lipitor. FAMILY HISTORY: Grandparent -- diabetes, myocardial infarction, DVT, hypertension. SOCIAL HISTORY: Negative for tobacco smoke. Negative for alcohol. VITAL SIGNS: Blood pressure is 120/80. Current weight is 250 pounds at 5 feet 2 inches. REVIEW OF SYSTEMS: This is a well-nourished female in no acute distress. She is not experiencing any shortness of breath or difficulty breathing. No chest pain, palpitations or diaphoresis. No nausea or vomiting. She does report right upper quadrant abdominal pain with radiation towards the back as well as left upper quadrant abdominal pain. No diarrhea or constipation. No red blood per rectum. No dark tarry stools. No fever or chills. No recent inadvertent weight loss. All other review of systems negative. PHYSICAL EXAM: CHEST: Clear. Good breath sounds bilaterally. HEART: Regular, no murmurs. EXTREMITIES: No lower extremity edema. Negative Homans sign. HEENT: No scleral icterus. No cervical lymphadenopathy. ABDOMEN: Soft, nondistended. There is some [id number] discomfort with deep palpation in the right upper abdominal quadrant. No palpable masses. No peritoneal signs. SKIN: Warm, dry and pink. NEUROLOGIC: Awake, alert and oriented x3. ASSESSMENT AND PLAN: A 37-year-old female with symptomatic biliary dyskinesia. At this time, she has tried to proceed with conservative management; however, has had continued symptoms and she reports that she feels like these are becoming more frequent and severe in nature. At this time, we will proceed with scheduling her for a laparoscopic cholecystectomy. Job ID: [id number] DocumentID: [id number] Dictated Date: 01/24/2023 13:02:42 Cnc Machine Setter Date: 01/24/2023 14:29:00 Dictated By: DANIA CASTLE APRN
[2023-01-25] MEDS ORDERED: HYDR-3817 PO (12:27)
== END 2023-01-24 14:27 ==
LOC: PREOP 13:02
PROVIDERS: ATTEND Surgery
DX: Z01.818 Encounter for other preprocedural examination (principal)

== ENCOUNTER 2023-01-25 12:12 | Day surgery (SDC) | payer OTHER ==
[2023-01-25] VITALS (11 sets, daily range): BP systolic 107–144; BP diastolic 69–85
[~2023-01-25 12:12] MED LIST changes: +NORE0.3561 PO
--- NOTE | 2023-01-25 12:26 | Progress Note-Pre Operative ---
Pre-Operative Progress Note Date H&P Reviewed: Jan 25, 2023 Time H&P Reviewed: 12:25 History & Physical: H&P Reviewed, Patient Examed, No changes noted Pre-Operative Diagnosis: Symptomatic biliary dyskinesia DANIA CASTLE APRN Jan 25, 2023 12:26
[2023-01-25] MEDS ORDERED: HYDR-3817 PO (12:27)
--- NOTE | 2023-01-25 12:27 | Discharge Inst-Surgical ---
D/C Lap Instructions-KIDO Reconcile Patient Problems Problems Reviewed?: Yes New, Converted, or Re-Newed RX: RX on Chart Follow Up Appt in 2 weeks Activity as tolerated No driving for 24 hours No driving while on pain medications Incentive Spirometry use every 2 hours while awake Regular Diet Symptoms to Report: Fever over 101 degree F, Nausea/Vomiting Infection Signs and Symptoms to report: Increased redness, Foul odor of wound, Increased drainage Bathing instructions: May shower Operative Area Clean/Dry; Keep incision clean/dry If any problems/questions: Contact your physician or go to Emergency Room DANIA CASTLE APRN Jan 25, 2023 12:27
[2023-01-25] MEDS ORDERED: HYDROcodone/ACETAMINOPHEN 5 MG/325 MG TABLET PO ONE (12:30)
[2023-01-25] MEDS ORDERED: ONDANSETRON 4 MG/2 ML (SDV) Z0FRAN IVP PRN ×2 (12:30→15:00)
[2023-01-25] MEDS ORDERED: morphine INJ 10 MG/ML 1ML (SYR OR VIAL) IVP PRN (12:30)
[2023-01-25] MEDS ORDERED: ACETAMINOPHEN 325 MG TABLET PO PRN (12:30)
[2023-01-25] MEDS ORDERED: LIDOCAINE/EPI 1%-1:100,000 (XYLOCAINE) 20ML ONE (12:37)
[2023-01-25] MEDS ORDERED: LIDOCAINE PF 2% 5 ML (XYLOCAINE) VIAL ONE (12:41)
[2023-01-25] MEDS ORDERED: SEVOFLURANE (ULTANE) 15 ML INHAL SOLN ONE ×2 (12:41→14:51)
[2023-01-25] MEDS ORDERED: proPOfol 200 MG/20 ML (DIPRIVAN) VIAL IV ONE (12:41)
[2023-01-25] MEDS ORDERED: ONDANSETRON 4 MG/2 ML (SDV) Z0FRAN ONE (12:41)
[2023-01-25] MEDS ORDERED: MIDAZOLAM 2 MG/2 ML (VERSED) VIAL ONE (12:41)
[2023-01-25] MEDS ORDERED: fentaNYL INJ 100 MCG/2 ML AMP ONE (12:41)
[2023-01-25] MEDS ORDERED: ROCURONIUM 50 MG/5 ML (ZEMURON) VIAL IV ONE ×2 (12:43→12:53)
[2023-01-25] MEDS ORDERED: ceFAZolin INJECTION 2,000 MG in NS (IVPB) 50 ML 50 ML IV ONE (12:45)
[2023-01-25] MEDS ORDERED: NEOSTIGMINE (BLOXIVERZ ) 1 MG/1ML 10 ML VIAL ONE (12:53)
[2023-01-25] MEDS ORDERED: GLYCOPYRROLATE 0.2 MG/ML (ROBINUL) 2 ML VIAL ONE (12:53)
[2023-01-25] MEDS ORDERED: dexAMETHasone INJ 10 MG/ML 1 ML VIAL ONE (12:53)
[2023-01-25] MEDS: LACTATED RINGERS 1,000 ML IV PRN ×2 (13:10→15:12)
--- NOTE | 2023-01-25 14:49 | Progress Note-Post Operative ---
Post-Operative Progess Note Surgeon (s)/Underground Conduit Installer (s) Surgeon JOSHUA ZAPATA MD Underground Conduit Installer: srinivas jeffrey [employer] Pre-Operative Diagnosis Symptomatic biliary dyskinesia Post-Operative Diagnosis same Procedure & Operative Findings Date of Procedure 01/25/23 Procedure Performed/Findings laparoscopic cholecystectomy Anesthesia Type get Estimated Blood Loss Estimated blood loss (mL): minimal Specimens/Packing Specimens Removed gallbladder JOSHUA ZAPATA MD Jan 25, 2023 14:49
[2023-01-25] MEDS ORDERED: morphine INJ 10 MG/ML 1ML (SYR OR VIAL) ONE (14:54)
[2023-01-25] MEDS ORDERED: HYDROmorphone 2 MG/ML VIAL (DILAUDID) IV ONE (15:00)
[2023-01-25] MEDS ORDERED: morphine INJ 10 MG/ML 1ML (SYR OR VIAL) IVP ONE (15:00)
--- NOTE | 2023-01-25 15:05 | Anesthesia-General Post-Op ---
General Patient Condition Mental Status/LOC: Same as Preop Cardiovascular: Satisfactory Nausea/Vomiting: Absent Respiratory: Satisfactory Pain: Controlled Complications: Absent Post Op Complications Complications None Follow Up Care/Instructions Patient Instructions None needed. Anesthesia/Patient Condition Patient Condition Patient is awake in PACU and doing well. She does C/O Abd. pain, which is to expected, and she is being given pain medication as ordered. She has stable vital signs, no apparent adverse anesthesia problems. No complications reported per nursing. BRENNEN MATTHEWS DO Jan 25, 2023 15:05
--- NOTE | 2023-01-25 16:44 | OPERATIVE REPORT ---
DATE OF SERVICE: 01/25/2023 ATTENDING CERTIFIED HYPERBARIC TECHNOLOGIST: Karis Orellana APRN. PREOPERATIVE DIAGNOSIS: Symptomatic biliary dyskinesia. POSTOPERATIVE DIAGNOSIS: Symptomatic biliary dyskinesia. Liver steatosis, distended gallbladder, no gallbladder wall thickening. PROCEDURE: Laparoscopic cholecystectomy. SURGEON: Joshua Zapata MD ANESTHESIA: General endotracheal. ESTIMATED BLOOD LOSS: Minimal. FINDINGS: Symptomatic biliary dyskinesia. Liver steatosis, distended gallbladder, no gallbladder wall thickening. DISPOSITION: The patient tolerated the procedure well. INDICATIONS: The patient is a 37-year-old female who was referred over to us for upper abdominal pain. She states that this began in 05/2022 after having a right sided lithotripsy for nephrolithiasis. She states that the pain was mostly in the upper abdominal quadrants and would also radiate towards the back. She states that there was association with food; however, no different types of foods. She did undergo an ultrasound of the gallbladder, which did not show any gallstones and this was followed by a HIDA scan, which showed a normal ejection fraction of 53%. However, after the administration of the Kinevac analogue, she did have reproduction of symptoms with pain in the upper abdominal quadrant with radiation towards the back. She states that this was present; however, only lasted for approximately 1 hour. She was seen back in the office and stated that she had continued symptoms again with right upper abdominal quadrant pain with radiation towards the back, usually after meals, likely consistent with symptomatic biliary dyskinesia. DESCRIPTION OF PROCEDURE: The patient was brought to the operating room, laid supine on the table. After adequate IV pain and sedative medications and general endotracheal intubation, the abdomen was prepped and draped in standard surgical fashion. A 0.5% Marcaine with epinephrine was then used to anesthetize the overlying skin in the left upper abdominal quadrant and a transverse skin incision made using a #15 blade. An 0 silk suture was applied to the medial aspect of the incision for retraction and Veress needle inserted with a low opening pressure of 0 mmHg and the abdomen was then insufflated to 15 mmHg pressure. The Veress needle removed and a 5 mm XL trocar placed followed by a 5 mm 45-degree angle laparoscope visualizing the peritoneal cavity. A 4-quadrant abdominal exploration was performed. There was liver steatosis and hepatomegaly. There was gallbladder distention; however, no gallbladder wall thickening. Under direct visualization, we then proceeded to place a supraumbilical 10 mm port after the skin and peritoneal lining were anesthetized using 0.5% Marcaine with epinephrine and a transverse skin incision was made with a #15 blade. In a similar manner, a right upper abdominal quadrant 5 mm port was placed. The patient was then placed in reverse Trendelenburg position as well as plane right side up, left side down. The fundus of the gallbladder was then retracted anteriorly and superiorly. The hepatoduodenal ligament was then dissected bluntly as well as using electrocautery on the hook instrument as well as a [place] dissector. The entire critical view of safety was identified including the triangle of Calot as well as the cystic duct and artery as the only 2 structures going into the gallbladder as well as the cystic plate behind the proximal gallbladder. A timeout was then taken and the cystic duct and artery were then clipped proximally and distally and cut with EndoShears. The gallbladder was then dissected off of the liver bed using cautery on the hook instrument with visualization of good hemostasis as well as no leaking ducts of Luschka. The gallbladder was removed through the 10 mm port site using an EndoCatch bag. The 10 mm port site fascia and peritoneum were then closed under direct visualization using a Don-Thomas device and an 0 Vicryl suture. The abdomen was then desufflated and the remaining ports were removed. All skin incisions were closed using 4-0 Monocryl running subcuticular sutures. Wounds were then cleaned and covered with Dermabond. The patient tolerated the procedure well. We will start IV normal pain medication as well as a clear liquid diet. Once tolerating clears, has good pain control with oral pain medications, ambulating well, we will discharge her home where she will be instructed to do no heavy lifting or exertion for the next 2 weeks. Job ID: [id number] DocumentID: [id number] Dictated Date: 01/25/2023 14:56:58 [employer] Date: 01/25/2023 16:42:00 Dictated By: JOSHUA ZAPATA MD
--- NOTE | 2023-01-31 09:12 | HISTORY AND PHYSICAL ---
DATE OF SERVICE: 01/25/2023 HISTORY OF PRESENT ILLNESS: The patient is a 37-year-old female who we have seen before in the office. She reported some nonspecific abdominal symptoms, which started in May 2022. She had a right-sided nephrolithiasis and underwent lithotripsy. Approximately several weeks later, she then developed pain in different quadrants of the abdomen; however, this is mostly in the upper quadrants, including the right upper abdominal quadrant and did have some radiation of pain towards her back. She could not make any association between any types of foods that made this worse. She reports mild history of constipation, but no diarrhea. She did undergo an ultrasound, which did not show any gallstones. She then underwent a HIDA scan, which did show a normal ejection fraction of 53%; however, after the administration of the Kinevac analog, she did state that she did have pain in the right upper abdominal quadrant; however, this was short-lived and only lasted for approximately an hour. She was seen in the office recently with continued symptoms and reports that some days are better than others, but still reports pain in the right upper abdominal quadrant that does radiate towards her back and reports that she has even had some episodes of left upper quadrant pain. MEDICAL HISTORY: Nephrolithiasis, PCOS, sepsis with a stent. SURGICAL HISTORY: Lithotripsy and stent placement in 05/2022, I and D of thigh cellulitis in 06/2022, hysteroscope. ALLERGIES: No known drug allergies. MEDICATIONS: Lipitor. FAMILY HISTORY: Grandparent -- diabetes, myocardial infarction, DVT, hypertension. SOCIAL HISTORY: Negative for tobacco smoke. Negative for alcohol. VITAL SIGNS: Blood pressure is 120/80. Current weight is 250 pounds at 5 feet 2 inches. REVIEW OF SYSTEMS: This is a well-nourished female in no acute distress. She is not experiencing any shortness of breath or difficulty breathing. No chest pain, palpitations or diaphoresis. No nausea or vomiting. She does report right upper quadrant abdominal pain with radiation towards the back as well as left upper quadrant abdominal pain. No diarrhea or constipation. No red blood per rectum. No dark tarry stools. No fever or chills. No recent inadvertent weight loss. All other review of systems negative. PHYSICAL EXAM: CHEST: Clear. Good breath sounds bilaterally. HEART: Regular, no murmurs. EXTREMITIES: No lower extremity edema. Negative Homans sign. HEENT: No scleral icterus. No cervical lymphadenopathy. ABDOMEN: Soft, nondistended. There is some [id number] discomfort with deep palpation in the right upper abdominal quadrant. No palpable masses. No peritoneal signs. SKIN: Warm, dry and pink. NEUROLOGIC: Awake, alert and oriented x3. ASSESSMENT AND PLAN: A 37-year-old female with symptomatic biliary dyskinesia. At this time, she has tried to proceed with conservative management; however, has had continued symptoms and she reports that she feels like these are becoming more frequent and severe in nature. At this time, we will proceed with scheduling her for a laparoscopic cholecystectomy. Job ID: [id number] DocumentID: [id number] Dictated Date: 01/24/2023 13:02:42 Account Development Specialist Date: 01/24/2023 14:29:00 Dictated By: DANIA CASTLE APRN <Dictated by DANIA CASTLE APRN> <Electronically signed by JOSHUA ZAPATA MD> 01/24/23 1521 MTDD
== END 2023-01-25 16:50 | disposition home or self-care (01) ==
LOC: SDC 12:12
PROVIDERS: ATTEND Surgery
DX: K82.8 Other specified diseases of gallbladder (principal); K81.1 Chronic cholecystitis; K76.0 Fatty (change of) liver, not elsewhere classified
CPT/HCPCS: 84703; 87081